=== PATIENT | female | born 1985 | race Caucasian/White ===

== ENCOUNTER 2016-05-24 18:54 | Emergency (ER) | payer BC, OTHER ==
[2016-05-24 19:01] VITALS: BP 108/71; PULSE 116; BMI 25.8
[2016-05-24] MEDS ORDERED: ACETAMINOPHEN 325 MG TABLET (FP) PO ONE (19:01)
[2016-05-24 19:56] LABS: BASOPHIL 0.3 % (0-2.0); MCH 27.1 pg (25.7-33.7); MCHC 33.9 g/dl (32.0-36.0); MEAN CELL VOLUME 79.9 fl (80-96); MEAN PLT VOLUME 12.9 fl (7.5-11.1); NEUTROPHILS 89.1 % (42.8-82.8); RDW 12.1 % (11.6-15.6); WHITE BLOOD COUNT 10.4 K/mm3 (4.0-10.0)
[2016-05-24 20:04] LABS: URINE APPEARANCE CLEAR; URINE BILIRUBIN NEGATIVE (NEGATIVE); URINE COLOR LTYELLOW; URINE GLUCOSE (UA) 3+ (NEGATIVE); URINE KETONE NEGATIVE (NEGATIVE); URINE LEUK ESTERASE NEGATIVE (NEGATIVE); URINE NITRITE NEGATIVE (NEGATIVE); URINE UROBILINOGEN NEGATIVE E.U./dl (0.2-1.0)
[2016-05-24 20:08] LABS: URINE BLOOD 2+ (NEGATIVE); URINE PROTEIN 2+ (NEGATIVE)
[2016-05-24 20:10] LABS: URINE RBC 40 /hpf (0-3); URINE WBC 4 /hpf (3-5)
[2016-05-24 20:20] LABS: ALBUMIN 2.9 g/dl (3.4-5.0); ANION GAP 12 (8-16); CALCIUM 8.7 mg/dL (8.5-10.1); CO2 25 mmol/L (21-32); GLUCOSE,RANDOM 291 mg/dL (74-106)
[2016-05-24 20:23] LABS: ALK PHOS 83 U/L (45-117); BILIRUBIN,TOTAL 0.3 mg/dL (0.2-1.0); COCKROFT - GAULT 102.8075; CREATININE 0.9 mg/dL (0.55-1.02); SGOT/AST 21 U/L (15-37); SGPT/ALT 14 U/L (12-78); TOT PROT 6.9 g/dl (6.4-8.2)
[2016-05-24 20:36] LABS: PLATELET COMMENT2 NO CLUMPING NOTED; PLATELET COUNT 105 K/MM3 (134-434); PLATELET ESTIMATE DECREASED (NORMAL)
[2016-05-24] MEDS ORDERED: SODIUM CHLORIDE 1,000 ML IV STA ×2 (20:45→22:36)
[2016-05-24] MEDS ORDERED: METOCLOPRAMIDE HCL INJECTION 10 MG/2 ML VIAL IVPB ONE (20:45)
[2016-05-24] MEDS ORDERED: METOCLOPRAMIDE HCL INJECTION 10 MG/2 ML VIAL ONE (20:47)
[2016-05-24] MEDS ORDERED: PANTOPRAZOLE SODIUM 40 MG in SODIUM CHLORIDE 100 ML IVPB ONE (22:36)
--- NOTE | 2016-05-24 22:41 | PDOC ---
History of Present Illness - General Chief Complaint: Cold Symptoms Stated Complaint: FEVER/VOMITING/BP PROBLEM Time Seen by Provider: 05/24/16 19:19 History Source: Patient Exam Limitations: No Limitations - History of Present Illness Initial Comments: 05/24/16 22:37 30yo Female patient presents to ED c/o fever (103), vomiting since Wednesday. Patient states prior to symptoms, she and significant other ate takeout and shortly developed symptoms afterward. Patient states she is currently being treated for UTI/Yeast infection. Associated H/A. Denies any other complaints at this time. Timing/Duration: getting worse Severity: mild Modifying Factors: worse with: cold therapy, eating, immobilization, medication , movement, rest, other Associated Symptoms: denies: denies symptoms, chest pain, cough, diaphoresis, fever/chills, headaches, loss of appetite, malaise, nausea/vomiting, rash, seizure, shortness of breath, syncope, weakness, other Past History - Travel Traveled outside of the country in the last 30 days: No Close contact w/someone who was outside of country & ill: No - Past Medical History Allergies/Adverse Reactions: Allergies Allergy/AdvReac Type Severity Reaction Status Date / Time No Known Allergies Allergy Verified 05/24/16 19:01 Home Medications: Ambulatory Orders Insulin (Novolog 70/30) [Novolog Mix 70/30 Vial] 0 ml SQ BID 09/08/15 Levofloxacin [Levaquin -] 500 mg PO DAILY #7 tablet 09/08/15 Famotidine [Pepcid -] 40 mg PO BID #14 tablet 05/25/16 Ondansetron [Zofran Odt -] 4 mg SL Q6H PRN #20 od.tablet 05/25/16 Diabetes: Yes (juvenile insulin dependent) - Psycho/Social/Smoking Cessation Hx Anxiety: No Suicidal Ideation: No Smoking History: Never smoked Have you smoked in the past 12 months: No Hx Alcohol Use: No Drug/Substance Use Hx: No Substance Use Type: None Review of Systems - Review of Systems Able to Perform ROS?: Yes Is the patient limited Turkish proficient: No Constitutional: No: Chills, Fever Respiratory: No: Cough, Shortness of Breath, Stridor, Wheezing Cardiac (ROS): No: Chest Pain, Lightheadedness, Palpitations, Syncope, Chest Tightness ABD/GI: Yes: Nausea, Poor Fluid Intake, Vomiting, Other (Generalized abdominal pain). No: Constipated, Diarrhea, Difficulty Swallowing, Poor Appetite, Rectal Bleeding, Abdominal cramping : No: Burning, Dysuria, Discharge, Frequency Musculoskeletal: No: Back Pain All Other Systems: Reviewed and Negative *Physical Exam - Vital Signs Last Vital Signs Temp Pulse Resp BP Pulse Ox 102.0 F H 116 H 20 108/71 99 05/24/16 18:58 05/24/16 18:58 05/24/16 18:58 05/24/16 18:58 05/24/16 18:58 - Physical Exam General Appearance: Yes: Nourished, Appropriately Dressed, Mild Distress. No: Apparent Distress, Moderate Distress, Severe Distress Neck: positive: Trachea midline, Normal Thyroid, Supple. negative: Lymphadenopathy (R), Lymphadenopathy (L) Respiratory/Chest: positive: Lungs Clear, Normal Breath Sounds. negative: Respiratory Distress, Accessory Muscle Use, Labored Respiration, Rapid RR, Stridor, Wheezing Cardiovascular: positive: Regular Rhythm, Regular Rate. negative: Edema, JVD, Murmur Gastrointestinal/Abdominal: positive: Normal Bowel Sounds, Tender, Soft, Increased Bowel Sounds, Tenderness (Generalized. No focal region of tenderness.) . negative: Distended, Guarding, Rebound Musculoskeletal: positive: Normal Inspection. negative: CVA Tenderness Extremity: positive: Normal Capillary Refill, Normal Inspection, Normal Range of Motion Integumentary: positive: Normal Color, Dry, Warm Neurologic: positive: solutions engineer II-XII NML intact, Fully Oriented, Alert, Normal Mood/ Affect, Normal Response, Motor Strength 5/5 ED Treatment Course - LABORATORY CBC & Chemistry Diagram: 05/24/16 19:30 05/24/16 19:30 - ADDITIONAL ORDERS Additional order review: Laboratory Results 05/24/16 05/24/16 19:41 19:30 Sodium 134 L Potassium 4.0 Chloride 97 L Carbon Dioxide 25 Anion Gap 12 BUN 13 D Creatinine 0.9 Creat Clearance w eGFR > 60 Random Glucose 291 H Calcium 8.7 Total Bilirubin 0.3 D AST 21 D ALT 14 D Alkaline Phosphatase 83 Total Protein 6.9 Albumin 2.9 L Lipase 68 L Urine Color Ltyellow Urine Appearance Clear Urine pH 6.0 Ur Specific [place] 1.031 Urine Protein 2+ H Urine Glucose (UA) 3+ H Urine Ketones Negative Urine Blood 2+ H Urine Nitrite Negative Urine Bilirubin Negative Urine Urobilinogen Negative Ur Leukocyte Esterase Negative Urine RBC 40 Urine WBC 4 Ur Epithelial Cells Rare Urine HCG, Qual Negative 05/24/16 19:30 RBC 4.38 MCV 79.9 L MCHC 33.9 RDW 12.1 MPV 12.9 H Neutrophils % 89.1 H Lymphocytes % 5.4 L D Monocytes % 5.2 Eosinophils % 0.0 Basophils % 0.3 - Medications Given in the ED: ED Medications Discontinued Medications Generic Name Dose Route Start Last Admin Trade Name Freq PRN Reason Stop Dose Admin Acetaminophen 650 mg 05/24/16 19:01 05/24/16 19:02 Tylenol - PO 05/24/16 19:02 650 mg NOW ONE Administration Sodium Chloride 1,000 mls @ 1,000 mls/hr 05/24/16 20:45 05/24/16 20:54 Normal Saline - IV 05/24/16 21:44 1,000 mls/hr ASDIR STA Administration Metoclopramide HCl 10 mg 05/24/16 20:45 05/24/16 20:55 Reglan Injection - IVPB 05/24/16 20:46 10 mg ONCE ONE Administration Medical Decision Making - Medical Decision Making 05/25/16 01:59 Re-evaluation: Patient in room eating potato chips, no acute distress and is requesting to be d/c'd *DC/Admit/Observation/Transfer Diagnosis at time of Disposition: Viral gastroenteritis - Discharge Dispostion Disposition: HOME Condition at time of disposition: Improved Admit: No - Prescriptions Prescriptions: Famotidine [Pepcid -] 40 mg PO BID #14 tablet Ondansetron [Zofran Odt -] 4 mg SL Q6H PRN #20 od.tablet PRN Reason: Nausea - Referrals Referrals: Dinah Woody [Primary Care Provider] - - Patient Instructions Printed Discharge Instructions: DI for Viral Gastroenteritis -- Adult Additional Instructions: FOLLOW UP WITH YOUR PRIMARY CARE PROVIDER. TAKE MEDICATIONS PRESCRIBED. AVOID ALCOHOL, SPICY FOODS X 2 WEEKS. RETURN IF SYMPTOMS WORSEN OR ANY CONCERNS FOR FURTHER EVALUATION. Print Language: SYRIAC
[2016-05-24] MEDS ORDERED: PANTOPRAZOLE SODIUM 100 ML IVPB ONE (22:50)
[2016-05-24] MEDS ORDERED: ACETAMINOPHEN 500 MG TABLET (FP) PO ONE (23:23)
[2016-05-24] MEDS ORDERED: ACETAMINOPHEN 325 MG TABLET (FP) ONE (23:27)
[2016-05-25] MEDS ORDERED: KETOROLAC TROMETHAMINE 30 MG/1 ML VIAL IVPUSH ONE (00:59)
[2016-05-25] MEDS ORDERED: KETOROLAC TROMETHAMINE 30 MG/1 ML VIAL ONE (01:10)
[2016-05-25 01:15] VITALS: TEMP 98.8
== END 2016-05-25 02:32 | disposition home or self-care (01) ==
LOC: JER 18:54
PROC: 3E033GC Introduction of Other Therapeutic Substance into Peripheral Vein, Percutaneous Approach (ICD-10-PCS; principal; 2016-05-24)
DX: A08.4 Viral intestinal infection, unspecified (principal); B97.89 Other viral agents as the cause of diseases classified elsewhere; E10.9 Type 1 diabetes mellitus without complications; Z79.4 Long term (current) use of insulin
CPT/HCPCS: 36415; 80053; 81003; 81015; 83690; 84703; 85025; 96374; 99283-25

== ENCOUNTER 2016-10-19 02:30 | Emergency (ER) | payer OTHER ==
[2016-10-19] MEDS ORDERED: SODIUM CHLORIDE 0.9% 1000 ML INFUS.BAG IV PRN (02:50)
[2016-10-19 02:52] VITALS: BMI 26.6
[2016-10-19] MEDS ORDERED: ACETAMINOPHEN 1000 MG/100 ML VIAL (NON FORMULARY) IVPB ONE ×2 (02:56→22:08)
[2016-10-19] MEDS ORDERED: ACETAMINOPHEN INJECTION 100 ML IVPB ONE (02:57)
--- NOTE | 2016-10-19 03:17 | PDOC ---
History of Present Illness - General Chief Complaint: Nausea/Vomiting Stated Complaint: VOMITING,FEVER,DIZZINESS Time Seen by Provider: 10/19/16 02:41 - History of Present Illness Initial Comments: 10/19/16 03:07 CHIEF COMPLAINT: lower abd pain, vomiting, fever HISTORY OF PRESENT ILLNESS: 31 yo F with hx of IDDM, HTN presents to ED with fever, abdominal pain, and vomiting since this afternoon. Patient reports that she has vomited 6 times and had a fever "of like 100F." Patient states she last took insulin this afternoon and her last blood sugar check was "around 200 " this afternoon. Patient states she does not remember her LMP as "it is irregular all the time." PAST MEDICAL HISTORY: as per HPI FAMILY HISTORY: Denies SOCIAL HISTORY: Denies tobacco, alcohol, illicit drug use. SURGICAL HISTORY: , R toe amputation s/p diabetic ulcer ALLERGIES: No known drug allergies REVIEW OF SYSTEMS General/Constitutional: Fever since this afternoon. Denies weakness, weight change. HEENT: Denies change in vision. Denies ear pain or discharge. Denies sore throat. Cardiovascular: Denies chest pain or shortness of breath. Respiratory: Denies cough, wheezing, or hemoptysis. Gastrointestinal: Vomiting, 6x today. Denies diarrhea or constipation. Denies rectal bleeding. Genitourinary: Denies dysuria, frequency, or change in urination. Musculoskeletal: Denies joint or muscle swelling or pain. Denies neck or back pain. Skin and breasts: Denies rash or easy bruising. Neurologic: Denies headache, vertigo, loss of consciousness, or loss of sensation. PHYSICAL EXAM General Appearance: Well-appearing, appropriately dressed. No apparent distress. HEENT: EOMI, PERRLA, normal ENT inspection, normal voice, TMs normal, pharynx normal. No conjunctival pallor. No photophobia, scleral icterus. Neck: Supple. Trachea midline. No tenderness, rigidity, carotid bruit, stridor , lymphadenopathy, or thyromegaly. Respiratory/Chest: Lungs CTAB. No shortness of breath, chest tenderness, respiratory distress, accessory muscle use. No crackles, rales, rhonchi, stridor , wheezing, dullness Cardiovascular: RRR. S1, S2. Gastrointestinal/Abdominal: Soft, protuberant abdomen. Tenderness to palpation to lower abdomen b/l. Normal bowel sounds. No organomegaly, pulsatile mass, guarding, hernia, hepatomegaly, splenomegaly. Musculoskeletal/Extremities: Normal inspection. FROM of all extremities, normal capillary refill. Pelvis Stable. No CVA tenderness. No tenderness to extremities, pedal edema, swelling, erythema or deformity. Integumentary: Appropriate color, dry, warm. No cyanosis, erythema, jaundice or rash Neurologic: bow tacker II-XII intact. Fully oriented, alert. Appropriate mood/affect. Motor strength 5/5. No appreciable EOM palsy, facial droop or sensory deficit. Past History - Past Medical History Allergies/Adverse Reactions: Allergies Allergy/AdvReac Type Severity Reaction Status Date / Time No Known Allergies Allergy Verified 05/24/16 19:01 Home Medications: Ambulatory Orders Insulin (Novolog 70/30) [Novolog Mix 70/30 Vial] 0 ml SQ BID 09/08/15 Cetirizine HCl [All Day Allergy] 10 mg PO DAILY 10/19/16 Gabapentin 300 mg PO TID 10/19/16 Insulin Lispro [Humalog] 8 unit SQ 10/19/16 Lisinopril [Zestril] 2.5 mg PO DAILY 10/19/16 Metformin HCl 500 mg PO HS 10/19/16 Metformin HCl [Glucophage] 1,000 mg PO AM 10/19/16 Montelukast Na [Singulair -] 10 mg PO DAILY 10/19/16 Naproxen [Naprosyn -] 500 mg PO PRN 10/19/16 Nitrofurantoin Monohyd/M-Cryst [Macrobid -] 100 mg PO BID #14 capsule 10/19/16 Diabetes: Yes (juvenile insulin dependent) - Psycho/Social/Smoking Cessation Hx Anxiety: No Suicidal Ideation: No Smoking History: Never smoked Have you smoked in the past 12 months: No Information on smoking cessation initiated: No Hx Alcohol Use: No Drug/Substance Use Hx: No Substance Use Type: None *Physical Exam - Vital Signs Last Vital Signs Temp Pulse Resp BP Pulse Ox 101.4 F H 122 H 19 151/94 97 10/19/16 02:49 10/19/16 02:49 10/19/16 02:49 10/19/16 02:49 10/19/16 02:49 ED Treatment Course - LABORATORY CBC & Chemistry Diagram: 10/19/16 03:12 10/19/16 03:12 - RADIOLOGY Radiology Studies Ordered: Category Date Time Status CHEST X-RAY PORTABLE* [RAD] Stat Radiology 10/19/16 02:50 Ordered Medical Decision Making - Medical Decision Making 10/19/16 03:17 31 yo F with hx of IDDM presents to ED with fever, lower abdominal pain, and vomiting since this afternoon. VS remarkable for temp 101.4, HR 122. Full sepsis workup ordered. -Tylenol IVPB Laboratory Tests 10/19/16 10/19/16 03:12 03:12 WBC 17.6 H D Sodium 135 L Potassium 5.2 H D BUN 35 H D Creatinine 1.3 H D Random Glucose 278 H -A&P CT r/o appy vs diverticulitis -1L IVF -2 units insulin SQ 10/19/16 06:16 Repeat VS stable. Patient finished drinking oral contrast at 545. Due for CT at 6:45 am. Laboratory Tests 10/19/16 05:30 Urine Glucose (UA) 3+ H Urine Blood 2+ H Urine RBC 9 Urine WBC 33 -Macrobid rx sent to pharm Case discussed in detail with oncoming emergency provider including history, physical exam and ancillary studies. In brief, this patient is being seen in the ED for a chief complaint of: abdominal pain, fever, vomiting I have completed the initial assessment interview note and have ordered the following labs: sepsis workup I have reviewed the following results: all Pending results: CT Please call the PCP: Dinah Woody Plan for disposition as follows: pending Oncoming NPBilly Castillo has assumed care for the patient and will complete the evaluation and treatment. *DC/Admit/Observation/Transfer Diagnosis at time of Disposition: UTI (urinary tract infection) Qualifiers: Urinary tract infection type: site unspecified Hematuria presence: with hematuria Qualified Code(s): N39.0 - Urinary tract infection, site not specified - Prescriptions Prescriptions: Nitrofurantoin Monohyd/M-Cryst [Macrobid -] 100 mg PO BID #14 capsule - Referrals Referrals: Dinah Woody [Primary Care Provider] -
[2016-10-19 03:26] LABS: EOSINOPHIL 7.8 % (0-4.5); MCH 27.5 pg (25.7-33.7); MCHC 33.6 g/dl (32.0-36.0); MEAN CELL VOLUME 81.9 fl (80-96); MEAN PLT VOLUME 12.5 fl (7.5-11.1); NEUTROPHILS 64.2 % (42.8-82.8); PLATELET COUNT 88 K/MM3 (134-434); WHITE BLOOD COUNT 17.6 K/mm3 (4.0-10.0)
[2016-10-19 03:31] LABS: VENOUS BLOOD GAS HCO3 27.1 meq/L (19-25); VENOUS PH 7.37 (7.32-7.42)
[2016-10-19] MEDS ORDERED: ONDANSETRON 4 MG/2 ML VIAL IVPUSH ONE (03:40)
[2016-10-19 03:51] LABS: INR 1.01 (0.82-1.09); PROTHROMBIN TIME (PATIENT) 11.1 SEC (9.98-11.88)
[2016-10-19] MEDS ORDERED: ONDANSETRON 4 MG/2 ML VIAL ONE (03:51)
[2016-10-19 03:54] LABS: ACTIVATED PTT 27.7 SECONDS (26.9-34.4)
[2016-10-19 04:03] LABS: ALBUMIN 4.6 g/dl (3.4-5.0); ANION GAP 6 (8-16); BILIRUBIN,TOTAL 0.4 mg/dL (0.2-1.0); CALCIUM 9.2 mg/dL (8.5-10.1); CO2 28 mmol/L (21-32); CREATININE 1.3 mg/dL (0.55-1.02); GLUCOSE,RANDOM 278 mg/dL (74-106); SGOT/AST 13 U/L (15-37); SGPT/ALT 14 U/L (12-78); TOT PROT 8.2 g/dl (6.4-8.2)
[2016-10-19 04:06] LABS: ALK PHOS 89 U/L (45-117)
[2016-10-19 04:07] LABS: CPK 81 IU/L (26-192); TROPONIN I < 0.02 ng/ml (0.00-0.05)
[2016-10-19 06:04] LABS: URINE APPEARANCE SLCLOUDY; URINE BILIRUBIN NEGATIVE (NEGATIVE); URINE BLOOD 2+ (NEGATIVE); URINE COLOR LTYELLOW; URINE GLUCOSE (UA) 3+ (NEGATIVE); URINE KETONE NEGATIVE (NEGATIVE); URINE LEUK ESTERASE TRACE (NEGATIVE); URINE NITRITE NEGATIVE (NEGATIVE); URINE PROTEIN NEGATIVE (NEGATIVE); URINE UROBILINOGEN NEGATIVE mg/dL (0.2-1.0)
[2016-10-19] MEDS ORDERED: INSULIN REGULAR HUMAN 100 UNITS/ML *VIAL SQ ONE (06:18)
[2016-10-19 06:32] LABS: URINE BACTERIA MANY /hpf (NONE SEEN); URINE HYALINE CAST 1 /lpf; URINE MUCUS RARE; URINE RBC 9 /hpf (0-3); URINE WBC 33 /hpf (3-5)
--- NOTE | 2016-10-19 08:50 | PDOC ---
*Physical Exam - Vital Signs Last Vital Signs Temp Pulse Resp BP Pulse Ox 98.6 F 97 H 17 103/63 98 10/19/16 06:11 10/19/16 06:11 10/19/16 06:11 10/19/16 06:11 10/19/16 06:11 ED Treatment Course - LABORATORY CBC & Chemistry Diagram: 10/19/16 03:12 10/19/16 03:12 - ADDITIONAL ORDERS Additional order review: Laboratory Results 10/19/16 10/19/16 10/19/16 05:30 03:34 03:20 INR PTT (Actin FS) VBG pH 7.37 POC VBG pCO2 48.7 POC VBG pO2 22.0 L Mixed VBG HCO3 27.1 H Sodium Potassium Chloride Carbon Dioxide Anion Gap BUN Creatinine Creat Clearance w eGFR Random Glucose Lactic Acid Calcium Total Bilirubin AST ALT Alkaline Phosphatase Creatine Kinase Troponin I Total Protein Albumin Lipase Serum , Qual Negative Urine Color Ltyellow Urine Appearance Slcloudy Urine pH 5.0 Urine Protein Negative Urine Glucose (UA) 3+ H Urine Ketones Negative Urine Blood 2+ H Urine Nitrite Negative Urine Bilirubin Negative Urine Urobilinogen Negative Ur Leukocyte Esterase Trace Urine RBC 9 Urine WBC 33 Ur Epithelial Cells Rare Urine Bacteria Many Hyaline Casts 1 Urine Mucus Rare Urine HCG, Qual Negative Acetone, Qual Blood Type Antibody Screen 10/19/16 10/19/16 10/19/16 03:12 03:12 03:12 INR PTT (Actin FS) VBG pH POC VBG pCO2 POC VBG pO2 Mixed VBG HCO3 Sodium Potassium Chloride Carbon Dioxide Anion Gap BUN Creatinine Creat Clearance w eGFR Random Glucose Lactic Acid 1.3 Calcium Total Bilirubin AST ALT Alkaline Phosphatase Creatine Kinase 81 Troponin I < 0.02 Total Protein Albumin Lipase Serum , Qual Urine Color Urine Appearance Urine pH Urine Protein Urine Glucose (UA) Urine Ketones Urine Blood Urine Nitrite Urine Bilirubin Urine Urobilinogen Ur Leukocyte Esterase Urine RBC Urine WBC Ur Epithelial Cells Urine Bacteria Hyaline Casts Urine Mucus Urine HCG, Qual Acetone, Qual Blood Type A POSITIVE Antibody Screen Negative 10/19/16 10/19/16 10/19/16 03:12 03:12 03:12 INR 1.01 PTT (Actin FS) 27.7 VBG pH POC VBG pCO2 POC VBG pO2 Mixed VBG HCO3 Sodium Potassium Chloride Carbon Dioxide Anion Gap BUN Creatinine Creat Clearance w eGFR Random Glucose Lactic Acid Calcium Total Bilirubin AST ALT Alkaline Phosphatase Creatine Kinase Troponin I Total Protein Albumin Lipase 172 Serum , Qual Urine Color Urine Appearance Urine pH Urine Protein Urine Glucose (UA) Urine Ketones Urine Blood Urine Nitrite Urine Bilirubin Urine Urobilinogen Ur Leukocyte Esterase Urine RBC Urine WBC Ur Epithelial Cells Urine Bacteria Hyaline Casts Urine Mucus Urine HCG, Qual Acetone, Qual Negative L Blood Type Antibody Screen 10/19/16 03:12 INR PTT (Actin FS) VBG pH POC VBG pCO2 POC VBG pO2 Mixed VBG HCO3 Sodium 135 L Potassium 5.2 H D Chloride 101 Carbon Dioxide 28 Anion Gap 6 L BUN 35 H D Creatinine 1.3 H D Creat Clearance w eGFR 47.17 Random Glucose 278 H Lactic Acid Calcium 9.2 Total Bilirubin 0.4 D AST 13 L D ALT 14 Alkaline Phosphatase 89 Creatine Kinase Troponin I Total Protein 8.2 Albumin 4.6 D Lipase Serum , Qual Urine Color Urine Appearance Urine pH Urine Protein Urine Glucose (UA) Urine Ketones Urine Blood Urine Nitrite Urine Bilirubin Urine Urobilinogen Ur Leukocyte Esterase Urine RBC Urine WBC Ur Epithelial Cells Urine Bacteria Hyaline Casts Urine Mucus Urine HCG, Qual Acetone, Qual Blood Type Antibody Screen 10/19/16 03:12 RBC 4.45 MCV 81.9 MCHC 33.6 RDW 13.0 MPV 12.5 H Neutrophils % 64.2 D Lymphocytes % 10.9 D Monocytes % 17.1 H D Eosinophils % 7.8 H D Basophils % 0.0 - Medications Given in the ED: ED Medications Discontinued Medications Generic Name Dose Route Start Last Admin Trade Name Freq PRN Reason Stop Dose Admin Acetaminophen 1,000 mg 10/19/16 02:56 10/19/16 03:22 Ofirmev Injection - IVPB 10/19/16 02:57 1,000 mg ONCE ONE Administration Insulin Human Regular 2 units 10/19/16 06:18 10/19/16 06:30 Novolin R Vial *For Ivpush Or Iv Drip Only* SQ 10/19/16 06:19 2 units ONCE ONE Administration Ondansetron HCl 8 mg 10/19/16 03:40 10/19/16 03:58 Zofran Injection IVPUSH 10/19/16 03:41 8 mg ONCE ONE Administration Medical Decision Making - Medical Decision Making 10/19/16 08:48 Pt received in sign out from SAL [place]. Pt with lower abd pain with n/v. Pt arrived febrile and had noted elevated leukcytes. Pt given ivf and had noted uti while in CT. CT of abdomen and pelvis shows no acute pathology. Patient will be discharged home with Macrobid. *DC/Admit/Observation/Transfer Diagnosis at time of Disposition: UTI (urinary tract infection) Qualifiers: Urinary tract infection type: site unspecified Hematuria presence: with hematuria Qualified Code(s): N39.0 - Urinary tract infection, site not specified - Discharge Dispostion Disposition: HOME Condition at time of disposition: Good - Prescriptions Prescriptions: Nitrofurantoin Monohyd/M-Cryst [Macrobid -] 100 mg PO BID #14 capsule - Referrals Referrals: Dinah Woody [Primary Care Provider] - - Patient Instructions Printed Discharge Instructions: DI for Urinary Tract Infection (UTI) Additional Instructions: CAT scan was negative for acute findings. You do have a urinary tract infection and a prescription was sent to start antibiotic today. Please drink plenty of fluids. Return to ED if symptoms worsen. - Post Discharge Activity
[2016-10-19 09:13] VITALS: BP 105/68; PULSE 88; TEMP 97.6
--- NOTE | 2016-10-19 22:11 | EKG ---
Test Reason : Blood Pressure : / mmHG Vent. Rate : 117 BPM Atrial Rate : 117 BPM P-R Int : 114 ms QRS Dur : 082 ms QT Int : 326 ms P-R-T Axes : 035 027 020 degrees QTc Int : 454 ms SINUS TACHYCARDIA OTHERWISE NORMAL ECG NO PREVIOUS ECGS AVAILABLE Confirmed by PATIENCE ALONSO MD ([id number]) on 10/19/2016 10:10:52 PM Referred By: Confirmed By:PATIENCE ALONSO MD
== END 2016-10-19 09:00 | disposition home or self-care (01) ==
LOC: JER 02:30
PROC: 3E013VG Introduction of Insulin into Subcutaneous Tissue, Percutaneous Approach (ICD-10-PCS; principal; 2016-10-19)
PROC: 3E033NZ Introduction of Analgesics, Hypnotics, Sedatives into Peripheral Vein, Percutaneous Approach (ICD-10-PCS; 2016-10-19)
PROC: 3E033GC Introduction of Other Therapeutic Substance into Peripheral Vein, Percutaneous Approach (ICD-10-PCS; 2016-10-19)
DX: N39.0 Urinary tract infection, site not specified (principal); B96.89 Other specified bacterial agents as the cause of diseases classified elsewhere; E10.9 Type 1 diabetes mellitus without complications; Z79.4 Long term (current) use of insulin
CPT/HCPCS: 71010-TC; 74176-TC; 80053; 81003; 81015; 82009; 82803; 83605; 83690; 84484; 84703; 85025; 85610; 85730; 86850; 86900; 86901; 87040; 87086; 87186; 93005; 93010; 96372-25; 96374; 96375; 99282-25

== ENCOUNTER 2016-10-19 15:55 | Inpatient (IN) | payer OTHER ==
--- NOTE | 2016-10-19 16:36 | PDOC ---
History of Present Illness - General History Source: Patient <Meche Cotter - Last Filed: 10/19/16 16:35> <Valeria Keane - Last Filed: 10/19/16 19:44> - History of Present Illness Initial Comments: 10/19/16 17:59 The patient is a 31 year old female, with a significant past medical history of diabetes (taking metformin, Humalog, and lantus), who returns to the emergency department for generalized weakness, increased left flank pain, persistent vomiting, and fatigue s/p discharge from the ED at 8AM this morning. The patient states she had a negative CT scan this morning and was discharged with an antibiotic for UTI, however, reports vomiting after taking her first dose of Abx today. The patient reports her last episode of emesis was 30 minutes prior to her ED arrival, nonbilious/nonbloody. The patient states her pain has been constant today, radiating from her left midback to her left flank and down to her left lower quadrant. She reports the IV Tylenol helped with her pain when she was given it around 3am this morning, however, reports the pain returned this morning and has been unable to keep the pain under control. She states her pain is 10/10 now. She also states she has not been able to eat since secondary to her nausea. She reportedly had a fever and chills yesterday, however, denies fever now. LBM: yesterday She denies chest pain, shortness of breath, headache and dizziness. She denies diarrhea and constipation. She denies dysuria, frequency, urgency and hematuria. Allergies: NKDA Social history: Denies toxic habits <Soumya Santana - Last Filed: 10/19/16 22:24> - General Chief Complaint: Pain, Acute Stated Complaint: ABD PAIN Time Seen by Provider: 10/19/16 16:34 Past History - Past Medical History Diabetes: Yes (juvenile insulin dependent) - Immunization History Immunization Up to Date: No - Psycho/Social/Smoking Cessation Hx Anxiety: No Suicidal Ideation: No Smoking History: Never smoked Have you smoked in the past 12 months: No Hx Alcohol Use: No Drug/Substance Use Hx: No Substance Use Type: None <David Cotterica - Last Filed: 10/19/16 16:35> <Valeria Keane - Last Filed: 10/19/16 19:44> <Soumya Santana - Last Filed: 10/19/16 22:24> - Past Medical History Allergies/Adverse Reactions: Allergies Allergy/AdvReac Type Severity Reaction Status Date / Time No Known Allergies Allergy Verified 10/19/16 16:04 Home Medications: Ambulatory Orders Cetirizine HCl [All Day Allergy] 10 mg PO DAILY 10/19/16 Gabapentin 300 mg PO TID 10/19/16 Insulin Glargine,Hum.rec.anlog [Lantus Solostar PEN (NF)] 30 units SQ HS Insulin Lispro [Humalog] 8 unit SQ TID 10/19/16 Lisinopril [Zestril] 2.5 mg PO DAILY 10/19/16 Metformin HCl 500 mg PO HS 10/19/16 Metformin HCl [Glucophage] 1,000 mg PO AM 10/19/16 Montelukast Na [Singulair -] 10 mg PO DAILY 10/19/16 Naproxen [Naprosyn -] 500 mg PO PRN 10/19/16 Nitrofurantoin Monohyd/M-Cryst [Macrobid -] 100 mg PO BID #14 capsule 10/19/16 Review of Systems - Review of Systems Able to Perform ROS?: Yes Comments:: 10/19/16 17:59 CONSTITUTIONAL: Absent: fever, chills, diaphoresis, generalized weakness, malaise, loss of appetite HEENT: Absent: rhinorrhea, nasal congestion, throat pain, throat swelling, difficulty swallowing, mouth swelling, ear pain, eye pain, visual Changes CARDIOVASCULAR: Absent: chest pain, syncope, palpitations, irregular heart rate, lightheadedness , peripheral edema RESPIRATORY: Absent: cough, shortness of breath, dyspnea with exertion, orthopnea, wheezing, stridor, hemoptysis GASTROINTESTINAL: (+) nausea and vomiting. Absent: abdominal distension, diarrhea, constipation, melena, hematochezia GENITOURINARY: (+) left flank with LLQ radiation. Absent: dysuria, frequency, urgency, hesitancy, hematuria, genital pain MUSCULOSKELETAL: Absent: myalgia, arthralgia, joint swelling SKIN: Absent: rash, itching, pallor HEMATOLOGIC/IMMUNOLOGIC: Absent: easy bleeding, easy bruising, lymphadenopathy, frequent infections ENDOCRINE: Absent: unexplained weight gain, unexplained weight loss, heat intolerance, cold intolerance NEUROLOGIC: Absent: headache, focal weakness or paresthesias, dizziness, unsteady gait, seizure, mental status changes, bladder or bowel incontinence PSYCHIATRIC: Absent: anxiety, depression, suicidal or homicidal ideation, hallucinations. <Soumya Santana - Last Filed: 10/19/16 22:24> *Physical Exam - Vital Signs Last Vital Signs Temp Pulse Resp BP Pulse Ox 98.4 F 100 H 18 92/64 99 10/19/16 16:04 10/19/16 16:04 10/19/16 16:04 10/19/16 16:04 10/19/16 16:04 <Meche Cotter - Last Filed: 10/19/16 16:35> - Vital Signs Last Vital Signs Temp Pulse Resp BP Pulse Ox 98.4 F 100 H 18 92/64 99 10/19/16 16:04 10/19/16 16:04 10/19/16 16:04 10/19/16 16:04 10/19/16 16:04 <Valeria Keane - Last Filed: 10/19/16 19:44> - Vital Signs Last Vital Signs Temp Pulse Resp BP Pulse Ox 98.4 F 100 H 18 92/64 99 10/19/16 16:04 10/19/16 16:04 10/19/16 16:04 10/19/16 16:04 10/19/16 16:04 - Physical Exam Comments: 10/19/16 18:01 GENERAL: (+) Pt in mild distress. uncomfortable appearing. Well developed, well nourished. Awake and alert. HEENT: Normocephalic, atraumatic. PERRLA, EOMI. No conjunctival pallor. Sclera are non- icteric. Moist mucous membranes. Oropharynx is clear. NECK: Supple. Full ROM. No JVD. Carotid pulses 2+ and symmetric, without bruits. No thyromegaly. No lymphadenopathy. CARDIOVASCULAR: Regular rate and rhythm. No murmurs, rubs, or gallops. Distal pulses are 2+ and symmetric. PULMONARY: No evidence of respiratory distress. Lungs clear to auscultation bilaterally. No wheezing, rales or rhonchi. ABDOMINAL: (+) left flank ttp, left CVA tenderness, and mild left lower quadrant tenderness to palpation without guarding or rebound. Soft. Non-distended. No organomegaly. Normoactive bowel sounds. MUSCULOSKELETAL (+) Left CVA ttp. Normal range of motion at all joints. No bony deformities or tenderness. EXTREMITIES: No cyanosis. No clubbing. No edema. No calf tenderness. SKIN: Warm and dry. Normal capillary refill. No rashes. No jaundice. NEUROLOGICAL: Alert, awake, appropriate. Cranial nerves 2-12 intact. Normoreflexic in the upper and lower extremities. Normal speech. Toes are down-going bilaterally. Gait is normal without ataxia. PSYCHIATRIC: Cooperative. Good eye contact. Appropriate mood and affect. <Soumya Santana - Last Filed: 10/19/16 22:24> ED Treatment Course - LABORATORY CBC & Chemistry Diagram: 10/19/16 17:00 10/19/16 17:00 - ADDITIONAL ORDERS Additional order review: Laboratory Results 10/19/16 10/19/16 17:00 17:00 Sodium 137 Potassium 5.3 H Chloride 102 Carbon Dioxide 27 Anion Gap 8 BUN 30 H Creatinine 1.5 H Creat Clearance w eGFR 39.99 Random Glucose 318 H* Lactic Acid 1.3 Calcium 8.7 Total Bilirubin 0.8 D AST 8 L D ALT 13 Alkaline Phosphatase 80 Total Protein 7.2 Albumin 3.7 10/19/16 17:00 RBC 3.73 MCV 82.6 MCHC 33.6 RDW 13.1 MPV 12.6 H Neutrophils % Y Lymphocytes % Y - Medications Given in the ED: ED Medications Discontinued Medications Generic Name Dose Route Start Last Admin Trade Name Freq PRN Reason Stop Dose Admin Sodium Chloride 1,000 mls @ 1,000 mls/hr 10/19/16 17:03 10/19/16 17:07 Normal Saline - IV 10/19/16 18:02 1,000 mls/hr ASDIR STA Administration Piperacillin Sod/Tazobactam 50 mls @ 100 mls/hr 10/19/16 17:51 10/19/16 18:06 Sod 3.375 gm/ Dextrose IVPB 10/19/16 18:20 100 mls/hr ONCE ONE Administration Protocol Ketorolac Tromethamine 30 mg 10/19/16 18:05 10/19/16 18:06 Toradol Injection - IVPUSH 10/19/16 18:06 30 mg ONCE ONE Administration <Valeria Keane - Last Filed: 10/19/16 19:44> - LABORATORY CBC & Chemistry Diagram: 10/19/16 17:00 10/19/16 17:00 - ADDITIONAL ORDERS Additional order review: Laboratory Results 10/19/16 10/19/16 17:00 17:00 Sodium 137 Potassium 5.3 H Chloride 102 Carbon Dioxide 27 Anion Gap 8 BUN 30 H Creatinine 1.5 H Creat Clearance w eGFR 39.99 Random Glucose 318 H* Lactic Acid 1.3 Calcium 8.7 Total Bilirubin 0.8 D AST 8 L D ALT 13 Alkaline Phosphatase 80 Total Protein 7.2 Albumin 3.7 10/19/16 17:00 RBC 3.73 MCV 82.6 MCHC 33.6 RDW 13.1 MPV 12.6 H Neutrophils % Y Lymphocytes % Y <Soumya Santana - Last Filed: 10/19/16 22:24> Medical Decision Making - Medical Decision Making 10/19/16 19:02 31-year-old insulin-dependent diabetic who was seen last evening for complaints of fever, dysuria, increased frequency, CVA tenderness and vomiting At the Time she has tenderness UTI and discharged on antibiotics. However, she has intractable vomiting and has not been able to take any by mouth's. Repeat labs showed that she has increasing leukocytosis, and increased creatinine ,glucose and requires IV fluids and IV antibiotics impression _ IDDM,intractable vomiting, pyelonephritis 10/19/16 19:03 <Valeria Keane - Last Filed: 10/19/16 19:44> *DC/Admit/Observation/Transfer <Meche Cotter - Last Filed: 10/19/16 16:35> - Discharge Dispostion Admit: Yes <Valeria Keane - Last Filed: 10/19/16 19:44> - Attestations Scribe Attestion: 10/19/16 18:02 Documentation prepared by Soumya Santana, acting as medical staff manager for Valeria Keane MD <Soumya Santana - Last Filed: 10/19/16 22:24> Diagnosis at time of Disposition: Pyelonephritis, Hyperglycemia, Hypovolemia dehydration, Insulin dependent diabetes mellitus Vomiting Qualifiers: Vomiting type: unspecified Vomiting Intractability: intractable Nausea presence : with nausea Qualified Code(s): R11.2 - Nausea with vomiting, unspecified - Referrals
[2016-10-19] MEDS ORDERED: SODIUM CHLORIDE 1,000 ML IV STA (17:03)
[2016-10-19 17:14] LABS: MCH 27.8 pg (25.7-33.7); MCHC 33.6 g/dl (32.0-36.0); MEAN CELL VOLUME 82.6 fl (80-96); MEAN PLT VOLUME 12.6 fl (7.5-11.1); PLATELET COUNT 93 K/MM3 (134-434); RDW 13.1 % (11.6-15.6); WHITE BLOOD COUNT 20.1 K/mm3 (4.0-10.0)
[2016-10-19 17:43] LABS: ALBUMIN 3.7 g/dl (3.4-5.0); ANION GAP 8 (8-16); BILIRUBIN,TOTAL 0.8 mg/dL (0.2-1.0); CALCIUM 8.7 mg/dL (8.5-10.1); CO2 27 mmol/L (21-32); CREATININE 1.5 mg/dL (0.55-1.02); SGOT/AST 8 U/L (15-37); SGPT/ALT 13 U/L (12-78); TOT PROT 7.2 g/dl (6.4-8.2)
[2016-10-19 17:44] LABS: ALK PHOS 80 U/L (45-117)
[2016-10-19 17:47] LABS: GLUCOSE,RANDOM 318 mg/dL (74-106)
[2016-10-19] MEDS ORDERED: PIPERACILLIN/TAZOB 3.375 GM 3.375 GM in DEXTROSE 5%-WATER - 50 ML IVPB ONE (17:51)
[2016-10-19] MEDS ORDERED: KETOROLAC TROMETHAMINE 30 MG/1 ML VIAL ONE (17:57)
[2016-10-19] MEDS ORDERED: PIPERACILLIN/TAZOB 3.375 GM 50 ML IVPB ONE (17:57)
[2016-10-19] MEDS ORDERED: KETOROLAC TROMETHAMINE 30 MG/1 ML VIAL IVPUSH ONE (18:05)
[2016-10-19 18:17] LABS: PLATELET ESTIMATE SLT DECREASED (NORMAL)
[2016-10-19 18:18] LABS: BASOPHIL (MANUAL) 1 % (0-2.0); PLATELET COMMENT2 FEW GIANT PLTS; TOTAL CELLS COUNTED 100
[2016-10-19 18:19] LABS: PLATELET COMMENT3 NO CLUMPING NOTED
--- NOTE | 2016-10-19 19:31 | PN ---
Teaching Attending Note Name of Resident: Tani Costa ATTENDING PHYSICIAN STATEMENT I saw and evaluated the patient. I reviewed the resident's note and discussed the case with the resident. I agree with the resident's findings and plan as documented. SUBJECTIVE: 31 yo F with pmhx of IDDM who presents with weakness, L. flank pain, and vomiting. States she was in ED this am for same reason and sent home with PO abxx, but could not hold down anything due to nausea and vomiting. OBJECTIVE: Physical: VS: Vital Signs Period Temp Pulse Resp BP Sys/Cat Pulse Ox Last 24 Hr 98.4 F 100 18 92/64 99 GEN: NAD, Resting in bed HEENT: NCAT, PERRL, Throat without erythema or exudates CARD: RRR S1, S2 RESP: CTAB ABD: BSx4, NTD to palpation, L. CVA tender to palpation EXT: - C/C/E CBCD WBC 20.1 K/mm3 (4.0-10.0) H 10/19/16 17:00 RBC 3.73 M/mm3 (3.60-5.2) 10/19/16 17:00 Hgb 10.4 GM/dL (10.7-15.3) L D 10/19/16 17:00 Hct 30.9 % (32.4-45.2) L D 10/19/16 17:00 MCV 82.6 fl (80-96) 10/19/16 17:00 MCHC 33.6 g/dl (32.0-36.0) 10/19/16 17:00 RDW 13.1 % (11.6-15.6) 10/19/16 17:00 Plt Count 93 K/MM3 (134-434) L 10/19/16 17:00 MPV 12.6 fl (7.5-11.1) H 10/19/16 17:00 CMP Sodium 137 mmol/L (136-145) 10/19/16 17:00 Potassium 5.3 mmol/L (3.5-5.1) H 10/19/16 17:00 Chloride 102 mmol/L (98-107) 10/19/16 17:00 Carbon Dioxide 27 mmol/L (21-32) 10/19/16 17:00 Anion Gap 8 (8-16) 10/19/16 17:00 BUN 30 mg/dL (7-18) H 10/19/16 17:00 Creatinine 1.5 mg/dL (0.55-1.02) H 10/19/16 17:00 Creat Clearance w eGFR 39.99 (>60) 10/19/16 17:00 Random Glucose 318 mg/dL (74-106) H* 10/19/16 17:00 Calcium 8.7 mg/dL (8.5-10.1) 10/19/16 17:00 Total Bilirubin 0.8 mg/dL (0.2-1.0) D 10/19/16 17:00 AST 8 U/L (15-37) L D 10/19/16 17:00 ALT 13 U/L (12-78) 10/19/16 17:00 Alkaline Phosphatase 80 U/L (45-117) 10/19/16 17:00 Total Protein 7.2 g/dl (6.4-8.2) 10/19/16 17:00 Albumin 3.7 g/dl (3.4-5.0) 10/19/16 17:00 CT ABD/PELVIS- NO acute pathology ASSESSMENT AND PLAN: 31 yo F with pmhx of DM who presents with left flank pain found to have pyelonephritits 1.) Sepsis due to Pyelonephritits - IVF - Ucx - Ceftriaxone - Repeat LA - Renal US 2.) IDDM - C/W RAISS - FS - Lantus - Diabetic Diet 3.) IKE - IVF - Most likely pre-renal - If not imrpovement chk. lytes 5.) Hyperkalemia - S/P Insulin, recheck - EKG 6.) Thrombocytopenia - Monitor 7.) Dvt Ppx - Low Risk - Ambulate Place in Med-Sx
[2016-10-19] MEDS ORDERED: ONDANSETRON 4 MG/2 ML VIAL IVPB ONE (19:46)
[2016-10-19] MEDS ORDERED: ONDANSETRON 4 MG/2 ML VIAL IVPB PRN (20:02)
[2016-10-19] MEDS ORDERED: SODIUM CHLORIDE 1,000 ML IV SCH (20:15)
[2016-10-19] MEDS ORDERED: INSULIN (NOVOLOG) ASPART 100 UNITS/ML 10ML VIAL SQ SCH (20:15)
[2016-10-19] MEDS ORDERED: ONDANSETRON 4 MG/2 ML VIAL ONE (20:17)
[2016-10-19] MEDS ORDERED: INSULIN SLIDING SCALE (NOVOLOG) 1 VIAL SQ SCH ×3 (20:30→22:00)
--- NOTE | 2016-10-19 20:56 | HP ---
CHIEF COMPLAINT: L flank pain HISTORY OF PRESENT ILLNESS: Pt is a 31yo F w/ PMHx of DM2, frequent UTIs, who presented with severe 10/10 L flank pain. She was initially discharged from the ER with Macrobid after presenting with chills, fever (Tmax 101.4), NBNB emesis. She had WBC count and bacteria on UA. At home, the patient continued to have emesis, was unable to take PO antibiotics. She had new complaint of severe L flank pain which brought her into the ER. She describes it as a pressure, which radiates into her side. Inhaling deeply causes similar pain. She denies dysuria, frequency, urgency. No hx of trauma to back. Denies renal colic pain. Denies severe abdominal pain. Had negative test in ER. No complaints of fever or chills. Pt has had multiple UTIs in the past, 3-4x a year, never been hospitalized. ER course was notable for: (1) Zosyn x1 (2) IVNS x1 bolus (3) Repeat UA Recent Travel: Denies PAST MEDICAL HISTORY: UTIs, DM2, Neuropathy, Allergies PAST SURGICAL HISTORY: , R toe amputation Social History: Smoking: Denies Alcohol: Denies Drugs: Denies Family History: No FHx of Kidney Disease Allergies No Known Allergies Allergy (Verified 10/19/16 16:04) REVIEW OF SYSTEMS CONSTITUTIONAL: Absent: fever, chills, diaphoresis, generalized weakness, malaise, loss of appetite, weight change Present: nausea HEENT: Absent: rhinorrhea, nasal congestion, throat pain, throat swelling, difficulty swallowing, mouth swelling, ear pain, eye pain, visual changes CARDIOVASCULAR: Absent: chest pain, syncope, palpitations, irregular heart rate, lightheadedness , peripheral edema RESPIRATORY: Absent: cough, shortness of breath, dyspnea with exertion, orthopnea, wheezing, stridor, hemoptysis GASTROINTESTINAL: Absent: abdominal pain, abdominal distension, diarrhea, constipation, melena, hematochezia GENITOURINARY: Absent: dysuria, frequency, urgency, hesitancy, hematuria, flank pain, genital pain MUSCULOSKELETAL: Absent: myalgia, arthralgia, joint swelling, back pain, neck pain Present: L flank pain SKIN: Absent: rash, itching, pallor HEMATOLOGIC/IMMUNOLOGIC: Absent: easy bleeding, easy bruising, lymphadenopathy, frequent infections ENDOCRINE: Absent: unexplained weight gain, unexplained weight loss, heat intolerance, cold intolerance NEUROLOGIC: Absent: headache, focal weakness or paresthesias, dizziness, unsteady gait, seizure, mental status changes, bladder or bowel incontinence PSYCHIATRIC: Absent: anxiety, depression, suicidal or homicidal ideation, hallucinations. PHYSICAL EXAMINATION GEN: AAOx3, NAD HEENT: PERRLA, EOMi, No Cervical LAD CV: S1, S2, RRR, No murmurs LUNG: CTABL ABD: Soft, NT, ND, hypoactive BS MSK: TTP in L flank, no edema, no erythema, R 1st toe amputation NEURO: CN 2-12 intact, 5/5 MSK, 2+ reflexes, No sensation deficits. Laboratory Last Values WBC 20.1 K/mm3 (4.0-10.0) H 10/19/16 17:00 RBC 3.73 M/mm3 (3.60-5.2) 10/19/16 17:00 Hgb 10.4 GM/dL (10.7-15.3) L D 10/19/16 17:00 Hct 30.9 % (32.4-45.2) L D 10/19/16 17:00 MCV 82.6 fl (80-96) 10/19/16 17:00 MCH 27.8 pg (25.7-33.7) 10/19/16 17:00 MCHC 33.6 g/dl (32.0-36.0) 10/19/16 17:00 RDW 13.1 % (11.6-15.6) 10/19/16 17:00 Plt Count 93 K/MM3 (134-434) L 10/19/16 17:00 MPV 12.6 fl (7.5-11.1) H 10/19/16 17:00 Total Counted 100 10/19/16 17:00 Neutrophils % Y 10/19/16 17:00 Neutrophils % (Manual) 80 % (42.8-82.8) 10/19/16 17:00 Band Neuts % (Manual) 6 % (0-10) 10/19/16 17:00 Lymphocytes % Y 10/19/16 17:00 Lymphocytes % (Manual) 7 % (8-40) L 10/19/16 17:00 Monocytes % (Manual) 6 % (3.8-10.2) 10/19/16 17:00 Basophils % (Manual) 1 % (0-2.0) 10/19/16 17:00 Other Cell Type 10/19/16 17:00 Platelet Estimate Slt decreased (NORMAL) 10/19/16 17:00 Platelet Comment Few large plts 10/19/16 17:00 Platelet Comment Few giant plts 10/19/16 17:00 Sodium 137 mmol/L (136-145) 10/19/16 17:00 Potassium 5.3 mmol/L (3.5-5.1) H 10/19/16 17:00 Chloride 102 mmol/L (98-107) 10/19/16 17:00 Carbon Dioxide 27 mmol/L (21-32) 10/19/16 17:00 Anion Gap 8 (8-16) 10/19/16 17:00 BUN 30 mg/dL (7-18) H 10/19/16 17:00 Creatinine 1.5 mg/dL (0.55-1.02) H 10/19/16 17:00 Creat Clearance w eGFR 39.99 (>60) 10/19/16 17:00 POC Glucometer [id number] UNITS (()) 10/19/16 20:44 Random Glucose 318 mg/dL (74-106) H* 10/19/16 17:00 Lactic Acid 1.3 mmol/L (0.4-2.0) 10/19/16 17:00 Calcium 8.7 mg/dL (8.5-10.1) 10/19/16 17:00 Total Bilirubin 0.8 mg/dL (0.2-1.0) D 10/19/16 17:00 AST 8 U/L (15-37) L D 10/19/16 17:00 ALT 13 U/L (12-78) 10/19/16 17:00 Alkaline Phosphatase 80 U/L (45-117) 10/19/16 17:00 Total Protein 7.2 g/dl (6.4-8.2) 10/19/16 17:00 Albumin 3.7 g/dl (3.4-5.0) 10/19/16 17:00 Urine Color Ltyellow 10/19/16 20:50 Urine Appearance Slcloudy 10/19/16 20:50 Urine pH 5.0 (5.0-8.0) 10/19/16 20:50 Urine Protein Negative (NEGATIVE) 10/19/16 20:50 Urine Glucose (UA) 3+ (NEGATIVE) H 10/19/16 20:50 Urine Ketones 1+ (NEGATIVE) H 10/19/16 20:50 Urine Blood 2+ (NEGATIVE) H 10/19/16 20:50 Urine Nitrite Negative (NEGATIVE) 10/19/16 20:50 Urine Bilirubin Negative (NEGATIVE) 10/19/16 20:50 Urine Urobilinogen Negative mg/dL (0.2-1.0) 10/19/16 20:50 Ur Leukocyte Esterase 1+ (NEGATIVE) H 10/19/16 20:50 Urine RBC 7 /hpf (0-3) 10/19/16 20:50 Urine WBC 106 /hpf (3-5) 10/19/16 20:50 Ur Epithelial Cells Rare /hpf (FEW) 10/19/16 20:50 Hyaline Casts 3 /lpf 10/19/16 20:50 Urine Mucus Rare 10/19/16 20:50 Urine HCG, Qual Negative 10/19/16 20:50 Home Medication List Medication Instructions Recorded Confirmed Type Cetirizine HCl [All Day Allergy] 10 mg PO DAILY 10/19/16 10/19/16 History Gabapentin 300 mg PO TID 10/19/16 10/19/16 History Insulin Glargine,Hum.rec.anlog 30 units SQ HS 10/19/16 10/19/16 History [Lantus Solostar PEN (NF)] Insulin Lispro [Humalog] 8 unit SQ TID 10/19/16 10/19/16 History Lisinopril [Zestril] 2.5 mg PO DAILY 10/19/16 10/19/16 History Metformin HCl 500 mg PO HS 10/19/16 10/19/16 History Metformin HCl [Glucophage] 1,000 mg PO AM 10/19/16 10/19/16 History Montelukast Na [Singulair -] 10 mg PO DAILY 10/19/16 10/19/16 History Naproxen [Naprosyn -] 500 mg PO PRN 10/19/16 10/19/16 History Active Medications Generic Name Dose Route Start Last Admin Trade Name Freq PRN Reason Stop Dose Admin Acetaminophen 650 mg 10/19/16 20:56 Tylenol - PO Q4H PRN FEVER OR PAIN Acetaminophen 1,000 mg 10/19/16 22:10 Ofirmev Injection - IVPB 10/19/16 22:11 ONCE ONE Gabapentin 300 mg 10/19/16 22:00 Neurontin - PO TID MONSERRAT Sodium Chloride 1,000 mls @ 75 mls/hr 10/19/16 20:48 10/19/16 20:57 Normal Saline - IV 75 mls/hr ASDIR MONSERRAT Administration Ceftriaxone Sodium 1 gm/ 50 mls @ 100 mls/hr 10/20/16 10:00 Sodium Chloride IVPB DAILY MONSERRAT Insulin Aspart 1 vial 10/19/16 20:30 10/19/16 21:05 Novolog Vial Sliding Scale - SQ 10 units Q4H MONSERRAT Administration Protocol Insulin Aspart 8 units 10/20/16 07:00 Novolog Vial SQ TIDAC MONSERRAT Insulin Detemir 30 units 10/19/16 22:00 Levemir Vial SQ HS [facility] Lisinopril 2.5 mg 10/20/16 10:00 Prinivil PO DAILY MONSERRAT Loratadine 10 mg 10/20/16 10:00 Claritin - PO DAILY MONSERRAT Montelukast Sodium 10 mg 10/20/16 22:00 Singulair - PO HS [facility] Ondansetron HCl 4 mg 10/19/16 20:02 Zofran Injection IVPB Q6H PRN NAUSEA Imaging: CT abd/pelvis - prelim read (no acute pathology, constipation) ASSESSMENT/PLAN: Pt is a 31yo F w/ PMHx of DM2, multiple UTIs who presented with L flank pain, fevers, high WBC, admitted for pyelonephritis # Sepsis 2/2 Pyelonephritis - leuk, tachy, source urine - Ceftriaxone 1g daily - IVNS @ 75cc/hr - Renal U/S - Blood + Urine Cx pending - Repeat Lactic Acid in the AM - Pain control w/ Tylenol 650mg Q4PRN - Zofran 4mg IV for Nausea - QTc on first EKG is 454 - CBC in AM # IKE vs CKD - B/L Cr is 0.9-1.0 - Likely pre-renal azotemia from vomiting - IVNS @ 75cc/hr - BMP in AM # HyperKalemia - f/u EKG - Continue insulin - BMP in AM # Diabetes Mellitus - insulin dependent - Continue Lantus + Humalog if patient can tolerate food - Continue SSI - Hold Metformin for IEK - Continue Lisinopril # Diabetic Neuropathy - Continue Gabapentin - Pt also takes home Naproxen for neuropathic pain, held due to IKE # Thrombocytopenia - likely chronic - No acute bleeds - Continue to monitor # Hx of Allergies - Continue Claritin and Singulair - No hx of Asthma # FEN - Fluids: IVF @ 75cc/hr - Electrolytes: Monitor potassium - Nutrition: Diabetic diet # Prophylaxis - DVT: B/L SCDs - GI: None indicated - Deconditioning: PT ordered, pt uses cane at home # Dispo - Admit to Med/Surg - F/u UCx and Renal U/S Case was discussed w/ Dr Langford and Dr Zoraida Lara MD - PGY1 Internal Medicine Visit type - Emergency Visit Emergency Visit: Yes ED Registration Date: 10/19/16 Care time: The patient presented to the Emergency Department on the above date and was hospitalized for further evaluation of their emergent condition. - New Patient This patient is new to me today: Yes Date on this admission: 10/20/16 - Critical Care Critical Care patient: No
[2016-10-19] MEDS: SODIUM CHLORIDE 1,000 ML IV SCH (20:57)
[2016-10-19 21:03] LABS: URINE APPEARANCE SLCLOUDY; URINE BILIRUBIN NEGATIVE (NEGATIVE); URINE BLOOD 2+ (NEGATIVE); URINE COLOR LTYELLOW; URINE GLUCOSE (UA) 3+ (NEGATIVE); URINE KETONE 1+ (NEGATIVE); URINE NITRITE NEGATIVE (NEGATIVE); URINE PROTEIN NEGATIVE (NEGATIVE); URINE UROBILINOGEN NEGATIVE mg/dL (0.2-1.0)
[2016-10-19 21:08] LABS: URINE HYALINE CAST 3 /lpf; URINE LEUK ESTERASE 1+ (NEGATIVE); URINE MUCUS RARE; URINE RBC 7 /hpf (0-3); URINE WBC 106 /hpf (3-5)
[2016-10-19] MEDS ORDERED: metFORMIN HCL 500 MG TABLET (FP) PO SCH (22:00)
[2016-10-19] MEDS ORDERED: ACETAMINOPHEN 1000 MG/100 ML VIAL (NON FORMULARY) IVPB ONE (22:10)
[2016-10-19] MEDS: INSULIN DETEMIR 100 UNITS/ML MDV SQ SCH (23:12)
[2016-10-19] MEDS: GABAPENTIN 300 MG CAPSULE (FP) PO SCH (23:12)
[2016-10-19 23:50] VITALS: BMI 28.0
[2016-10-20] MEDS: ACETAMINOPHEN 325 MG TABLET (FP) PO PRN ×5 (02:04→21:11)
[2016-10-20] MEDS: INSULIN SLIDING SCALE (NOVOLOG) 1 VIAL SQ SCH ×6 (02:05→21:10)
[2016-10-20] MEDS: GABAPENTIN 300 MG CAPSULE (FP) PO SCH ×3 (05:39→21:11)
[2016-10-20] MEDS: INSULIN (NOVOLOG) ASPART 100 UNITS/ML 10ML VIAL SQ SCH ×3 (06:26→17:18)
[2016-10-20] MEDS ORDERED: PATIENT'S OWN MEDICATION (NON-FORMULARY) (Metformin Hcl [Glucophage] 1,000 MG) PO SCH (07:00)
[2016-10-20 08:00] LABS: MCH 27.4 pg (25.7-33.7); MCHC 33.1 g/dl (32.0-36.0); MEAN CELL VOLUME 82.8 fl (80-96); RDW 12.7 % (11.6-15.6)
[2016-10-20 08:35] LABS: ANION GAP 9 (8-16); CALCIUM 7.7 mg/dL (8.5-10.1); CO2 25 mmol/L (21-32); CREATININE 1.2 mg/dL (0.55-1.02); GLUCOSE,RANDOM 234 mg/dL (74-106)
[2016-10-20 09:50] LABS: PLATELET COMMENT2 NO CLOTTING DETECTED; PLATELET COUNT 63 K/MM3 (134-434); PLATELET ESTIMATE DECREASED (NORMAL)
[2016-10-20] MEDS ORDERED: CEFTRIAXONE 1 GM in SODIUM CHLORIDE 50 ML IVPB SCH ×2 (10:00→11:15)
[2016-10-20] MEDS: LORATADINE 10 MG TABLET PO SCH (11:06)
[2016-10-20] MEDS: LISINOPRIL 5 MG TABLET (FP) PO SCH (11:06)
[2016-10-20] MEDS ORDERED: METOCLOPRAMIDE HCL 10 MG TABLET (FP) PO PRN (13:17)
[2016-10-20 13:59] LABS: PLATELET COUNT 58 K/MM3 (134-434)
[2016-10-20 14:09] LABS: MCH 27.2 pg (25.7-33.7); MCHC 33.1 g/dl (32.0-36.0); MEAN CELL VOLUME 82.1 fl (80-96); MEAN PLT VOLUME 12.8 fl (7.5-11.1); RDW 12.8 % (11.6-15.6); WHITE BLOOD COUNT 16.3 K/mm3 (4.0-10.0)
--- NOTE | 2016-10-20 14:14 | PN ---
Teaching Attending Note Name of Resident: Fidle Gordon ATTENDING PHYSICIAN STATEMENT I saw and evaluated the patient. I reviewed the resident's note and discussed the case with the resident. I agree with the resident's findings and plan as documented. SUBJECTIVE:continues to have L flank pain but improved. c/o generalized fatigue. mildly nauseated but no longer vomiting. denies CP, SOB, fever, chills , V/C/D. states she thinks her menses started as having some spotting and is due in the next few days OBJECTIVE: Last Vital Signs Temp Pulse Resp BP Pulse Ox 99.6 F 103 H 20 117/78 98 10/20/16 10:00 10/20/16 10:00 10/20/16 10:00 10/20/16 10:00 10/19/16 22:00 General NAD, lethargic CV S1 S2 tachy Lungs CTA B/L no wheezing/rales/rhonchi Abdomen L CVA tenderness and suprapubic tenderness. no rebound or guarding ASSESSMENT AND PLAN: 31 yo F wtih PMH DM presented to the ER with fever and L flank pain 1. Sepsis due to pyelonephritis- Tm101.2. Renal u/s negative for acute pathology but clinically displays signs of pylonephritis. increase ceftriaxone to 2g. day1. Ucx obtained yesterday on initial visit to ED. f/u that and blood culture. cont IVF. pain and nausea control 2. Acute normocytic anemia- likley dilutional component vs onset of menses. Upreg negative. repeat CBC to monitor Hgb. no indication for transfusion 3. IKE- liklely sepsis. IVF. avoid nephrotoxic agents. renal u/s negative. call PMD for baseline Cr 4. Hyperkalemia- resolved 5. DM- uncontrolled. A1c 8.7. pt reports this is improved from 3 months ago where it was >10. re-start insulin sliding scale which pt uses at home. hold oral hypoglycemics. cont lantus 6. DVT ppx- will start heparin if hgb remains stable
[2016-10-20] MEDS: CEFTRIAXONE 1 GM in SODIUM CHLORIDE 50 ML IVPB SCH ×2 (14:27→14:36)
[2016-10-20] MEDS: oxyCODONE HCL 5 MG TABLET PO PRN ×2 (14:30→21:11)
--- NOTE | 2016-10-20 15:32 | PN ---
Physical Exam: SUBJECTIVE: Patient seen and examined at bedside. Patient states that her pain is mildly improved today, 10/10 to 8/10. She also complains of dizziness and vomiting which has gotten better as well. She was able to tolerate eating a sandwich today. OBJECTIVE: Vital Signs Period Temp Pulse Resp BP Sys/Cat Pulse Ox Last 24 Hr 97.7 F-101.2 F 80-118 18-20 110-127/62-80 98-99 GENERAL: The patient is awake, alert, and fully oriented, in no acute distress. HEAD: Normal with no signs of trauma. EYES: extraocular movements intact, sclera anicteric, conjunctiva clear. No ptosis. NECK: Trachea midline, full range of motion, supple. LUNGS: Breath sounds equal, clear to auscultation bilaterally, no wheezes, no crackles, no accessory muscle use. HEART: Regular rate and rhythm, S1, S2 without murmur, rub or gallop. ABDOMEN: Soft, mild tenderness to palpation in the suprapubic area, nondistended , normoactive bowel sounds, no guarding, no rebound. Pain on palpation of left flank. EXTREMITIES: 2+ pulses, warm, well-perfused, no edema. NEUROLOGICAL: Cranial nerves II through X grossly intact. Normal speech, gait not observed. PSYCH: Normal mood, normal affect. SKIN: Warm, dry, normal turgor, no rashes or lesions noted Laboratory Results - last 24 hr 10/19/16 10/19/16 10/20/16 20:44 20:50 02:02 WBC RBC Hgb Hct MCV MCH MCHC RDW Plt Count MPV Platelet Estimate Platelet Comment Sodium Potassium Chloride Carbon Dioxide Anion Gap BUN Creatinine POC Glucometer [phone] Random Glucose Lactic Acid Calcium Urine Color Ltyellow Urine Appearance Slcloudy Urine pH 5.0 Ur Specific [place] 1.010 Urine Protein Negative Urine Glucose (UA) 3+ H Urine Ketones 1+ H Urine Blood 2+ H Urine Nitrite Negative Urine Bilirubin Negative Urine Urobilinogen Negative Ur Leukocyte Esterase 1+ H Urine RBC 7 Urine WBC 106 Ur Epithelial Cells Rare Hyaline Casts 3 Urine Mucus Rare Urine HCG, Qual Negative 10/20/16 10/20/16 10/20/16 06:00 06:00 06:00 WBC 16.0 H RBC 2.94 L D Hgb 8.1 L D Hct 24.3 L D MCV 82.8 MCH 27.4 MCHC 33.1 RDW 12.7 Plt Count 63 L D MPV 13.0 H Platelet Estimate Decreased Platelet Comment No clotting detected Sodium 139 Potassium 4.4 Chloride 105 Carbon Dioxide 25 Anion Gap 9 BUN 25 H Creatinine 1.2 H POC Glucometer Random Glucose 234 H D Lactic Acid 1.2 Calcium 7.7 L Urine Color Urine Appearance Urine pH Ur Specific [place] Urine Protein Urine Glucose (UA) Urine Ketones Urine Blood Urine Nitrite Urine Bilirubin Urine Urobilinogen Ur Leukocyte Esterase Urine RBC Urine WBC Ur Epithelial Cells Hyaline Casts Urine Mucus Urine HCG, Qual 10/20/16 10/20/16 10/20/16 06:09 11:38 13:40 WBC 16.3 H RBC 2.87 L Hgb 7.8 L Hct 23.6 L MCV 82.1 MCH 27.2 MCHC 33.1 RDW 12.8 Plt Count 58 L MPV 12.8 H Platelet Estimate Platelet Comment Sodium Potassium Chloride Carbon Dioxide Anion Gap BUN Creatinine POC Glucometer 274 285 Random Glucose Lactic Acid Calcium Urine Color Urine Appearance Urine pH Ur Specific [place] Urine Protein Urine Glucose (UA) Urine Ketones Urine Blood Urine Nitrite Urine Bilirubin Urine Urobilinogen Ur Leukocyte Esterase Urine RBC Urine WBC Ur Epithelial Cells Hyaline Casts Urine Mucus Urine HCG, Qual 10/20/16 14:34 WBC RBC Hgb Hct MCV MCH MCHC RDW Plt Count MPV Platelet Estimate Platelet Comment Sodium Potassium Chloride Carbon Dioxide Anion Gap BUN Creatinine POC Glucometer 194 Random Glucose Lactic Acid Calcium Urine Color Urine Appearance Urine pH Ur Specific [place] Urine Protein Urine Glucose (UA) Urine Ketones Urine Blood Urine Nitrite Urine Bilirubin Urine Urobilinogen Ur Leukocyte Esterase Urine RBC Urine WBC Ur Epithelial Cells Hyaline Casts Urine Mucus Urine HCG, Qual Active Medications Generic Name Dose Route Start Last Admin Trade Name Freq PRN Reason Stop Dose Admin Acetaminophen 325 mg 10/20/16 13:21 10/20/16 14:31 Tylenol - PO 325 mg Q6H PRN Administration FEVER OR PAIN Gabapentin 300 mg 10/19/16 22:00 10/20/16 14:26 Neurontin - PO 300 mg TID MONSERRAT Administration Sodium Chloride 1,000 mls @ 75 mls/hr 10/19/16 20:48 10/19/16 20:57 Normal Saline - IV 75 mls/hr ASDIR MONSERRAT Administration Ceftriaxone Sodium 2 gm/ 100 mls @ 200 mls/hr 10/21/16 10:00 Dextrose IVPB DAILY MONSERRAT Insulin Aspart 8 units 10/20/16 07:00 10/20/16 11:40 Novolog Vial SQ 8 units TIDAC MONSERRAT Administration Insulin Aspart 1 vial 10/20/16 02:00 10/20/16 14:36 Novolog Vial Sliding Scale - SQ 2 units Q4HPO MONSERRAT Administration Protocol Insulin Detemir 30 units 10/19/16 22:00 10/19/16 23:12 Levemir Vial SQ 30 units HS MONSERRAT Administration Lisinopril 2.5 mg 10/20/16 10:00 10/20/16 11:06 Prinivil PO 2.5 mg DAILY MONSERRAT Administration Loratadine 10 mg 10/20/16 10:00 10/20/16 11:06 Claritin - PO 10 mg DAILY MONSERRAT Administration Metoclopramide HCl 10 mg 10/20/16 13:17 Reglan - PO Q6H PRN NAUSEA AND/OR VOMITING Montelukast Sodium 10 mg 10/20/16 22:00 Singulair - PO HS MONSERRAT Oxycodone HCl 5 mg 10/20/16 13:20 10/20/16 14:30 Roxicodone - PO 5 mg Q6H PRN Administration PAIN ASSESSMENT/PLAN: Pt is a 31yo F w/ PMHx of DM2, multiple UTIs who presented with L flank pain, fevers, high WBC, admitted for pyelonephritis # Sepsis 2/2 Pyelonephritis - leuk, tachy, source urine - Ceftriaxone 1g daily today, changing to 2g daily starting tomorrow - IVNS @ 75cc/hr - Renal U/S unremarkable -CT abd pelvis shows prominent spleen, fecal retention - Blood + Urine Cx pending - Lactic acid 1.2 today - Pain control w/ percocet 5/325 Q6H - Zofran 4mg IV for Nausea Changed to reglan 10mg PO PRN nausea - CBC in AM #Anemia -admission Hb 10.4, today 8.1; repeat 7.8. -repeat this PM -transfuse as per protocol. -reached out to primary to establish baseline # IKE likely 2/2 sepsis vs vomiting - B/L Cr is 0.9-1.0 - Likely pre-renal azotemia from vomiting - IVNS @ 75cc/hr - Cr today is 1.2; will trend # HyperKalemia- resolved - f/u EKG - Continue insulin - BMP in AM # Diabetes Mellitus - insulin dependent - Continue Lantus + Humalog if patient can tolerate food - Continue ISS - Hold Metformin for IKE - Continue Lisinopril # Diabetic Neuropathy - Continue Gabapentin - Pt also takes home Naproxen for neuropathic pain, held due to IKE # Thrombocytopenia - likely chronic - No acute bleeds - Continue to monitor # Hx of Allergies - Continue Claritin and Singulair - No hx of Asthma # FEN - Fluids: IVF @ 75cc/hr - Electrolytes: Monitor potassium - Nutrition: Diabetic diet # Prophylaxis - DVT: B/L SCDs - GI: None indicated - Deconditioning: PT ordered, pt uses cane at home # Dispo - Admit to Med/Surg - F/u UCx and Renal U/S Problem List - Problems (1) Insulin dependent diabetes mellitus Code(s): E11.9 - TYPE 2 DIABETES MELLITUS WITHOUT COMPLICATIONS Z79.4 - DATA WAREHOUSE ANALYST (CURRENT) USE OF INSULIN (2) Pyelonephritis Code(s): N12 - TUBULO-INTERSTITIAL NEPHRITIS, NOT SPCF ACUTE OR CHRONIC (3) Vomiting Code(s): R11.10 - VOMITING, UNSPECIFIED Qualifiers: Vomiting type: unspecified Vomiting Intractability: intractable Nausea presence: with nausea Qualified Code(s): R11.2 - Nausea with vomiting , unspecified (4) UTI (urinary tract infection) Code(s): N39.0 - URINARY TRACT INFECTION, SITE NOT SPECIFIED Qualifiers: Urinary tract infection type: site unspecified Hematuria presence: with hematuria Qualified Code(s): N39.0 - Urinary tract infection, site not specified; R31.9 - Hematuria, unspecified Visit type - Emergency Visit Emergency Visit: Yes ED Registration Date: 10/19/16 Care time: The patient presented to the Emergency Department on the above date and was hospitalized for further evaluation of their emergent condition. - New Patient This patient is new to me today: Yes Date on this admission: 10/20/16 - Critical Care Critical Care patient: No
--- NOTE | 2016-10-20 17:43 | EKG ---
Test Reason : Blood Pressure : / mmHG Vent. Rate : 105 BPM Atrial Rate : 105 BPM P-R Int : 122 ms QRS Dur : 072 ms QT Int : 350 ms P-R-T Axes : 032 026 021 degrees QTc Int : 462 ms SINUS TACHYCARDIA WITH OCCASIONAL PREMATURE VENTRICULAR COMPLEXES OTHERWISE NORMAL ECG WHEN COMPARED WITH ECG OF 19-OCT-2016 03:18, PREMATURE VENTRICULAR COMPLEXES ARE NOW PRESENT CLINICAL CORRELATION IS RECOMMENDED Confirmed by ALLISON SARGENT MD ([id number] on 10/20/2016 5:42:48 PM Referred By: Confirmed By:ALLISON SARGENT MD
[2016-10-20] MEDS: SODIUM CHLORIDE 1,000 ML IV SCH (20:04)
[2016-10-20] MEDS: INSULIN DETEMIR 100 UNITS/ML MDV SQ SCH (21:09)
[2016-10-20] MEDS ORDERED: INSULIN (NOVOLOG) ASPART 100 UNITS/ML 10ML VIAL ONE (21:10)
[2016-10-20] MEDS: MONTELUKAST NA 10 MG TABLET PO SCH (21:11)
[2016-10-20 22:26] LABS: MCH 27.6 pg (25.7-33.7); MEAN CELL VOLUME 83.5 fl (80-96); MEAN PLT VOLUME 12.7 fl (7.5-11.1); PLATELET COUNT 60 K/MM3 (134-434)
[2016-10-21] MEDS ORDERED: DEXTROSE 50%-WATER 25 GM/50 ML DISP.SYRIN ONE (00:31)
[2016-10-21] MEDS ORDERED: INSULIN (NOVOLOG) ASPART 100 UNITS/ML 10ML VIAL ONE (06:40)
[2016-10-21] MEDS: INSULIN (NOVOLOG) ASPART 100 UNITS/ML 10ML VIAL SQ SCH ×3 (06:41→17:11)
[2016-10-21] MEDS: INSULIN SLIDING SCALE (NOVOLOG) 1 VIAL SQ SCH ×4 (06:41→21:06)
[2016-10-21] MEDS: GABAPENTIN 300 MG CAPSULE (FP) PO SCH ×3 (06:41→21:05)
[2016-10-21 09:02] LABS: MCH 29.4 pg (25.7-33.7); MCHC 32.7 g/dl (32.0-36.0); MEAN PLT VOLUME 8.6 fl (7.5-11.1); PLATELET COUNT 172 K/MM3 (134-434); RDW 14.4 % (11.6-15.6); WHITE BLOOD COUNT 11.6 K/mm3 (4.0-10.0)
[2016-10-21 09:46] LABS: ALBUMIN 2.7 g/dl (3.4-5.0); ALK PHOS 63 U/L (45-117); ANION GAP 7 (8-16); BILIRUBIN,TOTAL 0.4 mg/dL (0.2-1.0); CALCIUM 8.5 mg/dL (8.5-10.1); CO2 33 mmol/L (21-32); CREATININE 0.9 mg/dL (0.55-1.02); GLUCOSE,RANDOM 107 mg/dL (74-106); SGOT/AST 24 U/L (15-37); SGPT/ALT 22 U/L (12-78); TOT PROT 5.6 g/dl (6.4-8.2)
[2016-10-21] MEDS ORDERED: DEXTROSE 5%-WATER 100 ML IVPB ONE (09:51)
[2016-10-21] MEDS: LORATADINE 10 MG TABLET PO SCH (09:59)
[2016-10-21] MEDS: LISINOPRIL 5 MG TABLET (FP) PO SCH (09:59)
[2016-10-21] MEDS: CEFTRIAXONE 2 GM in DEXTROSE 5%-WATER 100 ML IVPB SCH (09:59)
[2016-10-21] MEDS: ACETAMINOPHEN 325 MG TABLET (FP) PO PRN (11:35)
[2016-10-21] MEDS: SODIUM CHLORIDE 1,000 ML IV STA ×2 (13:08→20:59)
[2016-10-21] MEDS ORDERED: LORATADINE 10 MG TABLET PO PRN (13:10)
[2016-10-21] MEDS ORDERED: ALBUTEROL SO4 0.083% IH SOL 2.5 MG/3 ML VIAL.NEB. NEB ONE (14:15)
--- NOTE | 2016-10-21 14:51 | PN ---
Physical Exam: SUBJECTIVE: Patient seen and examined at bedside. Patient states that her flank pain is improved. She continues to complain of dizziness and nausea, but had no vomiting episodes overnight. Patient continues to tolerate PO. She now complains of fullness in her ears. Both nurse and note lethargy over the past 2 days. Patient spiked fever to 101.4 overnight. OBJECTIVE: Vital Signs Period Temp Pulse Resp BP Sys/Cat Pulse Ox Last 24 Hr 99.9 F-101.6 F 95-111 18-19 94-139/64-90 96 GENERAL: The patient is awake, alert, and fully oriented, in no acute distress. Lethargic today. HEAD: Normal with no signs of trauma. EYES: extraocular movements intact, sclera anicteric, conjunctiva clear. No ptosis. ENT: Ears normal, nares patent, oropharynx clear without exudates, moist mucous membranes. NECK: Trachea midline, full range of motion, supple. LUNGS: Breath sounds equal, clear to auscultation bilaterally, no wheezes, no crackles, no accessory muscle use. HEART: Regular rate and rhythm, S1, S2 without murmur, rub or gallop. ABDOMEN: Soft, nontender, nondistended, normoactive bowel sounds, no guarding, no rebound. EXTREMITIES: 2+ pulses, warm, well-perfused, no edema. NEUROLOGICAL: Cranial nerves II through X grossly intact. Normal speech, gait not observed. PSYCH: Normal mood, normal affect. SKIN: Warm, dry, normal turgor, no rashes or lesions noted Laboratory Results - last 24 hr 10/20/16 10/20/16 10/20/16 14:34 17:17 21:04 WBC RBC Hgb Hct MCV MCH MCHC RDW Plt Count MPV Sodium Potassium Chloride Carbon Dioxide Anion Gap BUN Creatinine Creat Clearance w eGFR POC Glucometer 194 210 188 Random Glucose Calcium Total Bilirubin AST ALT Alkaline Phosphatase Total Protein Albumin 10/20/16 10/21/16 10/21/16 22:00 00:32 05:53 WBC 16.0 H RBC 3.02 L Hgb 8.4 L Hct 25.3 L MCV 83.5 MCH 27.6 MCHC 33.0 RDW 13.0 Plt Count 60 L MPV 12.7 H Sodium Potassium Chloride Carbon Dioxide Anion Gap BUN Creatinine Creat Clearance w eGFR POC Glucometer 213 202 Random Glucose Calcium Total Bilirubin AST ALT Alkaline Phosphatase Total Protein Albumin 10/21/16 10/21/16 10/21/16 08:00 08:00 11:11 WBC 11.6 H RBC 4.04 D Hgb 11.9 D Hct 36.4 D MCV 90.0 MCH 29.4 MCHC 32.7 RDW 14.4 D Plt Count 172 D MPV 8.6 D Sodium 139 Potassium 4.5 Chloride 99 Carbon Dioxide 33 H D Anion Gap 7 L BUN 20 H Creatinine 0.9 D Creat Clearance w eGFR > 60 POC Glucometer 257 Random Glucose 107 H D Calcium 8.5 Total Bilirubin 0.4 D AST 24 D ALT 22 D Alkaline Phosphatase 63 D Total Protein 5.6 L D Albumin 2.7 L D Active Medications Generic Name Dose Route Start Last Admin Trade Name Freq PRN Reason Stop Dose Admin Acetaminophen 325 mg 10/20/16 13:21 10/21/16 11:35 Tylenol - PO 325 mg Q6H PRN Administration FEVER OR PAIN Gabapentin 300 mg 10/19/16 22:00 10/21/16 14:13 Neurontin - PO 300 mg TID MONSERRAT Administration Sodium Chloride 1,000 mls @ 75 mls/hr 10/19/16 20:48 10/20/16 20:04 Normal Saline - IV 75 mls/hr ASDIR MONSERRAT Administration Ceftriaxone Sodium 2 gm/ 100 mls @ 200 mls/hr 10/21/16 10:00 10/21/16 09:59 Dextrose IVPB 200 mls/hr DAILY MONSERRAT Administration Insulin Aspart 8 units 10/20/16 07:00 10/21/16 11:36 Novolog Vial SQ 8 units TIDAC MONSERRAT Administration Insulin Aspart 1 vial 10/20/16 22:00 10/21/16 11:38 Novolog Vial Sliding Scale - SQ 6 units ACHS MONSERRAT Administration Protocol Insulin Detemir 30 units 10/19/16 22:00 10/20/16 21:09 Levemir Vial SQ 30 units HS MONSERRAT Administration Lisinopril 2.5 mg 10/20/16 10:00 10/21/16 09:59 Prinivil PO 2.5 mg DAILY MONSERRAT Administration Loratadine 10 mg 10/21/16 13:10 Claritin - PO HS PRN NASAL CONGESTION Metoclopramide HCl 10 mg 10/20/16 13:17 Reglan - PO Q6H PRN NAUSEA AND/OR VOMITING Montelukast Sodium 10 mg 10/20/16 22:00 10/20/16 21:11 Singulair - PO 10 mg HS MONSERRAT Administration Oxycodone HCl 5 mg 10/20/16 13:20 10/20/16 21:11 Roxicodone - PO 5 mg Q6H PRN Administration PAIN ASSESSMENT/PLAN: Pt is a 31yo F w/ PMHx of DM2, multiple UTIs who presented with L flank pain, fevers, high WBC, admitted for pyelonephritis # Sepsis 2/2 Pyelonephritis - Ceftriaxone 2g daily - fever to 101.4 overnight - IVNS @ 75cc/hr - Renal U/S unremarkable -CT abd pelvis shows prominent spleen, fecal retention - Blood culute negative to date -urine culture growing Raoultella orthinolytica sensitive to ceftriaxone - Lactic acid 1.2 today - Pain control w/ percocet 5/325 Q6H - reglan 10mg PO PRN nausea # dizziness, fullness in ears, lethargy likely 2/2 dehydration vs antihistamines -scheduled loratidine switched to QHS PRN -1L fluid bolus -monitor closely -otoscope examination negative #Anemia - resolved -Hb 8.4 yesterday. 11.9 today -continue to monitor -transfuse as per protocol. -reached out to primary to establish baseline # IKE likely 2/2 sepsis vs vomiting- resolved - B/L Cr is 0.9-1.0 - IVNS @ 75cc/hr - Cr today is .9 -monitor # HyperKalemia- resolved - Continue insulin -monitor # Diabetes Mellitus - insulin dependent - Continue Lantus + Humalog if patient can tolerate food - Continue ISS - Hold Metformin for IKE - Continue Lisinopril # Diabetic Neuropathy - Continue Gabapentin - Pt also takes home Naproxen for neuropathic pain, held due to IKE # Thrombocytopenia - resolved - No acute bleeds - Continue to monitor -platelets 172 today # Hx of Allergies - Continue Claritin and Singulair - No hx of Asthma # FEN - Fluids: IVF @ 75cc/hr - Monitor Electrolytes - Nutrition: Diabetic diet # Prophylaxis - DVT: B/L SCDs - GI: None indicated - Deconditioning: PT ordered, pt uses cane at home # Dispo - Admitted for management secondary to pyelonephritis; possible DC home tomorrow if patient remains stable. Problem List - Problems (1) Insulin dependent diabetes mellitus Code(s): E11.9 - TYPE 2 DIABETES MELLITUS WITHOUT COMPLICATIONS Z79.4 - INTERMEDIATE (CURRENT) USE OF INSULIN (2) Pyelonephritis Code(s): N12 - TUBULO-INTERSTITIAL NEPHRITIS, NOT SPCF ACUTE OR CHRONIC (3) Vomiting Code(s): R11.10 - VOMITING, UNSPECIFIED Qualifiers: Vomiting type: unspecified Vomiting Intractability: intractable Nausea presence: with nausea Qualified Code(s): R11.2 - Nausea with vomiting , unspecified (4) UTI (urinary tract infection) Code(s): N39.0 - URINARY TRACT INFECTION, SITE NOT SPECIFIED Qualifiers: Urinary tract infection type: site unspecified Hematuria presence: with hematuria Qualified Code(s): N39.0 - Urinary tract infection, site not specified; R31.9 - Hematuria, unspecified Visit type - Emergency Visit Emergency Visit: Yes ED Registration Date: 10/19/16 Care time: The patient presented to the Emergency Department on the above date and was hospitalized for further evaluation of their emergent condition. - New Patient This patient is new to me today: No - Critical Care Critical Care patient: No
--- NOTE | 2016-10-21 17:03 | PN ---
Teaching Attending Note Name of Resident: Fidel Gordon ATTENDING PHYSICIAN STATEMENT I saw and evaluated the patient. I reviewed the resident's note and discussed the case with the resident. I agree with the resident's findings and plan as documented. SUBJECTIVE:c/o generalized weakness and lethargy. has intermittent abdominal pains but improved since admission. has intermittent dizzyness and L ear fullness. no tinnitus or blurred vision. denies Cp, SOB, chills, N/V/C/D, dysuria or hematuria. tolerating diet OBJECTIVE: Last Vital Signs Temp Pulse Resp BP Pulse Ox 99.8 F H 112 H 18 121/75 96 10/21/16 15:37 10/21/16 15:37 10/20/16 20:56 10/21/16 15:37 10/20/16 20:07 General NAD, HEENT no frontal or maxillary sinus tenderness no pain on manipulation of the tragus or external auricle of L ear CV S1 S2 tachy Lungs CTA B/L no wheezing/rales/rhonchi Abdomen soft NT/ND no rebound or guarding ASSESSMENT AND PLAN: 31 yo F wtih PMH DM presented to the ER with fever and L flank pain 1. Sepsis due to pyelonephritis- Tm101.4. leukocytosis improving. will bolus 1L NS. UCx with pending organism. cont Ceftriaxons day 2. pain and nausea control 2. L ear fullness- . no sinus tenderness. no pain on ear manipulationwill re- assess with otoscope 2. Acute normocytic anemia- likley dilutional component vs onset of menses. Hgb has been stable. no signs of bleeding. no indication for transfusion 3. IKE- liklely sepsis. IVF. avoid nephrotoxic agents. renal u/s negative. call PMD for baseline Cr 4. Hyperkalemia- resolved 5. DM-A1c 8.7. improved here. cont diabetic diet. iss, levemir. 6. DVT ppx- will start heparin tomorrow if hgb remains stable, EAM, SCD
[2016-10-21] MEDS: INSULIN DETEMIR 100 UNITS/ML MDV SQ SCH (21:05)
[2016-10-21] MEDS: MONTELUKAST NA 10 MG TABLET PO SCH ×2 (21:06→21:09)
[2016-10-21] MEDS: SODIUM CHLORIDE 1,000 ML IV SCH (22:38)
[2016-10-22] MEDS ORDERED: ACETAMINOPHEN 325 MG TABLET (FP) PO ONE ×2 (01:06→21:41)
[2016-10-22] MEDS: INSULIN (NOVOLOG) ASPART 100 UNITS/ML 10ML VIAL SQ SCH ×3 (06:09→16:45)
[2016-10-22] MEDS: INSULIN SLIDING SCALE (NOVOLOG) 1 VIAL SQ SCH ×4 (06:10→21:57)
[2016-10-22] MEDS: GABAPENTIN 300 MG CAPSULE (FP) PO SCH ×3 (06:10→13:19)
[2016-10-22 07:25] LABS: MCH 27.9 pg (25.7-33.7); MCHC 33.6 g/dl (32.0-36.0); MEAN CELL VOLUME 83.1 fl (80-96); MEAN PLT VOLUME 13.6 fl (7.5-11.1); PLATELET COUNT 65 K/MM3 (134-434); WHITE BLOOD COUNT 8.2 K/mm3 (4.0-10.0)
[2016-10-22 07:54] LABS: ANION GAP 9 (8-16); CO2 25 mmol/L (21-32); GLUCOSE,RANDOM 242 mg/dL (74-106)
[2016-10-22 07:57] LABS: CREATININE 1.2 mg/dL (0.55-1.02)
[2016-10-22] MEDS ORDERED: DEXTROSE 5%-WATER 100 ML IVPB ONE (09:42)
[2016-10-22 09:54] LABS: FERRITIN 245.15 ng/ml (6.9-282.5)
[2016-10-22] MEDS: CEFTRIAXONE 2 GM in DEXTROSE 5%-WATER 100 ML IVPB SCH (10:45)
[2016-10-22] MEDS: LISINOPRIL 5 MG TABLET (FP) PO SCH (10:45)
[2016-10-22] MEDS ORDERED: ACETAMINOPHEN 1000 MG/100 ML VIAL (NON FORMULARY) IVPB ONE (12:40)
[2016-10-22 13:44] LABS: MCH 27.6 pg (25.7-33.7); MCHC 33.6 g/dl (32.0-36.0); MEAN CELL VOLUME 82.2 fl (80-96); MEAN PLT VOLUME 12.6 fl (7.5-11.1); PLATELET COUNT 68 K/MM3 (134-434); RDW 13.3 % (11.6-15.6); WHITE BLOOD COUNT 9.2 K/mm3 (4.0-10.0)
--- NOTE | 2016-10-22 15:00 | PN ---
Teaching Attending Note Name of Resident: Fidel Gordon ATTENDING PHYSICIAN STATEMENT I saw and evaluated the patient. I reviewed the resident's note and discussed the case with the resident. I agree with the resident's findings and plan as documented. SUBJECTIVE:continues to feel generalized weakness but overall improved. states flank pain has resolved. having intermittent vaginal bleeding part of her menses which she states has been irregular for some time and has appt with [facility] next week. never received blood transfusion in the past. denies CP, SOB, fever, chills, N/V/C/D OBJECTIVE: Last Vital Signs Temp Pulse Resp BP Pulse Ox 98.6 F 112 H 20 135/77 96 10/22/16 13:53 10/22/16 13:53 10/22/16 13:53 10/22/16 13:53 10/20/16 20:07 General NAD, CV S1 S2 tachy Lungs CTA B/L no wheezing/rales/rhonchi Abdomen soft NT/ND no rebound or guarding ASSESSMENT AND PLAN: 31 yo F wtih PMH DM presented to the ER with fever and L flank pain 1. Sepsis due to pyelonephritis- Tm103.3. clinically looks improved. leukocytosis resolved. Ucx with raoultella orthinolytica which is leonard- sensitive. will f/u renal u/x to r/o developing abscess. cont ceftriaxone day 3. will consider broader abx if continues to spike. pain and nausea control 2. L ear fullness- otoscope exam yesterday benign. cont to have will consider CT head and sinuses to further evaluate if continues to have fevers. 3. Acute normocytic anemia- likley dilutional component vs onset of menses. acute drop. on repeat is stable. will hold transfusion at this time. cont to trend Hgb Q8H. txn for Hgb <7. no indication for transfusion. iron studies pending 4. IKE- liklely sepsis. resolved. avoid nephrotoxic agents. 5. Hyperkalemia- resolved 6. DM-A1c 8.7. above goal. increase levemir to levemir 35units at night. monitor closely. cont diabetic diet. iss, levemir. 7. DVT ppx- EAM, SCD 8. case d/w pt and fiance at bedside. agreed with plan. verbalized understanding
--- NOTE | 2016-10-22 15:57 | PN ---
Physical Exam: SUBJECTIVE: Patient seen and examined at bedside. She seems less lethargic today , but still complains of intermittent headaches and a sensation of fullness in the ears. Patient's flank pain is mildly improved. Patient complaining of shortness of breath overnight requiring 2L NC oxygen. OBJECTIVE: Vital Signs Period Temp Pulse Resp BP Sys/Cat Pulse Ox Last 24 Hr 98.2 F-103.3 F 97-116 18-20 107-135/70-91 GENERAL: The patient is awake, alert, and fully oriented, in no acute distress. HEAD: Normal with no signs of trauma. EYES: extraocular movements intact, sclera anicteric, conjunctiva clear. No ptosis. NECK: Trachea midline, full range of motion, supple. LUNGS: Breath sounds equal, clear to auscultation bilaterally, no wheezes, no crackles, no accessory muscle use. HEART: Regular rate and rhythm, S1, S2 without murmur, rub or gallop. ABDOMEN: Soft, nontender, nondistended, normoactive bowel sounds, no guarding, no rebound. EXTREMITIES: 2+ pulses, warm, well-perfused, no edema. NEUROLOGICAL: Cranial nerves II through X grossly intact. Normal speech, gait not observed. Strength 5/5 in all 4 limbs. sensation intact. PSYCH: Normal mood, normal affect. SKIN: Warm, dry, normal turgor, no rashes or lesions noted Laboratory Results - last 24 hr 10/21/16 10/21/16 10/21/16 08:00 08:00 17:09 WBC 11.6 H RBC 4.04 D Hgb 11.9 D Hct 36.4 D MCV 90.0 MCH 29.4 MCHC 32.7 RDW 14.4 D Plt Count 172 D MPV 8.6 D Differential Comment Sodium 139 Potassium 4.5 Chloride 99 Carbon Dioxide 33 H D Anion Gap 7 L BUN 20 H Creatinine 0.9 D Creat Clearance w eGFR > 60 POC Glucometer 292 Random Glucose 107 H D Calcium 8.5 Ferritin Total Bilirubin 0.4 D AST 24 D ALT 22 D Alkaline Phosphatase 63 D Total Protein 5.6 L D Albumin 2.7 L D Vitamin B12 10/21/16 10/22/16 10/22/16 21:05 06:09 06:30 WBC 8.2 RBC 2.52 L D Hgb 7.0 L D Hct 21.0 L D MCV 83.1 MCH 27.9 MCHC 33.6 RDW 13.0 Plt Count 65 L D MPV 13.6 H D Differential Comment Sodium Potassium Chloride Carbon Dioxide Anion Gap BUN Creatinine Creat Clearance w eGFR POC Glucometer 223 263 Random Glucose Calcium Ferritin Total Bilirubin AST ALT Alkaline Phosphatase Total Protein Albumin Vitamin B12 10/22/16 10/22/16 10/22/16 06:30 06:30 11:24 WBC RBC Hgb Hct MCV MCH MCHC RDW Plt Count MPV Differential Comment Sodium 134 L Potassium 4.2 Chloride 100 Carbon Dioxide 25 D Anion Gap 9 BUN 25 H D Creatinine 1.2 H D Creat Clearance w eGFR POC Glucometer 143 Random Glucose 242 H D Calcium 8.0 L Ferritin 245.150 Total Bilirubin AST ALT Alkaline Phosphatase Total Protein Albumin Vitamin B12 431 10/22/16 13:30 WBC 9.2 RBC 2.58 L Hgb 7.1 L Hct 21.2 L MCV 82.2 MCH 27.6 MCHC 33.6 RDW 13.3 Plt Count 68 L MPV 12.6 H Differential Comment Sodium Potassium Chloride Carbon Dioxide Anion Gap BUN Creatinine Creat Clearance w eGFR POC Glucometer Random Glucose Calcium Ferritin Total Bilirubin AST ALT Alkaline Phosphatase Total Protein Albumin Vitamin B12 Active Medications Generic Name Dose Route Start Last Admin Trade Name Freq PRN Reason Stop Dose Admin Acetaminophen 325 mg 10/20/16 13:21 10/21/16 11:35 Tylenol - PO 325 mg Q6H PRN Administration FEVER OR PAIN Gabapentin 300 mg 10/19/16 22:00 10/22/16 13:19 Neurontin - PO Not Given TID [facility] Ceftriaxone Sodium 2 gm/ 100 mls @ 200 mls/hr 10/21/16 10:00 10/22/16 10:45 Dextrose IVPB 200 mls/hr DAILY [facility] Administration Insulin Aspart 8 units 10/20/16 07:00 10/22/16 11:29 Novolog Vial SQ Not Given TIDAC [facility] Insulin Aspart 1 vial 10/20/16 22:00 10/22/16 11:27 Novolog Vial Sliding Scale - SQ Not Given ACHS [facility] Protocol Insulin Detemir 35 units 10/22/16 22:00 Levemir Vial SQ HS [facility] Lisinopril 2.5 mg 10/20/16 10:00 10/22/16 10:45 Prinivil PO 2.5 mg DAILY [facility] Administration Loratadine 10 mg 10/21/16 13:10 Claritin - PO HS PRN NASAL CONGESTION Metoclopramide HCl 10 mg 10/20/16 13:17 Reglan - PO Q6H PRN NAUSEA AND/OR VOMITING Montelukast Sodium 10 mg 10/20/16 22:00 10/21/16 21:09 Singulair - PO Not Given HS [facility] Oxycodone HCl 5 mg 10/20/16 13:20 10/20/16 21:11 Roxicodone - PO 5 mg Q6H PRN Administration PAIN ASSESSMENT/PLAN: Pt is a 31yo F w/ PMHx of DM2, multiple UTIs who presented with L flank pain, fevers, high WBC, admitted for pyelonephritis # Sepsis 2/2 Pyelonephritis - Ceftriaxone 2g daily - fever to 103.3 overnight; blood and urine cultures redrawn - IVNS @ 75cc/hr - repeating renal ultrasound to rule out perinephric abscess, f/u results -CT abd pelvis shows prominent spleen, fecal retention - Blood culture negative to date -urine culture growing Raoultella orthinolytica sensitive to ceftriaxone - Pain control w/ percocet 5/325 Q6H - reglan 10mg PO PRN nausea # dizziness, fullness in ears, lethargy likely 2/2 dehydration vs antihistamines -d/c'd loratidine -monitor closely -otoscope examination negative -patient refusing neurontin; less lethargic off medications #Anemia -Hb 7.0 today, rpt 7.1. -Will repeat this PM. It is thought that the patient's dizziness and headaches are 2/2 to her sepsis -was notified by nurse that the lab results from yesterday's labs were from a different patient -continue to monitor -transfuse if patient's h&h falls below 7 -reached out to primary to establish baseline # IKE likely 2/2 sepsis vs vomiting- resolved - B/L Cr is 0.9-1.0 - IVNS @ 75cc/hr - Cr today is .9 -monitor # HyperKalemia- resolved - Continue insulin -monitor # Diabetes Mellitus - insulin dependent - Continue Lantus + Humalog if patient can tolerate food - Continue ISS - Hold Metformin for IKE - Continue Lisinopril # Diabetic Neuropathy - Continue Gabapentin - Pt also takes home Naproxen for neuropathic pain, held due to IKE # Thrombocytopenia - resolved - No acute bleeds - Continue to monitor -platelets 172 today # Hx of Allergies - Continue Claritin and Singulair - No hx of Asthma # FEN - Fluids: IVF @ 75cc/hr - Monitor Electrolytes - Nutrition: Diabetic diet # Prophylaxis - DVT: B/L SCDs - GI: None indicated - Deconditioning: PT ordered, pt uses cane at home # Dispo - Admitted for management secondary to pyelonephritis; possible DC home tomorrow if patient remains stable. Problem List - Problems (1) Insulin dependent diabetes mellitus Code(s): E11.9 - TYPE 2 DIABETES MELLITUS WITHOUT COMPLICATIONS Z79.4 - [facility] (CURRENT) USE OF INSULIN (2) Pyelonephritis Code(s): N12 - TUBULO-INTERSTITIAL NEPHRITIS, NOT SPCF ACUTE OR CHRONIC (3) Vomiting Code(s): R11.10 - VOMITING, UNSPECIFIED Qualifiers: Vomiting type: unspecified Vomiting Intractability: intractable Nausea presence: with nausea Qualified Code(s): R11.2 - Nausea with vomiting , unspecified (4) UTI (urinary tract infection) Code(s): N39.0 - URINARY TRACT INFECTION, SITE NOT SPECIFIED Qualifiers: Urinary tract infection type: site unspecified Hematuria presence: with hematuria Qualified Code(s): N39.0 - Urinary tract infection, site not specified; R31.9 - Hematuria, unspecified Visit type - Emergency Visit Emergency Visit: Yes ED Registration Date: 10/19/16 Care time: The patient presented to the Emergency Department on the above date and was hospitalized for further evaluation of their emergent condition. - New Patient This patient is new to me today: No - Critical Care Critical Care patient: No
[2016-10-22 20:28] LABS: MCH 28.4 pg (25.7-33.7); MEAN CELL VOLUME 83.5 fl (80-96); RDW 13.2 % (11.6-15.6); WHITE BLOOD COUNT 10.6 K/mm3 (4.0-10.0)
[2016-10-22] MEDS ORDERED: INSULIN (NOVOLOG) ASPART 100 UNITS/ML 10ML VIAL ONE (21:21)
[2016-10-22] MEDS: oxyCODONE HCL 5 MG TABLET PO PRN (21:53)
[2016-10-22] MEDS: MONTELUKAST NA 10 MG TABLET PO SCH (21:53)
[2016-10-22] MEDS: INSULIN DETEMIR 100 UNITS/ML MDV SQ SCH (21:59)
[2016-10-22 22:36] LABS: MEAN PLT VOLUME 12.8 fl (7.5-11.1); PLATELET COUNT 81 K/MM3 (134-434)
[2016-10-23] MEDS ORDERED: ALBUTEROL SO4 2.5/IPRATROPIUM 0.5 INH SOL 3 ML VIAL.NEB. NEB ONE (00:12)
--- NOTE | 2016-10-23 00:15 | HOSP ---
Subjective - Review of Symptoms Events since last encounter: Paged by RN. Patient satting in the 60's on RA. Patient put on 4L NC--satting 97. Patient still complaining of SOB. Physical Examination Vital Signs: Vital Signs Temperature 100.7 F H 10/22/16 22:00 Pulse Rate 102 H 10/22/16 18:00 Respiratory Rate 20 10/22/16 18:00 Blood Pressure 111/73 10/22/16 18:00 O2 Sat by Pulse Oximetry (%) 96 10/22/16 21:00 Constitutional: Yes: Well Nourished, Mild Distress Eyes: Yes: WNL, Conjunctiva Clear, EOM Intact HENT: Yes: WNL, Atraumatic, Normocephalic Neck: Yes: WNL, Supple, Trachea Midline Cardiovascular: Yes: WNL, Tachycardia (97) Respiratory: Yes: WNL, Other (Crackles at bilateral bases) Extremities: Yes: WNL, Other (No calf tenderness, negative j luis's sign) Neurological: Yes: WNL, Alert, Oriented Labs: CBC, BMP 10/22/16 19:50 10/22/16 06:30 Hospitalist Encounter Assessment: #Symptomatic Anemia, SOB and B/L crackles at bases -Hgb 6.5 -Stat CXR, sent to [facility] to read -[place] x1 -Dr. Kaur went to see the pt, rechecked saturation-- off O2 satting at 90% on RA. Patient back on 3L NC. B/L ausculation revealed basal crackles. no wheezes -Stat iv lasix 20 mg -Will wait for [facility] read of cxr -repeat cbc,bmp, ldh, reticulocyte count, d-dimer @ 0730 (transfusion finishes at 0600) -Put back on SCD's Visit type - Emergency Visit Emergency Visit: Yes ED Registration Date: 10/19/16 Care time: The patient presented to the Emergency Department on the above date and was hospitalized for further evaluation of their emergent condition. - New Patient This patient is new to me today: Yes Date on this admission: 10/23/16 - Critical Care Critical Care patient: No
[2016-10-23 00:34] LABS: MCH 28.2 pg (25.7-33.7); MEAN CELL VOLUME 83.1 fl (80-96); MEAN PLT VOLUME 13.2 fl (7.5-11.1); PLATELET COUNT 68 K/MM3 (134-434); RDW 13.4 % (11.6-15.6); WHITE BLOOD COUNT 8.4 K/mm3 (4.0-10.0)
[2016-10-23] MEDS ORDERED: FUROSEMIDE 40 MG/4 ML INJECTABLE VIAL IVPUSH ONE ×2 (03:18→05:30)
[2016-10-23] MEDS: GABAPENTIN 300 MG CAPSULE (FP) PO SCH ×3 (05:57→21:32)
[2016-10-23 06:06] LABS: SERUM IRON 8 ug/dL (27-159); TOTAL IRON BINDING CAPACITY 206 ug/dL (250-450); UIBC 198 ug/dL (131-425)
[2016-10-23] MEDS: INSULIN SLIDING SCALE (NOVOLOG) 1 VIAL SQ SCH ×4 (06:26→21:33)
[2016-10-23] MEDS: INSULIN (NOVOLOG) ASPART 100 UNITS/ML 10ML VIAL SQ SCH ×3 (06:26→16:55)
[2016-10-23] MEDS: oxyCODONE HCL 5 MG TABLET PO PRN ×2 (08:12→18:50)
[2016-10-23] MEDS: ACETAMINOPHEN 325 MG TABLET (FP) PO PRN ×2 (08:13→18:51)
[2016-10-23 09:16] LABS: MCH 27.6 pg (25.7-33.7); MCHC 33.9 g/dl (32.0-36.0); MEAN CELL VOLUME 81.4 fl (80-96); MEAN PLT VOLUME 11.9 fl (7.5-11.1); PLATELET COUNT 92 K/MM3 (134-434); RDW 13.3 % (11.6-15.6)
[2016-10-23 09:43] LABS: ANION GAP 9 (8-16); CALCIUM 8.6 mg/dL (8.5-10.1); CO2 27 mmol/L (21-32); GLUCOSE,RANDOM 108 mg/dL (74-106)
[2016-10-23 09:45] LABS: CREATININE 0.9 mg/dL (0.55-1.02); LDH 184 U/L (84-246)
[2016-10-23] MEDS ORDERED: DEXTROSE 5%-WATER 100 ML IVPB ONE (09:51)
[2016-10-23] MEDS: LISINOPRIL 5 MG TABLET (FP) PO SCH (09:52)
[2016-10-23] MEDS: CEFTRIAXONE 2 GM in DEXTROSE 5%-WATER 100 ML IVPB SCH (09:53)
[2016-10-23] MEDS ORDERED: FUROSEMIDE 40 MG/4 ML INJECTABLE VIAL IVPB ONE (10:00)
[2016-10-23] MEDS ORDERED: INSULIN (NOVOLOG) ASPART 100 UNITS/ML 10ML VIAL ONE ×2 (11:33→20:57)
--- NOTE | 2016-10-23 12:18 | PN ---
Teaching Attending Note Name of Resident: Fidel Gordon ATTENDING PHYSICIAN STATEMENT I saw and evaluated the patient. I reviewed the resident's note and discussed the case with the resident. I agree with the resident's findings and plan as documented. SUBJECTIVE:evalauted last night for dyspnea and desaturation to 60% per RN. on evaluation by night team was found to have saturations in the low 90%s on RA. CXR and CBC done at that time. Found to have congestive changes on CXR and anemic with Hgb 6.5. was transfused 1 unit PRBC and lasix was given. currently c/o dyspnea that resolved with supplemental oxygen. states she overall feels better but is tired due to not getting much sleep last night. states her menses has completely stopped at this time. denies CP, SOB, fever, chills, N/V/C/D. tolerating diet. OBJECTIVE: Last Vital Signs Temp Pulse Resp BP Pulse Ox 99.6 F 99 H 20 137/72 96 10/23/16 09:07 10/23/16 09:07 10/23/16 09:07 10/23/16 09:07 10/22/16 21:00 General NAD, CV S1 S2 RRR no murmur/rub/gallop Lungs Crackles B/L bases no wheezing Abdomen soft NT/ND no rebound or guarding extremities no pedal edema ASSESSMENT AND PLAN: 31 yo F wtih PMH DM presented to the ER with fever and L flank pain 1. Sepsis due to pyelonephritis- Tm100.7. repeat Ucx with growing organism. repeat Renal u/s negative for acute pathology, no signs of abscess. since clinically improving. resolved leukocytosis and 1 low grade fever will cont current managment. on ceftriaxone day 4. pain and nausea control 2, Acute Hypoxic respiratory distress- likely due to volume overload vs symptomatic anemia, however can not r/o PE. currently saturating 96% on 2L NC. CXR showing congestive changes and clinically have crackles. will give additional lasix 40mg IVP. was transfused 1 unit PRBC and clinically looks more comfortable. due to pt risk factors has intermediate risk of having PE as she is overweight, on OCP and mostly sedentary and has not been on heparin due to anemia. ddimer is elevated. will start with doppler of lower extremities at this time. will hold off on CTA as pt renal function has just improved and will want to avoid giving contrast if possible as well as since alternative diagnosis is available. will consider CTA if pt does not improve with diuresis. Echo pending. 3. Acute normocytic anemia- likley dilutional component vs onset of menses. iron studies showing anemia of chronic disease. menses has since resolved. s/p 1 unit PRBC with appropriate response. concern for etiology of bleeding. as pt is also pancytopenic, unclear of what previous workup is done. will attempt to get collateral information from PMD. will consult hematology. FOBT pending to r/ o GI cause. trend Hgb Q8H. transfuse as needed 4. IKE- liklely sepsis. resolved. avoid nephrotoxic agents. 5. Hyperkalemia- resolved 6. DM-A1c 8.7. improved. titrate insulin as needed. monitor closely. cont diabetic diet. iss, levemir. 7. DVT ppx- EAM, SCD
--- NOTE | 2016-10-23 16:30 | CONSULT ---
Consult - text type - Consultation Consultation Note: Patient is a 31yo F w/ PMHx of DM2, frequent UTIs, who presented with severe L flank pain. She was initially discharged from the ER with Macrobid after presenting with chills, fever (Tmax 101.4). At home, the patient continued to have emesis, was unable to take PO antibiotics. She had new severe L flank pain which brought her into the ER. She describes it as a pressure, which radiates into her side. She denies dysuria, frequency, urgency. No hx of trauma to back. Denies renal colic pain. Denies severe abdominal pain. PAST MEDICAL HISTORY: UTIs, DM2, Neuropathy, Allergies PAST SURGICAL HISTORY: , R toe amputation Social History: Smoking: Denies Alcohol: Denies Drugs: Denies Family History: No FHx of Kidney Disease Allergies No Known Allergies Allergy (Verified 10/19/16 16:04) Last Vital Signs Temp Pulse Resp BP Pulse Ox 98.4 F 95 H 20 113/78 96 10/23/16 14:28 10/23/16 14:28 10/23/16 14:28 10/23/16 14:28 10/22/16 21:00 PHYSICAL EXAMINATION GEN: AAOx3, NAD HEENT: PERRLA, EOMi, No Cervical LAD CV: S1, S2, RRR, No murmurs LUNG: CTABL ABD: Soft, NT, ND, hypoactive BS MSK: TTP in L flank, no edema, no erythema, R 1st toe amputation NEURO: nonfocal Abnormal Lab Results 10/22/16 10/22/16 10/22/16 06:30 06:30 19:50 WBC 10.6 H RBC 2.63 L Hgb 7.4 L Hct 21.9 L Plt Count 81 L MPV 12.8 H D-Dimer Random Glucose Iron 8 L TIBC 206 L Iron Saturation 4 L Transferrin 169 L Crossmatch 10/23/16 10/23/16 10/23/16 00:01 01:00 08:55 WBC RBC 2.31 L 3.07 L D Hgb 6.5 L* D 8.5 L D Hct 19.2 L 25.0 L D Plt Count 68 L 92 L D MPV 13.2 H 11.9 H D-Dimer Random Glucose Iron TIBC Iron Saturation Transferrin Crossmatch See Detail 10/23/16 10/23/16 08:55 08:55 WBC RBC Hgb Hct Plt Count MPV D-Dimer 2471 H Random Glucose 108 H D Iron TIBC Iron Saturation Transferrin Crossmatch Home Medication List Medication Instructions Recorded Confirmed Type Cetirizine HCl [All Day Allergy] 10 mg PO DAILY 10/19/16 10/19/16 History Gabapentin 300 mg PO TID 10/19/16 10/19/16 History Insulin Glargine,Hum.rec.anlog 30 units SQ HS 10/19/16 10/19/16 History [Lantus Solostar PEN (NF)] Insulin Lispro [Humalog] 8 unit SQ TID 10/19/16 10/19/16 History Lisinopril [Zestril] 2.5 mg PO DAILY 10/19/16 10/19/16 History Metformin HCl 500 mg PO HS 10/19/16 10/19/16 History Metformin HCl [Glucophage] 1,000 mg PO AM 10/19/16 10/19/16 History Montelukast Na [Singulair -] 10 mg PO DAILY 10/19/16 10/19/16 History Naproxen [Naprosyn -] 500 mg PO PRN 10/19/16 10/19/16 History Active Medications Generic Name Dose Route Start Last Admin Trade Name Tonya PRN Reason Stop Dose Admin Acetaminophen 325 mg 10/20/16 13:21 10/23/16 08:13 Tylenol - PO 325 mg Q6H PRN Administration FEVER OR PAIN Gabapentin 300 mg 10/19/16 22:00 10/23/16 14:28 Neurontin - PO Not Given TID [facility] Ceftriaxone Sodium 2 gm/ 100 mls @ 200 mls/hr 10/21/16 10:00 10/23/16 09:53 Dextrose IVPB 200 mls/hr DAILY [facility] Administration Insulin Aspart 8 units 10/20/16 07:00 10/23/16 11:34 Novolog Vial SQ 8 units TIDAC [facility] Administration Insulin Aspart 1 vial 10/20/16 22:00 10/23/16 11:32 Novolog Vial Sliding Scale - SQ Not Given ACHS [facility] Protocol Insulin Detemir 35 units 10/22/16 22:00 10/22/16 21:59 Levemir Vial SQ 35 units HS [facility] Administration Lisinopril 2.5 mg 10/20/16 10:00 10/23/16 09:52 Prinivil PO 2.5 mg DAILY [facility] Administration Metoclopramide HCl 10 mg 10/20/16 13:17 Reglan - PO Q6H PRN NAUSEA AND/OR VOMITING Montelukast Sodium 10 mg 10/20/16 22:00 10/22/16 21:53 Singulair - PO Not Given HS [facility] Oxycodone HCl 5 mg 10/20/16 13:20 10/23/16 08:12 Roxicodone - PO 5 mg Q6H PRN Administration PAIN Imaging: CT abd/pelvis - prelim read (no acute pathology, constipation) ASSESSMENT/PLAN: Pt is a 31yo F w/ PMHx of DM2, multiple UTIs who presented with L flank pain, fevers, high WBC, admitted for pyelonephritis Thrombocytopenia: chronic. ? ITP Worsening due to infection improving will check u/s liver/spleen to r/o liver disease Anemia --multifactorial anemia of chronic disease +/- iron deficiency B00--rzgoyt. LDH--nl folate pending check flow/TSH/fT4/Hemoglobin electrophoresis
--- NOTE | 2016-10-23 17:25 | PN ---
Physical Exam: SUBJECTIVE: Patient seen and examined. Patient's f/u CBC overnight showed Hb 6.5 , is s/p 1uPRBC, post transfusion cbc 8.5. Patient looks and feels better today ; she continues to complain of shortness of breath overnight. OBJECTIVE: Vital Signs Period Temp Pulse Resp BP Sys/Cat Pulse Ox Last 24 Hr 98.0 F-100.7 F 95-108 18-20 110-148/64-88 96 GENERAL: The patient is awake, alert, and fully oriented, in no acute distress. HEAD: Normal with no signs of trauma. EYES: extraocular movements intact, sclera anicteric, conjunctiva clear. No ptosis. NECK: Trachea midline, full range of motion, supple. LUNGS: Breath sounds equal, clear to auscultation bilaterally, no wheezes, no crackles, no accessory muscle use. HEART: Regular rate and rhythm, S1, S2 without murmur, rub or gallop. ABDOMEN: Soft, nontender, nondistended, normoactive bowel sounds, no guarding, no rebound. EXTREMITIES: 2+ pulses, warm, well-perfused, no edema. Right great toe amputation NEUROLOGICAL: Cranial nerves II through X grossly intact. Normal speech, gait not observed. PSYCH: Normal mood, normal affect. SKIN: Warm, dry, normal turgor, no rashes or lesions noted Laboratory Results - last 24 hr 10/22/16 10/22/16 10/22/16 06:30 06:30 19:50 WBC 10.6 H RBC 2.63 L Hgb 7.4 L Hct 21.9 L MCV 83.5 MCH 28.4 MCHC 34.0 RDW 13.2 Plt Count 81 L MPV 12.8 H Retic Count D-Dimer Sodium Potassium Chloride Carbon Dioxide Anion Gap BUN Creatinine POC Glucometer Random Glucose Calcium Iron 8 L TIBC 206 L Iron Saturation 4 L Transferrin 169 L LD Total Blood Type Antibody Screen Crossmatch 10/22/16 10/23/16 10/23/16 21:57 00:01 01:00 WBC 8.4 RBC 2.31 L Hgb 6.5 L* D Hct 19.2 L MCV 83.1 MCH 28.2 MCHC 34.0 RDW 13.4 Plt Count 68 L MPV 13.2 H Retic Count D-Dimer Sodium Potassium Chloride Carbon Dioxide Anion Gap BUN Creatinine POC Glucometer 254 Random Glucose Calcium Iron TIBC Iron Saturation Transferrin LD Total Blood Type A POSITIVE Antibody Screen Negative Crossmatch See Detail 10/23/16 10/23/16 10/23/16 06:24 08:55 08:55 WBC 10.0 RBC 3.07 L D Hgb 8.5 L D Hct 25.0 L D MCV 81.4 MCH 27.6 MCHC 33.9 RDW 13.3 Plt Count 92 L D MPV 11.9 H Retic Count 1.35 D-Dimer 2471 H Sodium Potassium Chloride Carbon Dioxide Anion Gap BUN Creatinine POC Glucometer 158 Random Glucose Calcium Iron TIBC Iron Saturation Transferrin LD Total Blood Type Antibody Screen Crossmatch 10/23/16 10/23/16 10/23/16 08:55 11:30 16:44 WBC RBC Hgb Hct MCV MCH MCHC RDW Plt Count MPV Retic Count D-Dimer Sodium 138 Potassium 3.5 Chloride 102 Carbon Dioxide 27 Anion Gap 9 BUN 16 D Creatinine 0.9 D POC Glucometer 100 97 Random Glucose 108 H D Calcium 8.6 Iron TIBC Iron Saturation Transferrin LD Total 184 Blood Type Antibody Screen Crossmatch Active Medications Generic Name Dose Route Start Last Admin Trade Name Freq PRN Reason Stop Dose Admin Acetaminophen 325 mg 10/20/16 13:21 10/23/16 08:13 Tylenol - PO 325 mg Q6H PRN Administration FEVER OR PAIN Gabapentin 300 mg 10/19/16 22:00 10/23/16 14:28 Neurontin - PO Not Given TID [facility] Ceftriaxone Sodium 2 gm/ 100 mls @ 200 mls/hr 10/21/16 10:00 10/23/16 09:53 Dextrose IVPB 200 mls/hr DAILY [facility] Administration Insulin Aspart 8 units 10/20/16 07:00 10/23/16 16:55 Novolog Vial SQ Not Given TIDAC [facility] Insulin Aspart 1 vial 10/20/16 22:00 10/23/16 16:55 Novolog Vial Sliding Scale - SQ Not Given ACHS [facility] Protocol Insulin Detemir 35 units 10/22/16 22:00 10/22/16 21:59 Levemir Vial SQ 35 units HS [facility] Administration Lisinopril 2.5 mg 10/20/16 10:00 10/23/16 09:52 Prinivil PO 2.5 mg DAILY [facility] Administration Metoclopramide HCl 10 mg 10/20/16 13:17 Reglan - PO Q6H PRN NAUSEA AND/OR VOMITING Montelukast Sodium 10 mg 10/20/16 22:00 10/22/16 21:53 Singulair - PO Not Given HS [facility] Oxycodone HCl 5 mg 10/20/16 13:20 10/23/16 08:12 Roxicodone - PO 5 mg Q6H PRN Administration PAIN ASSESSMENT/PLAN: Pt is a 31yo F w/ PMHx of DM2, multiple UTIs who presented with L flank pain, fevers, high WBC, admitted for pyelonephritis #Acute hypoxic respiratory failure 2/2 Fluid overload vs Pneumonia -cxr shows new congestive changes -alternating between desaturating on room air and saturating well on room air -Echo -incentive spirometry -nebs prn -Lasix 40mg IVPB # Sepsis 2/2 Pyelonephritis - Ceftriaxone 2g daily; day 4 - afebrile overnight - IVNS @ 75cc/hr - repeat renal ultrasound WNL - Blood culture negative to date -urine culture growing non-lactose fermenting GNB - Pain control w/ percocet 5/325 Q6H - reglan 10mg PO PRN nausea #Anemia -Hb 6.5 overnight -s/p 1u PRBC -repeat cbc 8.5 -continue to monitor -transfuse if patient's h&h falls below 7 -Hematology consult -reached out to primary to establish baseline; no response # Thrombocytopenia - No acute bleeds - Continue to monitor -platelets 94 today # dizziness, fullness in ears, lethargy likely 2/2 dehydration vs antihistamines -d/c'd loratidine -monitor closely -otoscope examination negative -patient refusing neurontin; less lethargic off medications # IKE likely 2/2 sepsis vs vomiting- resolved - B/L Cr is 0.9-1.0 - IVNS @ 75cc/hr - Cr today is .9 - monitor # HyperKalemia- resolved - Continue insulin -monitor # Diabetes Mellitus - insulin dependent - levemir 35u QHS - Novolog 8u TIDAC - Continue ISS - Hold Metformin for IKE - Continue Lisinopril # Diabetic Neuropathy - Continue Gabapentin - Pt also takes home Naproxen for neuropathic pain, held due to IKE # Hx of Allergies - Continue Claritin and Singulair - No hx of Asthma # FEN - Fluids: none - Monitor Electrolytes - Nutrition: Diabetic diet # Prophylaxis - DVT: B/L SCDs - GI: None indicated - Deconditioning: PT ordered, pt uses cane at home # Dispo - Admitted for management secondary to pyelonephritis and hematalogic abnormalities. Problem List - Problems (1) Insulin dependent diabetes mellitus Code(s): E11.9 - TYPE 2 DIABETES MELLITUS WITHOUT COMPLICATIONS Z79.4 - [facility]SING HOME (CURRENT) USE OF INSULIN (2) Pyelonephritis Code(s): N12 - TUBULO-INTERSTITIAL NEPHRITIS, NOT SPCF ACUTE OR CHRONIC (3) Vomiting Code(s): R11.10 - VOMITING, UNSPECIFIED Qualifiers: Vomiting type: unspecified Vomiting Intractability: intractable Nausea presence: with nausea Qualified Code(s): R11.2 - Nausea with vomiting , unspecified (4) UTI (urinary tract infection) Code(s): N39.0 - URINARY TRACT INFECTION, SITE NOT SPECIFIED Qualifiers: Urinary tract infection type: site unspecified Hematuria presence: with hematuria Qualified Code(s): N39.0 - Urinary tract infection, site not specified; R31.9 - Hematuria, unspecified Visit type - Emergency Visit Emergency Visit: Yes ED Registration Date: 10/19/16 Care time: The patient presented to the Emergency Department on the above date and was hospitalized for further evaluation of their emergent condition. - New Patient This patient is new to me today: No - Critical Care Critical Care patient: No
[2016-10-23 18:38] LABS: MCH 28.2 pg (25.7-33.7); MCHC 34.9 g/dl (32.0-36.0); MEAN CELL VOLUME 80.8 fl (80-96); RDW 13.8 % (11.6-15.6); WHITE BLOOD COUNT 10.4 K/mm3 (4.0-10.0)
[2016-10-23 19:21] LABS: PLATELET COUNT 114 K/MM3 (134-434)
[2016-10-23 19:22] LABS: PLATELET COMMENT2 NO CLOTTING DETECTED; PLATELET COMMENT3 FEW GIANT PLTS; PLATELET ESTIMATE SLT DECREASED (NORMAL)
[2016-10-23 19:41] LABS: MEAN PLT VOLUME 12.5 fl (7.5-11.1)
[2016-10-23] MEDS: INSULIN DETEMIR 100 UNITS/ML MDV SQ SCH (21:33)
[2016-10-23] MEDS: MONTELUKAST NA 10 MG TABLET PO SCH (21:33)
[2016-10-23] MEDS: ALBUTEROL SO4 0.083% IH SOL 2.5 MG/3 ML VIAL.NEB. NEB PRN (23:07)
[2016-10-24] MEDS: ACETAMINOPHEN 325 MG TABLET (FP) PO PRN ×2 (01:05→15:00)
[2016-10-24] MEDS: oxyCODONE HCL 5 MG TABLET PO PRN ×3 (01:06→21:45)
[2016-10-24] MEDS: GABAPENTIN 300 MG CAPSULE (FP) PO SCH ×3 (05:52→21:42)
[2016-10-24] MEDS: INSULIN SLIDING SCALE (NOVOLOG) 1 VIAL SQ SCH ×4 (06:12→21:42)
[2016-10-24] MEDS: INSULIN (NOVOLOG) ASPART 100 UNITS/ML 10ML VIAL SQ SCH ×3 (06:12→16:36)
[2016-10-24] MEDS: ALBUTEROL SO4 0.083% IH SOL 2.5 MG/3 ML VIAL.NEB. NEB PRN ×2 (07:25→11:15)
[2016-10-24 08:07] LABS: HEMATOCRIT 21.6 % (34.0-46.6)
--- NOTE | 2016-10-24 08:54 | PN ---
Progress Note (short form) - Note Progress Note: c/o SOb but improved. +orthopnea. some mild L flank and back pain. denies CP, SOB, fever, chills, N/V/C/D Current Medications Generic Name Dose Route Start Last Admin Trade Name Freq PRN Reason Stop Dose Admin Acetaminophen 325 mg 10/20/16 13:21 10/24/16 01:05 Tylenol - PO 325 mg Q6H PRN Administration FEVER OR PAIN Albuterol Sulfate 1 amp 10/23/16 22:19 10/24/16 07:25 Ventolin 0.083% Nebulizer Soln - NEB 1 amp Q6H PRN Administration SHORT OF BREATH/WHEEZING Gabapentin 300 mg 10/19/16 22:00 10/24/16 05:52 Neurontin - PO Not Given TID MONSERRAT Ceftriaxone Sodium 2 gm/ 100 mls @ 200 mls/hr 10/21/16 10:00 10/23/16 09:53 Dextrose IVPB 200 mls/hr DAILY MONSERRAT Administration Insulin Aspart 8 units 10/20/16 07:00 10/24/16 06:12 Novolog Vial SQ Not Given TIDAC MONSERRAT Insulin Aspart 1 vial 10/20/16 22:00 10/24/16 06:12 Novolog Vial Sliding Scale - SQ Not Given ACHS [facility] Protocol Insulin Detemir 35 units 10/22/16 22:00 10/23/16 21:33 Levemir Vial SQ 35 units HS MONSERRAT Administration Lisinopril 2.5 mg 10/20/16 10:00 10/23/16 09:52 Prinivil PO 2.5 mg DAILY MONSERRAT Administration Metoclopramide HCl 10 mg 10/20/16 13:17 Reglan - PO Q6H PRN NAUSEA AND/OR VOMITING Montelukast Sodium 10 mg 10/20/16 22:00 10/23/16 21:33 Singulair - PO Not Given HS MONSERRAT Oxycodone HCl 5 mg 10/20/16 13:20 10/24/16 01:06 Roxicodone - PO 5 mg Q6H PRN Administration PAIN Last Vital Signs Temp Pulse Resp BP Pulse Ox 98 F 84 18 115/54 92 L 10/24/16 06:06 10/24/16 06:06 10/24/16 06:06 10/24/16 06:06 10/23/16 20:33 General NAD, CV S1 S2 RRR no murmur/rub/gallop Lungs Crackles B/L bases no wheezing Abdomen soft NT/ND no rebound or guarding , no flank tenderness extremities no pedal edema CBCD WBC 9.5 K/mm3 (4.0-10.0) 10/24/16 06:00 RBC 2.84 M/mm3 (3.60-5.2) L 10/24/16 06:00 Hgb 7.9 GM/dL (10.7-15.3) L D 10/24/16 06:00 Hct 23.1 % (32.4-45.2) L 10/24/16 06:00 MCV 81.2 fl (80-96) 10/24/16 06:00 MCHC 34.3 g/dl (32.0-36.0) 10/24/16 06:00 RDW 13.6 % (11.6-15.6) 10/24/16 06:00 Plt Count 98 K/MM3 (134-434) L 10/24/16 06:00 MPV 12.4 fl (7.5-11.1) H 10/24/16 06:00 CMP Sodium 138 mmol/L (136-145) 10/24/16 07:35 Potassium 3.5 mmol/L (3.5-5.1) 10/24/16 07:35 Chloride 101 mmol/L (98-107) 10/24/16 07:35 Carbon Dioxide 28 mmol/L (21-32) 10/24/16 07:35 Anion Gap 9 (8-16) 10/24/16 07:35 BUN 18 mg/dL (7-18) 10/24/16 07:35 Creatinine 0.8 mg/dL (0.55-1.02) 10/24/16 07:35 Creat Clearance w eGFR > 60 (>60) 10/21/16 08:00 Calcium 8.1 mg/dL (8.5-10.1) L 10/24/16 07:35 Total Bilirubin 0.4 mg/dL (0.2-1.0) D 10/21/16 08:00 AST 24 U/L (15-37) D 10/21/16 08:00 ALT 22 U/L (12-78) D 10/21/16 08:00 Alkaline Phosphatase 63 U/L (45-117) D 10/21/16 08:00 Total Protein 5.6 g/dl (6.4-8.2) L D 10/21/16 08:00 Albumin 2.7 g/dl (3.4-5.0) L D 10/21/16 08:00 Microbiology 10/22/16 01:15 Urine Culture - Final Urine - Urine Clean Catch Klebsiella Pneumoniae - Esbl 10/22/16 01:20 Blood Culture - Preliminary Blood - Peripheral Venous NO GROWTH OBTAINED AFTER 48 HOURS, INCUBATION TO CONTINUE FOR 3 DAYS. 10/22/16 01:26 Blood Culture - Preliminary Blood - Peripheral Venous NO GROWTH OBTAINED AFTER 48 HOURS, INCUBATION TO CONTINUE FOR 3 DAYS. 10/19/16 17:00 Blood Culture - Preliminary Blood - Peripheral Venous NO GROWTH OBTAINED AFTER 96 HOURS, INCUBATION TO CONTINUE FOR 1 DAYS. 10/19/16 17:00 Blood Culture - Preliminary Blood - Peripheral Venous NO GROWTH OBTAINED AFTER 96 HOURS, INCUBATION TO CONTINUE FOR 1 DAYS. ASSESSMENT AND PLAN: 31 yo F wtih PMH DM presented to the ER with fever and L flank pain 1. Sepsis due to pyelonephritis-afebrile >24H. Repeat UCx now growing Klebsiella ESBL only resistent to unasyn. as pt is clinically improving. no leukocytosis and afebrile will switch to levaquin 750mg IV. will monitor on switched therapy. pain and nausea control 2, Acute Hypoxic respiratory distress- likely due to volume overload vs symptomatic anemia. currently saturating 98% on 2L NC. will give lasix 40mg IVP. LE doppplers negative for DVT. low concern for PE as clinically improving. Echo pending. 3. Acute normocytic anemia- likley dilutional component vs onset of menses. iron studies showing iron defeciency anemia and anemia of chronic disease, hgb electrophoresis pending. hematology consulted, workup per heme. cont to trend hgb BID. 1 unit PRBC this admission. transfuse as needed 4. thrombocytopenia- likley due to sepsis. now improving. as per pt she has hx of thrombocytopenia during a previous . spleen is slightly enlarged. 5. IKE- liklely sepsis. resolved. avoid nephrotoxic agents. 6. Hyperkalemia- resolved 7. DM-A1c 8.7. improved. will decrease levemir to 32units as requirements likely improving as infection is treated. cont diabetic diet. iss, levemir. 8. DVT ppx- EAM, SCD Visit type - Emergency Visit Emergency Visit: Yes ED Registration Date: 10/19/16 Care time: The patient presented to the Emergency Department on the above date and was hospitalized for further evaluation of their emergent condition. - New Patient This patient is new to me today: No - Critical Care Critical Care patient: No - Discharge Referral Referred to [facility] No
[2016-10-24 08:58] LABS: RDW 13.6 % (11.6-15.6)
[2016-10-24 09:01] LABS: MCH 27.8 pg (25.7-33.7); MCHC 34.3 g/dl (32.0-36.0); MEAN CELL VOLUME 81.2 fl (80-96); MEAN PLT VOLUME 12.4 fl (7.5-11.1); PLATELET COUNT 98 K/MM3 (134-434); WHITE BLOOD COUNT 9.5 K/mm3 (4.0-10.0)
[2016-10-24 09:19] LABS: ANION GAP 9 (8-16); CALCIUM 8.1 mg/dL (8.5-10.1); CO2 28 mmol/L (21-32); CREATININE 0.8 mg/dL (0.55-1.02); GLUCOSE,RANDOM 75 mg/dL (74-106)
[2016-10-24 09:26] LABS: FREE T4 1.32 ng/dl (0.76-1.46); THYROID STIMULATING HORMONE 2.54 uIU/ml (0.358-3.74)
[2016-10-24] MEDS ORDERED: DEXTROSE 5%-WATER 100 ML IVPB ONE (09:30)
[2016-10-24] MEDS: CEFTRIAXONE 2 GM in DEXTROSE 5%-WATER 100 ML IVPB SCH (10:21)
[2016-10-24] MEDS: LISINOPRIL 5 MG TABLET (FP) PO SCH (10:21)
[2016-10-24] MEDS ORDERED: FUROSEMIDE 40 MG/4 ML INJECTABLE VIAL IVPB ONE (12:10)
[2016-10-24] MEDS ORDERED: FUROSEMIDE 40 MG/4 ML INJECTABLE VIAL ONE (14:51)
[2016-10-24] MEDS: LEVOFLOXACIN 750 MG IVPB 150 ML IVPB SCH (15:01)
[2016-10-24 15:13] LABS: MCH 27.7 pg (25.7-33.7); MCHC 33.6 g/dl (32.0-36.0); MEAN CELL VOLUME 82.3 fl (80-96); MEAN PLT VOLUME 12.2 fl (7.5-11.1); PLATELET COUNT 125 K/MM3 (134-434); RDW 13.8 % (11.6-15.6); WHITE BLOOD COUNT 9.5 K/mm3 (4.0-10.0)
[2016-10-24] MEDS ORDERED: INSULIN (NOVOLOG) ASPART 100 UNITS/ML 10ML VIAL ONE (21:18)
[2016-10-24] MEDS: INSULIN DETEMIR 100 UNITS/ML MDV SQ SCH (21:41)
[2016-10-24] MEDS: MONTELUKAST NA 10 MG TABLET PO SCH (21:43)
[2016-10-25] MEDS: ALBUTEROL SO4 0.083% IH SOL 2.5 MG/3 ML VIAL.NEB. NEB PRN ×2 (00:35→11:44)
[2016-10-25] MEDS: oxyCODONE HCL 5 MG TABLET PO PRN ×3 (03:28→21:40)
[2016-10-25] MEDS: ACETAMINOPHEN 325 MG TABLET (FP) PO PRN ×2 (03:28→09:45)
[2016-10-25] MEDS: INSULIN SLIDING SCALE (NOVOLOG) 1 VIAL SQ SCH ×4 (06:40→21:44)
[2016-10-25] MEDS: GABAPENTIN 300 MG CAPSULE (FP) PO SCH ×3 (06:41→21:41)
[2016-10-25] MEDS: INSULIN (NOVOLOG) ASPART 100 UNITS/ML 10ML VIAL SQ SCH ×3 (06:41→17:03)
[2016-10-25 07:25] LABS: MCH 27.6 pg (25.7-33.7); MCHC 33.7 g/dl (32.0-36.0); MEAN CELL VOLUME 81.8 fl (80-96); MEAN PLT VOLUME 11.4 fl (7.5-11.1); PLATELET COUNT 155 K/MM3 (134-434); RDW 13.8 % (11.6-15.6); WHITE BLOOD COUNT 9.9 K/mm3 (4.0-10.0)
[2016-10-25 07:46] LABS: ANION GAP 10 (8-16); CALCIUM 8.5 mg/dL (8.5-10.1); CO2 30 mmol/L (21-32); CREATININE 0.9 mg/dL (0.55-1.02); GLUCOSE,RANDOM 100 mg/dL (74-106)
[2016-10-25] MEDS: LISINOPRIL 5 MG TABLET (FP) PO SCH (09:46)
[2016-10-25] MEDS: LEVOFLOXACIN 750 MG IVPB 150 ML IVPB SCH (09:49)
--- NOTE | 2016-10-25 09:56 | PN ---
Progress Note (short form) - Note Progress Note: reports dyspnea as improves. worse when laying down. continues to have L flank pain that improves with pain medication. denies CP, SOB, fever, chills, N/V/C/D Current Medications Generic Name Dose Route Start Last Admin Trade Name Freq PRN Reason Stop Dose Admin Acetaminophen 325 mg 10/20/16 13:21 10/25/16 09:45 Tylenol - PO 325 mg Q6H PRN Administration FEVER OR PAIN Albuterol Sulfate 1 amp 10/23/16 22:19 10/25/16 00:35 Ventolin 0.083% Nebulizer Soln - NEB 1 amp Q6H PRN Administration SHORT OF BREATH/WHEEZING Gabapentin 300 mg 10/19/16 22:00 10/25/16 06:41 Neurontin - PO 300 mg TID MONSERRAT Administration Levofloxacin 150 mls @ 100 mls/hr 10/24/16 14:30 10/25/16 09:49 Levaquin 750 Mg Premixed Ivpb - IVPB 100 mls/hr DAILY MONSERRAT Administration Insulin Aspart 8 units 10/20/16 07:00 10/25/16 06:41 Novolog Vial SQ 8 units TIDAC MONSERRAT Administration Insulin Aspart 1 vial 10/20/16 22:00 10/25/16 06:40 Novolog Vial Sliding Scale - SQ Not Given [facility] Protocol Insulin Detemir 32 units 10/24/16 08:54 10/24/16 21:41 Levemir Vial SQ 32 units HS MONSERRAT Administration Lisinopril 2.5 mg 10/20/16 10:00 10/25/16 09:46 Prinivil PO 2.5 mg DAILY MONSERRAT Administration Metoclopramide HCl 10 mg 10/20/16 13:17 Reglan - PO Q6H PRN NAUSEA AND/OR VOMITING Montelukast Sodium 10 mg 10/20/16 22:00 10/24/16 21:43 Singulair - PO 10 mg HS MONSERRAT Administration Oxycodone HCl 5 mg 10/20/16 13:20 10/25/16 09:47 Roxicodone - PO 5 mg Q6H PRN Administration PAIN Last Vital Signs Temp Pulse Resp BP Pulse Ox 97.9 F 82 20 111/69 96 10/25/16 08:35 10/25/16 08:35 10/25/16 08:52 10/25/16 08:35 10/25/16 08:52 General NAD, CV S1 S2 RRR no murmur/rub/gallop Lungs Crackles B/L bases no wheezing Abdomen soft NT/ND no rebound or guarding , +muscle spasm extremities no pedal edema CBCD WBC 9.9 K/mm3 (4.0-10.0) 10/25/16 06:00 RBC 2.90 M/mm3 (3.60-5.2) L 10/25/16 06:00 Hgb 8.0 GM/dL (10.7-15.3) L 10/25/16 06:00 Hct 23.7 % (32.4-45.2) L 10/25/16 06:00 MCV 81.8 fl (80-96) 10/25/16 06:00 MCHC 33.7 g/dl (32.0-36.0) 10/25/16 06:00 RDW 13.8 % (11.6-15.6) 10/25/16 06:00 Plt Count 155 K/MM3 (134-434) D 10/25/16 06:00 MPV 11.4 fl (7.5-11.1) H 10/25/16 06:00 CMP Sodium 138 mmol/L (136-145) 10/25/16 06:00 Potassium 3.7 mmol/L (3.5-5.1) 10/25/16 06:00 Chloride 98 mmol/L (98-107) 10/25/16 06:00 Carbon Dioxide 30 mmol/L (21-32) 10/25/16 06:00 Anion Gap 10 (8-16) 10/25/16 06:00 BUN 20 mg/dL (7-18) H 10/25/16 06:00 Creatinine 0.9 mg/dL (0.55-1.02) 10/25/16 06:00 Creat Clearance w eGFR > 60 (>60) 10/21/16 08:00 Calcium 8.5 mg/dL (8.5-10.1) 10/25/16 06:00 Total Bilirubin 0.4 mg/dL (0.2-1.0) D 10/21/16 08:00 AST 24 U/L (15-37) D 10/21/16 08:00 ALT 22 U/L (12-78) D 10/21/16 08:00 Alkaline Phosphatase 63 U/L (45-117) D 10/21/16 08:00 Total Protein 5.6 g/dl (6.4-8.2) L D 10/21/16 08:00 Albumin 2.7 g/dl (3.4-5.0) L D 10/21/16 08:00 ASSESSMENT AND PLAN: 31 yo F wtih PMH DM presented to the ER with fever and L flank pain 1. Sepsis due to pyelonephritis-afebrile >48H. Repeat UCx now growing Klebsiella ESBL only resistant to unasyn. on Levaquin day 2. day 6 of total abx therapy. will repeat Urine studies as remains symptomatic. will try muscle relaxer for flank pain as may be muscular in nature. pain and nausea control. spoke with ID who agrees with plan 2, Acute Hypoxic respiratory distress- likely due to volume overload vs symptomatic anemia. currently saturating 95% on RA. continues to have some crackles. will give lasix 40mg IVPB. LE doppplers negative for DVT. low concern for PE as clinically improving. Echo pending reading was done on wednesday. 3. Acute normocytic anemia- likely dilutional component vs onset of menses. iron studies showing iron defeciency anemia and anemia of chronic disease, hgb electrophoresis pending. hematology consulted, workup per heme. cont to trend hgb BID. start iron supplementation. col1 unit PRBC this admission. transfuse as needed 4. constipation- no BM >3 days. start miralax, stool softeners 5. thrombocytopenia- likley due to sepsis. now improving. as per pt she has hx of thrombocytopenia during a previous . spleen is slightly enlarged. 6. IKE- liklely sepsis. resolved. avoid nephrotoxic agents. 7. Hyperkalemia- resolved 8. DM-A1c 8.7. improved. cont levemir. cont diabetic diet. iss, levemir. 9. DVT ppx- EAM, SCD Visit type - Emergency Visit Emergency Visit: Yes ED Registration Date: 10/19/16 Care time: The patient presented to the Emergency Department on the above date and was hospitalized for further evaluation of their emergent condition. - New Patient This patient is new to me today: No - Critical Care Critical Care patient: No - Discharge Referral Referred to [facility] No
[2016-10-25] MEDS ORDERED: FUROSEMIDE 40 MG/4 ML INJECTABLE VIAL IVPB ONE (10:15)
[2016-10-25] MEDS ORDERED: SENNOSIDES 8.6MG TABLET (FP) PO PRN (10:32)
[2016-10-25] MEDS ORDERED: CYCLOBENZAPRINE HCL 10 MG TABLET (FP) PO PRN (10:32)
[2016-10-25] MEDS: POLYETHYLENE GLYCOL 3350 119 GM BTL PO SCH (11:39)
[2016-10-25 13:16] LABS: MCH 27.7 pg (25.7-33.7); MCHC 33.3 g/dl (32.0-36.0); MEAN CELL VOLUME 83.1 fl (80-96); MEAN PLT VOLUME 11.7 fl (7.5-11.1); PLATELET COUNT 195 K/MM3 (134-434); RDW 13.6 % (11.6-15.6); WHITE BLOOD COUNT 10.2 K/mm3 (4.0-10.0)
[2016-10-25 16:53] LABS: URINE APPEARANCE CLEAR; URINE BILIRUBIN NEGATIVE (NEGATIVE); URINE BLOOD 1+ (NEGATIVE); URINE COLOR LTYELLOW; URINE GLUCOSE (UA) NEGATIVE (NEGATIVE); URINE KETONE NEGATIVE (NEGATIVE); URINE LEUK ESTERASE TRACE (NEGATIVE); URINE NITRITE NEGATIVE (NEGATIVE); URINE PROTEIN NEGATIVE (NEGATIVE); URINE UROBILINOGEN NEGATIVE mg/dL (0.2-1.0)
[2016-10-25] MEDS: FERROUS SO4 325 MG TABLET (FP) PO SCH (17:02)
[2016-10-25 17:12] LABS: CALCIUM OXALATE CRYSTALS RARE /hpf (NONE SEEN); URINE BACTERIA FEW /hpf (NONE SEEN); URINE HYALINE CAST 4 /lpf; URINE RBC 3 /hpf (0-3); URINE WBC 17 /hpf (3-5); YEAST MODERATE
[2016-10-25] MEDS ORDERED: INSULIN (NOVOLOG) ASPART 100 UNITS/ML 10ML VIAL ONE (21:26)
[2016-10-25] MEDS: MONTELUKAST NA 10 MG TABLET PO SCH (21:40)
[2016-10-25] MEDS: INSULIN DETEMIR 100 UNITS/ML MDV SQ SCH (21:41)
[2016-10-25] MEDS ORDERED: DOCUSATE SODIUM 100 MG CAPSULE (FP) PO SCH (22:00)
[2016-10-26] MEDS: ALBUTEROL SO4 0.083% IH SOL 2.5 MG/3 ML VIAL.NEB. NEB PRN (00:19)
[2016-10-26] MEDS: GABAPENTIN 300 MG CAPSULE (FP) PO SCH ×2 (06:30→14:40)
[2016-10-26] MEDS: INSULIN SLIDING SCALE (NOVOLOG) 1 VIAL SQ SCH ×3 (06:31→17:18)
[2016-10-26] MEDS: INSULIN (NOVOLOG) ASPART 100 UNITS/ML 10ML VIAL SQ SCH ×3 (06:31→17:18)
[2016-10-26 08:10] LABS: ANION GAP 10 (8-16); CALCIUM 8.6 mg/dL (8.5-10.1); CO2 29 mmol/L (21-32); GLUCOSE,RANDOM 147 mg/dL (74-106)
[2016-10-26 08:11] LABS: CREATININE 0.9 mg/dL (0.55-1.02)
[2016-10-26 08:34] LABS: MCH 27.6 pg (25.7-33.7); MEAN CELL VOLUME 83.9 fl (80-96); PLATELET COUNT 216 K/MM3 (134-434); RDW 13.7 % (11.6-15.6); WHITE BLOOD COUNT 10.8 K/mm3 (4.0-10.0)
[2016-10-26] MEDS: LEVOFLOXACIN 750 MG IVPB 150 ML IVPB SCH (09:00)
[2016-10-26] MEDS: LISINOPRIL 5 MG TABLET (FP) PO SCH (09:00)
[2016-10-26] MEDS: POLYETHYLENE GLYCOL 3350 119 GM BTL PO SCH (09:00)
[2016-10-26] MEDS: FERROUS SO4 325 MG TABLET (FP) PO SCH ×2 (09:00→17:29)
[2016-10-26] MEDS ORDERED: Methylnaltrexone Bromide 12 MG/0.6 ML KIT SQ SCH (13:15)
[2016-10-26] MEDS ORDERED: FUROSEMIDE 40 MG/4 ML INJECTABLE VIAL IVPUSH ONE (13:30)
--- NOTE | 2016-10-26 13:30 | MSN ---
Progress Note (SOAP) - Subjective Chief Complaint: fever and L flank pain History of Present Illness: No overnight events. No new complaints. Pt has yet to have a bowel movement. - Current Medications Current Medications: Active Medications Acetaminophen (Tylenol -) 325 mg PO Q6H PRN PRN Reason: FEVER OR PAIN Last Admin: 10/25/16 09:45 Dose: 325 mg Albuterol Sulfate (Ventolin 0.083% Nebulizer Soln -) 1 amp NEB Q6H PRN PRN Reason: SHORT OF BREATH/WHEEZING Last Admin: 10/26/16 00:19 Dose: 1 amp Cyclobenzaprine HCl (Flexeril -) 5 mg PO TID PRN PRN Reason: BACK PAIN Last Admin: 10/25/16 11:13 Dose: 5 mg Docusate Sodium (Colace -) 300 mg PO HS [facility] Last Admin: 10/25/16 22:43 Dose: 300 mg Ferrous Sulfate (Feosol -) 325 mg PO BIDWM [facility] Last Admin: 10/26/16 09:00 Dose: 325 mg Furosemide (Lasix Injection -) 40 mg IVPUSH ONCE ONE Stop: 10/26/16 13:10 Gabapentin (Neurontin -) 300 mg PO TID [facility] Last Admin: 10/26/16 06:30 Dose: 300 mg Levofloxacin (Levaquin 750 Mg Premixed Ivpb -) 150 mls @ 100 mls/hr IVPB DAILY [facility] Last Admin: 10/26/16 09:00 Dose: 100 mls/hr Insulin Aspart (Novolog Vial) 8 units SQ TIDAC [facility] Last Admin: 10/26/16 11:49 Dose: 8 units Insulin Aspart (Novolog Vial Sliding Scale -) 1 vial SQ ACHS [facility] PRN Reason: Protocol Last Admin: 10/26/16 11:23 Dose: Not Given Insulin Detemir (Levemir Vial) 32 units SQ HS [facility] Last Admin: 10/25/16 21:41 Dose: 32 units Lisinopril (Prinivil) 2.5 mg PO DAILY [facility] Last Admin: 10/26/16 09:00 Dose: 2.5 mg Methylnaltrexone [place] (Relistor -) 12 mg SQ DAILY [facility] Metoclopramide HCl (Reglan -) 10 mg PO Q6H PRN PRN Reason: NAUSEA AND/OR VOMITING Montelukast Sodium (Singulair -) 10 mg PO HS [facility] Last Admin: 10/25/16 21:40 Dose: 10 mg Oxycodone HCl (Roxicodone -) 5 mg PO Q6H PRN PRN Reason: PAIN Last Admin: 10/25/16 21:40 Dose: 5 mg Polyethylene Glycol (Miralax (For Daily Use) -) 17 gm PO DAILY [facility] Last Admin: 10/26/16 09:00 Dose: 17 grams Senna (Senna -) 2 tab PO HS PRN PRN Reason: CONSTIPATION Last Admin: 10/25/16 21:41 Dose: 2 tab - Objective Vital Signs: Vital Signs Temperature 98.2 F 10/26/16 09:32 Pulse Rate 90 10/26/16 10:59 Respiratory Rate 18 10/26/16 09:32 Blood Pressure 94/56 10/26/16 09:32 O2 Sat by Pulse Oximetry (%) 100 10/26/16 10:59 Constitutional: Yes: Well Nourished, No Distress, Calm HENT: Yes: Atraumatic, Normocephalic Cardiovascular: Yes: WNL, Regular Rate and Rhythm Respiratory: Yes: Diminished Gastrointestinal: Yes: Soft, Tenderness (LUQ and L flank) Labs Lab Results: CBC, BMP 10/26/16 06:30 10/26/16 06:30 Assessment/Plan 31 y/o female with PMH of DM presented to ER with fever and L flank pain. #Sepsis due to pyelonephritis - repeat urine culture now growing ESBL Klebsiella - on Levaquin day 3; day 7 of total antibiotic therapy - cont. antibiotic therapy for an additional week #Acute hypoxic respiratory distress - likely due to fluid overload - cont. Lasix - pre & post #Acute normocytic anemia - improved - cont. to trend CBC #Constipation - no bowel movement in 4 days - likely due to Percocet - give Relistor #Thrombocytopenia - resolved #IKE - resolved #Hyperkalemia - resolved #DM - improved - cont. Levemir, diabetic diet, ISS
[2016-10-26 13:43] VITALS: BP 113/67; TEMP 98
[2016-10-26 14:05] VITALS: PULSE 108
[2016-10-26] MEDS: oxyCODONE HCL 5 MG TABLET PO PRN (14:40)
[2016-10-26] MEDS: ACETAMINOPHEN 325 MG TABLET (FP) PO PRN (14:40)
--- NOTE | 2016-10-26 15:38 | PN ---
Teaching Attending Note Name of Resident: Fidel Gordon ATTENDING PHYSICIAN STATEMENT I saw and evaluated the patient. I reviewed the resident's note and discussed the case with the resident. I agree with the resident's findings and plan as documented. SUBJECTIVE:states breathing has resolved. no more episodes of dyspnea, flank pain resolved with muscle relaxer. denies CP, SOB, fever, chills, cough, orthopnea, N/V/D OBJECTIVE: Last Vital Signs Temp Pulse Resp BP Pulse Ox 98.0 F 108 H 18 113/67 95 10/26/16 13:42 10/26/16 14:03 10/26/16 09:32 10/26/16 13:42 10/26/16 14:03 General NAD CV S1 S2 RRR no murmur/rub/gallop Lungs slightly decreased at the bases. no crackles or wheezing Abdomen +point tenderness L flank muscle tight. no rebound or guarding no suprapubic tenderness ASSESSMENT AND PLAN: 31 yo F wtih PMH DM presented to the ER with fever and L flank pain 1. Sepsis due to pyelonephritis-afebrile >72H. clinically improved prior to results of repeat UCx which is now growing klebsiella ESBL. switched ceftriaxone to Levaquin. spoke with ID who agrees carbapenem is not warranted at this time as symptomatically improved on ceftriaxone alone. will d/c on levaquin for additional 7 days to complete 2 weeks of antibiotic therapy. 2. L flank pain- likely more musculoskeletal than from pyelonephritis. improved with muscle relaxer. will d/c on few days of flexeril. will warn about side effects of lethargy 2, Acute Hypoxic respiratory distress- likely due to volume overload vs symptomatic anemia. currently saturating 95% on RA. pre and post done and did not desaturate on exertion. clinically appears euvolemix. 3. Acute normocytic anemia- likely dilutional component vs onset of menses. iron studies showing iron defeciency anemia and anemia of chronic disease, hgb electrophoresis pending. hematology consulted, workup per heme. hgb stable. start iron supplementation. 1 unit PRBC this admission. transfuse as needed 4. constipation- no BM >3 days. likely exacerbated by opiates. give relistor. cont miralax, stool softeners 5. thrombocytopenia- likley due to sepsis. now normalized. as per pt she has hx of thrombocytopenia during a previous . spleen is slightly enlarged. 6. IKE- liklely sepsis. resolved. avoid nephrotoxic agents. 7. Hyperkalemia- resolved 8. DM-A1c 8.7. improved. cont levemir. cont diabetic diet. iss, levemir. 9. DVT ppx- EAM, SCD 10. d/c planning home today. expressed need for medication compliance and follow up. needs to f/u with heme
--- NOTE | 2016-10-26 20:00 | PN ---
Progress Note (short form) - Note Progress Note: Patient seen and examined Denies any complaints Last Vital Signs Temp Pulse Resp BP Pulse Ox 98.0 F 108 H 18 113/67 95 10/26/16 13:42 10/26/16 14:03 10/26/16 09:32 10/26/16 13:42 10/26/16 14:03 Cor: RSR, No murmurs, No gallops Lungs: Clear to P&A Abd: Soft, Normal bowel sounds, No organomegaly Ext:No significant edema Skin: No rashes, Integument intact Abnormal Lab Results 10/23/16 10/25/16 10/26/16 01:00 15:30 06:30 WBC RBC Hgb Hct BUN 21 H Random Glucose 147 H D Urine Blood 1+ H Crossmatch See Detail 10/26/16 06:30 WBC 10.8 H RBC 3.12 L Hgb 8.6 L Hct 26.2 L BUN Random Glucose Urine Blood Crossmatch A/P Pt is a 31yo F w/ PMHx of DM2, multiple UTIs who presented with L flank pain, fevers, high WBC, admitted for pyelonephritis Thrombocytopenia: chronic. ? ITP Worsened due to infection improved Anemia --multifactorial anemia of chronic disease +/- iron deficiency. Low iron saturation-4%/nl ferritin Y16--wnreap. LDH--nl folate/TSH --nl
--- NOTE | 2016-10-27 06:56 | DS ---
Physical Exam: SUBJECTIVE: Patient seen and examined at bedside. She continues to improve daily. Afebrile overnight. Back and side pain relieved by flexeril; most likely muscular in origin. OBJECTIVE: Vital Signs Period Temp Pulse Resp BP Sys/Cat Pulse Ox Last 24 Hr 98.0 F-98.2 F 90-108 18-18 94-113/56-67 95-100 PHYSICAL EXAM GENERAL: The patient is awake, alert, and fully oriented, in no acute distress. HEAD: Normal with no signs of trauma. EYES: extraocular movements intact, sclera anicteric, conjunctiva clear. NECK: Trachea midline, full range of motion, supple. LUNGS: Breath sounds equal, clear to auscultation bilaterally, no wheezes, no crackles, no accessory muscle use. HEART: Regular rate and rhythm, S1, S2 without murmur, rub or gallop. ABDOMEN: Soft, nontender, nondistended, normoactive bowel sounds, no guarding, no rebound. EXTREMITIES: 2+ pulses, warm, well-perfused, no edema. NEUROLOGICAL: Cranial nerves II through X grossly intact. Normal speech, gait not observed. PSYCH: Normal mood, normal affect. SKIN: Warm, dry, normal turgor, no rashes or lesions noted. LABS Laboratory Results - last 24 hr 10/23/16 10/26/16 10/26/16 01:00 06:29 06:30 WBC RBC Hgb Hct MCV MCH MCHC RDW Plt Count MPV Sodium 140 Potassium 4.1 Chloride 101 Carbon Dioxide 29 Anion Gap 10 BUN 21 H Creatinine 0.9 POC Glucometer 214 Random Glucose 147 H D Calcium 8.6 Blood Type A POSITIVE Antibody Screen Negative Crossmatch See Detail 10/26/16 10/26/16 10/26/16 06:30 11:19 17:07 WBC 10.8 H RBC 3.12 L Hgb 8.6 L Hct 26.2 L MCV 83.9 MCH 27.6 MCHC 33.0 RDW 13.7 Plt Count 216 MPV 11.0 Sodium Potassium Chloride Carbon Dioxide Anion Gap BUN Creatinine POC Glucometer 136 120 Random Glucose Calcium Blood Type Antibody Screen Crossmatch HOSPITAL COURSE: Date of Admission:10/19/16 The patient is a 31yo F w/ PMHx of DM2 and frequent UTIs who presented complaining of severe, 10/10 L flank pain. She was initially discharged from the ER with Macrobid after presenting with chills, fever and NBNB emesis. She had WBC count and bacteria on UA. At home, the patient continued to have emesis and was unable to take PO antibiotics. She then developed severe L flank pain which propmted her to return to the ER. She described the pain as a pressure, which radiates into her side. The pain is exacerbated by inhaling deeply causes similar pain. She denied dysuria, urinary frequency or urgency, or renal colic pain. There was no history of trauma to her back. In the ED, she had a fever to 101.2, a WBC count of 20 and a heart rate of 103. A repeat UA had 106 WBC in it and a positive leukocyte esterase. A renal ultrasound was within normal limits. The patient was admitted for sepsis secondary to complicated UTI verses pyelonephritis. Urine and blood cultures were sent. She received one dose of zosyn and zofran in the ED, then was treated with reglan, ceftriaxone, IV hydration, percocet and flexeril for pain and her home insulin regimen. SHe began to improve, but continued to spike fevers. A repeat urine culture grew ESBL Klebsiella. Her antibiotics were changed to levaquin. Her hospital course was complicated by a symptomatic anemia and thrombocytopenia requiring 1 unit of PRBCs. Iron studies were sent before the transfusion. Dr. Bernard from hematology was consulted. The patient responded appropriately to the transfusion and her blood counts stabilized. Her hospital course was further complicated by shortness of breath and desaturations at rest, believed to be secondary to the patient's anemia versus fluid overload secondary to aggressive fluid hydration according to sepsis protocol. She was treated with lasix, supplemental oxygen and nebulizers. The patient clinically improved with treatment. Her anemia stabilized, she remained afebrile for over 48 hours. Her WBC trended down. Her back pain got better with flexeril, indicating that it was most likely muscular in origin. She was discharged home on Levaquin 750mg and Flexeril 5mg for pain. She was instructed to take the levaquin every day for 7 days, even if she felt better. She was instructed to only take her flexeril if she experienced pain and was given 2 days worth. She was cautioned against driving or operating heavy machinery while taking the flexeril, as they could make her tired. She was encouraged to follow up with her primary care doctor, Dr. Woody, within one week of going home. She was instructed to call her doctor or return to the ED if she experienced fever, chills or if any of her symptoms got worse. Date of Discharge: 10/27/16 Minutes to complete discharge: 30 Discharge Summary Reason For Visit: DIABETES MELLITUS,HYPERGLYCEMIA,PYELONEPHRITIS, Current Active Problems Hyperglycemia (Acute) Hypovolemia dehydration (Acute) Insulin dependent diabetes mellitus (Acute) Pyelonephritis (Acute) Vomiting (Acute) Condition: Improved - Instructions Diet, Activity, Other Instructions: You were admitted for an infection of the kidneys. You may resume all of your home meds when you get home. We have changed the dose of your long acting insulin, Levemir from 30 units to 32 units. Please take this new dose before bedtime. We are also sending you home on two new medications. One is an antibiotic and is called Levofloxacin. You should take 750mg of this medication every day for 7 days. Please take all of the pills we provide for you, even if you begin to feel better. The second new medication is called Flexeril and is a muscle relaxant. Please take these only if you have back or side pain. Take no more than 3 pills per day. Do not drive or operate heavy machinery when on these medications as they can make you very tired. You should follow up with you primary care provider, Dr. Woody, within one week of going home. If you experience fever, chills or if any of your symptoms get worse, please call your doctor or return to the ED. Referrals: Dinah Woody [Primary Care Provider] - Disposition: HOME - Home Medications Comprehensive Discharge Medication List: Ambulatory Orders Cetirizine HCl [All Day Allergy] 10 mg PO DAILY 10/19/16 Gabapentin 300 mg PO TID 10/19/16 Insulin Lispro [Humalog] 8 unit SQ TID 10/19/16 Lisinopril [Zestril] 2.5 mg PO DAILY 10/19/16 Metformin HCl 500 mg PO HS 10/19/16 Metformin HCl [Glucophage] 1,000 mg PO AM 10/19/16 Cyclobenzaprine HCl [Flexeril -] 5 mg PO TID PRN #6 tablet 10/26/16 Insulin Glargine,Hum.rec.anlog [Lantus Solostar PEN -] 32 units SQ HS #1 dis.syr 10/26/16 Levofloxacin [Levaquin] 750 mg PO DAILY #7 tab 10/26/16 Problem List - Problems (1) Insulin dependent diabetes mellitus Code(s): E11.9 - TYPE 2 DIABETES MELLITUS WITHOUT COMPLICATIONS Z79.4 - LONGTERM (CURRENT) USE OF INSULIN (2) Pyelonephritis Code(s): N12 - TUBULO-INTERSTITIAL NEPHRITIS, NOT SPCF ACUTE OR CHRONIC (3) Vomiting Code(s): R11.10 - VOMITING, UNSPECIFIED Qualifiers: Vomiting type: unspecified Vomiting Intractability: intractable Nausea presence: with nausea Qualified Code(s): R11.2 - Nausea with vomiting , unspecified (4) UTI (urinary tract infection) Code(s): N39.0 - URINARY TRACT INFECTION, SITE NOT SPECIFIED Qualifiers: Urinary tract infection type: site unspecified Hematuria presence: with hematuria Qualified Code(s): N39.0 - Urinary tract infection, site not specified; R31.9 - Hematuria, unspecified This patient is new to me today: No Emergency Visit: Yes ED Registration Date: 10/19/16 Care time: The patient presented to the Emergency Department on the above date and was hospitalized for further evaluation of their emergent condition. Critical Care patient: No - Discharge Referral Referred to [facility] No
--- NOTE | 2016-10-27 13:19 | PATH ---
Surgical Pathology Report Patient Name: ADRYAN BOX Med. Rec. #: [id number] /Age/Gender: 1985 (Age: 31) / F Account: [id number] Location: [address] [place] [address] Taken: 10/24/2016 Received: 10/26/2016 Reported: 10/27/2016 Physicians: Meghana Dasilva M.D. Specimen(s) Received PERIPHERAL BLOOD Clinical History Anemia, leukocytosis, r/o LPD Final Diagnosis FLOW CYTOMETRY PERFORMED AND INTERPRETED AT [facility], [place] ([id number]) SHOWED THE FOLLOWING: INTERPRETATION: No clonal lymphoid expansions detected. Phenotype: Lymphocytes include polyclonal B-cells, NK-cells and immunophenotypically normal CD4+ and CD8+ T-cells. No evidence of an atypical B-cell or T-cell population is detected. Cytomorphology: Smears from whole sample show no increase in myeloblasts or atypical lymphocytes. Electronically Signed Gordy Goddard M.D. Gross Description Received are 2 green top tubes of peripheral blood which are sent to [facility]. /10/26/2016 saudi10/26/2016
[2016-10-27 16:23] LABS: Hgb A2 2.4 % (0.7-3.1)
== END 2016-10-26 19:54 | disposition home or self-care (01) | DRG 720 ==
LOC: JER 15:55 → JERBED 19:23 → OBSVTOIN 19:45 → J6S 22:54
PROVIDERS: ADMIT Internal Medicine; ATTEND Internal Medicine
PROC: 30233N1 Transfusion of Nonautologous Red Blood Cells into Peripheral Vein, Percutaneous Approach (ICD-10-PCS; principal; 2016-10-23)
DX: A41.9 Sepsis, unspecified organism (principal); R11.2 Nausea with vomiting, unspecified; E86.0 Dehydration; E86.1 Hypovolemia; E10.69 Type 1 diabetes mellitus with other specified complication; E10.65 Type 1 diabetes mellitus with hyperglycemia; N17.9 Acute kidney failure, unspecified; E87.5 Hyperkalemia; D69.6 Thrombocytopenia, unspecified; N12 Tubulo-interstitial nephritis, not specified as acute or chronic; E10.40 Type 1 diabetes mellitus with diabetic neuropathy, unspecified; K59.09 Other constipation; B96.1 Klebsiella pneumoniae [K. pneumoniae] as the cause of diseases classified elsewhere; N39.0 Urinary tract infection, site not specified; R06.09 Other forms of dyspnea; D63.8 Anemia in other chronic diseases classified elsewhere; E10.22 Type 1 diabetes mellitus with diabetic chronic kidney disease; N18.9 Chronic kidney disease, unspecified; Z89.421 Acquired absence of other right toe(s); Z79.4 Long term (current) use of insulin
CPT/HCPCS: 36415; 36430; 36511; 71010-TC; 76775-TC; 80048; 80053; 81003; 81015; 82607; 82728; 82747; 83021; 83036; 83540; 83550; 83605; 83615; 84439; 84443; 84466; 84703; 85014; 85025; 85027; 85044; 85379; 85660; 86850; 86900; 86901; 86922; 87040; 87086; 87186; 88300-TC; 93005; 93010; 93306-TC; 93970-TC; 94640; 94761; 97116-GP; 97161-GP; 99285-25; G0378; P9038; P9058

== ENCOUNTER 2017-01-09 20:01 | Emergency (ER) | payer OTHER ==
[2017-01-09 20:17] VITALS: TEMP 98.5; BMI 26.3
--- NOTE | 2017-01-09 21:02 | PDOC ---
History of Present Illness - General Chief Complaint: Vomiting/Diarrhea Stated Complaint: FATIGUE Time Seen by Provider: 01/09/17 20:27 History Source: Patient Exam Limitations: No Limitations - History of Present Illness Initial Comments: 01/09/17 21:36 31-year-old female with a history of IDDM presents to the emergency department complaining of fever/99.9, diarrhea 2 days, sore throat 2 days but denies chills, nausea/vomiting, headache, dizziness, lightheadedness, facial pain, nasal congestion, neck pain/stiffness, back pains, chest pain, shortness of breath, abdominal pains, ext numbness or tingling sensation. Patient also states of a skin infection to her right second toe 2 days. Timing/Duration: other (x2d) Past History - Past Medical History Allergies/Adverse Reactions: Allergies Allergy/AdvReac Type Severity Reaction Status Date / Time No Known Allergies Allergy Verified 01/09/17 20:17 Home Medications: Ambulatory Orders Cetirizine HCl [All Day Allergy] 10 mg PO DAILY 10/19/16 Gabapentin 300 mg PO TID 10/19/16 Insulin Lispro [Humalog] 8 unit SQ TID 10/19/16 Lisinopril [Zestril] 2.5 mg PO DAILY 10/19/16 Metformin HCl 500 mg PO HS 10/19/16 Metformin HCl [Glucophage] 1,000 mg PO AM 10/19/16 Cyclobenzaprine HCl [Flexeril -] 5 mg PO TID PRN #6 tablet 10/26/16 Insulin Glargine,Hum.rec.anlog [Lantus Solostar PEN -] 32 units SQ HS #1 dis.syr 10/26/16 Levofloxacin [Levaquin] 750 mg PO DAILY #7 tab 10/26/16 Amoxicillin/Potassium Clav [Augmentin 875-125 Tablet] 1 each PO BID #14 tablet 01/10/17 COPD: No Diabetes: Yes (juvenile insulin dependent) Disorders: Yes (UTI's) HTN: Yes Hypercholesterolemia: Yes - Immunization History Immunization Up to Date: No - Suicide/Smoking/Psychosocial Hx Smoking History: Never smoked Have you smoked in the past 12 months: No Hx Alcohol Use: No Drug/Substance Use Hx: No Substance Use Type: None Review of Systems - Review of Systems Able to Perform ROS?: Yes Comments:: 01/09/17 21:38 CONSTITUTIONAL: +fever/"99.9" Absent: chills, diaphoresis, generalized weakness, malaise, loss of appetite HEENT: +throat pain Absent: rhinorrhea, nasal congestion, throat swelling, difficulty swallowing, mouth swelling, ear pain, eye pain, visual Changes CARDIOVASCULAR: Absent: chest pain, loss of consciousness, palpitations, irregular heart rate, peripheral edema RESPIRATORY: Absent: cough, shortness of breath, dyspnea with exertion, orthopnea, wheezing, stridor, hemoptysis GASTROINTESTINAL: Absent: abdominal pain, abdominal distension, nausea, vomiting, diarrhea, constipation, melena, hematochezia GENITOURINARY: Absent: dysuria, frequency, urgency, hesitancy, hematuria, flank pain, genital pain MUSCULOSKELETAL: Absent: myalgia, arthralgia, joint swelling SKIN: Absent: rash, itching, pallor HEMATOLOGIC/IMMUNOLOGIC: Absent: easy bleeding, easy bruising, lymphadenopathy, frequent infections Is the patient limited Thai proficient: No *Physical Exam - Vital Signs Last Vital Signs Temp Pulse Resp BP Pulse Ox 98.5 F 104 H 20 122/79 99 01/09/17 20:14 01/09/17 20:14 01/09/17 20:14 01/09/17 20:14 01/09/17 20:14 - Physical Exam Comments: 01/09/17 21:38 GENERAL: Well developed, well nourished. Awake and alert. No acute distress. HEENT: Normocephalic, atraumatic. PERRLA, EOMI. No conjunctival pallor. Sclera are non- icteric. Moist mucous membranes. Oropharynx is clear. NECK: Supple. Full ROM. No JVD. Carotid pulses 2+ and symmetric, without bruits. No thyromegaly. No lymphadenopathy. CARDIOVASCULAR: Regular rate and rhythm. No murmurs, rubs, or gallops. Distal pulses are 2+ and symmetric. PULMONARY: No evidence of respiratory distress. Lungs clear to auscultation bilaterally. No wheezing, rales or rhonchi. ABDOMINAL: Soft. Non-tender. Non-distended. No rebound or guarding. No organomegaly. Normoactive bowel sounds. MUSCULOSKELETAL Normal range of motion at all joints. No bony deformities or tenderness. No CVA tenderness. EXTREMITIES: No cyanosis. No clubbing. No edema. No calf tenderness. SKIN: Warm and dry. Normal capillary refill. No rashes. No jaundice. NEUROLOGICAL: Alert, awake, appropriate. Cranial nerves 2-12 intact. No deficits to light touch and temperature in face, upper extremities and lower extremities. No motor deficits in the in face, upper extremities and lower extremities. Normoreflexic in the upper and lower extremities. Normal speech. Toes are down- going bilaterally. Gait is normal without ataxia. PSYCHIATRIC: Cooperative. Good eye contact. Appropriate mood and affect. ED Treatment Course - LABORATORY CBC & Chemistry Diagram: 01/09/17 21:20 01/09/17 21:20 *DC/Admit/Observation/Transfer Diagnosis at time of Disposition: Insulin dependent diabetes mellitus, Blister, Pharyngitis - Discharge Dispostion Disposition: HOME Condition at time of disposition: Stable Admit: No - Prescriptions Prescriptions: Amoxicillin/Potassium Clav [Augmentin 875-125 Tablet] 1 each PO BID #14 tablet - Referrals Referrals: Dinah Woody [Primary Care Provider] - - Patient Instructions Additional Instructions: Return to the ER for severe/persistent/worsening symptoms MUST FOLLOW UP WITH YOUR PHYSICIAN - Post Discharge Activity
[2017-01-09] MEDS ORDERED: SODIUM CHLORIDE 1,000 ML IV STA ×2 (21:04→22:29)
[2017-01-09 21:34] LABS: BASOPHIL 0.3 % (0-2.0); EOSINOPHIL 4.4 % (0-4.5); MCH 26.8 pg (25.7-33.7); MCHC 32.7 g/dl (32.0-36.0); MEAN CELL VOLUME 82.1 fl (80-96); NEUTROPHILS 72.4 % (42.8-82.8); PLATELET COUNT 103 K/MM3 (134-434); RDW 14.4 % (11.6-15.6); WHITE BLOOD COUNT 13.5 K/mm3 (4.0-10.0)
[2017-01-09 22:06] LABS: ALBUMIN 3.6 g/dl (3.4-5.0); ANION GAP 8 (8-16); CALCIUM 8.3 mg/dL (8.5-10.1); CO2 22 mmol/L (21-32)
[2017-01-09 22:09] LABS: ALK PHOS 76 U/L (45-117); BILIRUBIN,TOTAL 0.3 mg/dL (0.2-1.0); CREATININE 1.3 mg/dL (0.55-1.02); SGOT/AST 6 U/L (15-37); SGPT/ALT 11 U/L (12-78); TOT PROT 7.6 g/dl (6.4-8.2)
--- NOTE | 2017-01-09 22:09 | PDOC ---
*Physical Exam - Vital Signs Last Vital Signs Temp Pulse Resp BP Pulse Ox 98.5 F 104 H 20 122/79 99 01/09/17 20:14 01/09/17 20:14 01/09/17 20:14 01/09/17 20:14 01/09/17 20:14 ED Treatment Course - LABORATORY CBC & Chemistry Diagram: 01/09/17 21:20 01/09/17 21:20 - ADDITIONAL ORDERS Additional order review: 01/09/17 21:20 Group A Strep Rapid Antigen - Final Throat 01/09/17 21:20 RBC 3.86 D MCV 82.1 MCHC 32.7 RDW 14.4 MPV 13.0 H D Neutrophils % 72.4 Lymphocytes % 16.2 D Monocytes % 6.7 Eosinophils % 4.4 Basophils % 0.3 D - Medications Given in the ED: ED Medications Discontinued Medications Generic Name Dose Route Start Last Admin Trade Name Freq PRN Reason Stop Dose Admin Sodium Chloride 1,000 mls @ 1,000 mls/hr 01/09/17 21:04 01/09/17 21:47 Normal Saline - IV 01/09/17 22:03 1,000 mls/hr ASDIR STA Administration Medical Decision Making - Medical Decision Making 01/09/17 22:08 Pt seen by the Advanced Practice Provider under my direct supervision Ancillary studies reviewed I agree with plan as outlined by the Advanced Practice Provider SHANICE Brown *DC/Admit/Observation/Transfer - Referrals Referrals: Dinah Woody [Primary Care Provider] - - Patient Instructions - Post Discharge Activity
[2017-01-09 22:12] LABS: GLUCOSE,RANDOM 307 mg/dL (74-106)
[2017-01-10] MEDS ORDERED: AMOX TR/POT CLAV 875MG/125MG TABLETS (FP) PO ONE (00:18)
[2017-01-10] MEDS ORDERED: METOCLOPRAMIDE HCL INJECTION 10 MG/2 ML VIAL IVPUSH ONE (00:18)
[2017-01-10] MEDS ORDERED: METOCLOPRAMIDE HCL INJECTION 10 MG/2 ML VIAL ONE (00:20)
[2017-01-10] MEDS ORDERED: AMOX TR/POT CLAV 875MG/125MG TABLETS (FP) ONE (00:20)
[2017-01-10 02:08] VITALS: BP 129/74; PULSE 82
== END 2017-01-10 02:08 | disposition home or self-care (01) ==
LOC: JER 20:01
PROC: 3E0337Z Introduction of Electrolytic and Water Balance Substance into Peripheral Vein, Percutaneous Approach (ICD-10-PCS; principal; 2017-01-09)
PROC: 3E033GC Introduction of Other Therapeutic Substance into Peripheral Vein, Percutaneous Approach (ICD-10-PCS; 2017-01-09)
DX: J02.9 Acute pharyngitis, unspecified (principal); E10.9 Type 1 diabetes mellitus without complications; Z79.4 Long term (current) use of insulin; Z79.84 Long term (current) use of oral hypoglycemic drugs; I10 Essential (primary) hypertension; E78.00 Pure hypercholesterolemia, unspecified; S90.424A Blister (nonthermal), right lesser toe(s), initial encounter; X58.XXXA Exposure to other specified factors, initial encounter; Y93.89 Activity, other specified; Y92.89 Other specified places as the place of occurrence of the external cause
CPT/HCPCS: 36415; 80053; 85025; 87070; 87205; 87430; 96360; 96361; 96374; 99283-25

== ENCOUNTER 2018-04-05 23:32 | Emergency (ER) | payer OTHER ==
[2018-04-05 23:45] VITALS: TEMP 98.5; BMI 28.2
--- NOTE | 2018-04-06 00:38 | PDOC ---
History of Present Illness - General Chief Complaint: Back Pain Stated Complaint: BACK PAIN HEADACE Time Seen by Provider: 04/06/18 00:33 History Source: Patient - History of Present Illness Initial Comments: 04/06/18 02:34 32-year-old NIDDM female complaining of generalized body aches, headache, chest discomfort and high blood sugar reading at home. denies fever/ chills, NVD , abdominal pain. Patient reports that she did not take a losartan dose yesterday. Past History - Past Medical History Allergies/Adverse Reactions: Allergies Allergy/AdvReac Type Severity Reaction Status Date / Time No Known Allergies Allergy Verified 04/05/18 23:45 Home Medications: Ambulatory Orders Cetirizine HCl [All Day Allergy] 10 mg PO DAILY 10/19/16 Gabapentin 300 mg PO TID 10/19/16 Insulin Lispro [Humalog] 8 unit SQ TID 10/19/16 Lisinopril [Zestril] 2.5 mg PO DAILY 10/19/16 Metformin HCl [Glucophage] 500 mg PO BID 10/19/16 Insulin Glargine,Hum.rec.anlog [Lantus Solostar PEN -] 42 units SQ HS 04/06/18 COPD: No Diabetes: Yes (juvenile insulin dependent) Disorders: Yes (UTI's) HTN: Yes Hypercholesterolemia: Yes - Immunization History Immunization Up to Date: No - Suicide/Smoking/Psychosocial Hx Smoking History: Never smoked Have you smoked in the past 12 months: No Information on smoking cessation initiated: No Hx Alcohol Use: No Drug/Substance Use Hx: No Substance Use Type: None Review of Systems - Review of Systems Able to Perform ROS?: Yes Is the patient limited Kazakh proficient: No Constitutional: Yes: Other (bodyache). No: Symptoms Reported, See HPI, Chills, Diaphoresis, Fever, Loss of Appetite, Malaise, Night Sweats, Weakness, Weight Stable, Unintentional Wgt. Loss, Unexplained wgt Loss Neurological: Yes: Headache. No: Symptoms reported, See HPI, Numbness, Paresthesia, Pre-Existing Deficit, Seizure, Tingling, Tremors, Weakness, Unsteady Gait, Ataxia, Dizziness, Other *Physical Exam - Vital Signs Last Vital Signs Temp Pulse Resp BP Pulse Ox 98.5 F 93 H 18 179/97 H 100 04/05/18 23:42 04/05/18 23:42 04/05/18 23:42 04/05/18 23:42 04/05/18 23:42 - Physical Exam General Appearance: Yes: Appropriately Dressed Respiratory/Chest: positive: Lungs Clear, Normal Breath Sounds Cardiovascular: positive: Regular Rate Gastrointestinal/Abdominal: positive: Normal Bowel Sounds, Soft Musculoskeletal: positive: Normal Inspection. negative: Vertebral Tenderness Extremity: positive: Normal Inspection, Normal Range of Motion Integumentary: positive: Normal Color, Dry, Warm Neurologic: positive: Fully Oriented, Alert, Normal Mood/Affect Moderate Sedation - Procedure Monitoring Vital Signs: Procedure Monitoring Vital Signs Temperature 98.5 F 04/05/18 23:42 Pulse Rate 93 H 04/05/18 23:42 Respiratory Rate 18 04/05/18 23:42 Blood Pressure 179/97 H 04/05/18 23:42 O2 Sat by Pulse Oximetry (%) 100 04/05/18 23:42 Heart Score/ECG Review - History History: Slightly suspicious - Electrocardiogram EKG: Normal - Age Age: </= 45 - Risk Factors Risk Factors Heart Score: Yes Hx Hypertension, Yes Hx Diabetes Based on the list above the patient has:: 1-2 risk factors - Troponin Troponin: </= normal limit - Score Heart Score - Total: 1 - ECG Intrepretation Rhythm: Regular Rhythm Comment:: 04/06/18 02:48 NSR: 90bpm ED Treatment Course - LABORATORY CBC & Chemistry Diagram: 04/06/18 01:20 04/06/18 01:20 Medical Decision Making - Medical Decision Making 04/06/18 05:32 patient reports feeling better will naveen serrano *DC/Admit/Observation/Transfer Diagnosis at time of Disposition: Hyperglycemia Headache Qualifiers: Headache type: tension-type Headache chronicity pattern: acute headache Intractability: not intractable Qualified Code(s): G44.209 - Tension-type headache, unspecified, not intractable - Referrals Referrals: Dinah Woody [Primary Care Provider] - - Patient Instructions - Post Discharge Activity
--- NOTE | 2018-04-06 00:45 | PDOC ---
*Physical Exam - Vital Signs Last Vital Signs Temp Pulse Resp BP Pulse Ox 98.5 F 93 H 18 179/97 H 100 04/05/18 23:42 04/05/18 23:42 04/05/18 23:42 04/05/18 23:42 04/05/18 23:42 ED Treatment Course - LABORATORY CBC & Chemistry Diagram: 04/06/18 01:20 04/06/18 01:20 Medical Decision Making - Medical Decision Making 04/06/18 00:44 Patient seen by the advanced practice provider under my direct supervision. Ancillary testing reviewed as necessary. I agree with plan as outlined by the advanced practice provider. *DC/Admit/Observation/Transfer Diagnosis at time of Disposition: Hyperglycemia Headache Qualifiers: Headache type: tension-type Headache chronicity pattern: acute headache Intractability: not intractable Qualified Code(s): G44.209 - Tension-type headache, unspecified, not intractable - Discharge Dispostion Disposition: HOME - Referrals Referrals: Dinah Woody [Primary Care Provider] - - Patient Instructions - Post Discharge Activity
[2018-04-06 01:28] LABS: URINE APPEARANCE CLEAR; URINE BILIRUBIN NEGATIVE (<2.0 mg/dL); URINE COLOR STRAW; URINE GLUCOSE (UA) 3+ (NEGATIVE); URINE KETONE NEGATIVE (NEGATIVE); URINE LEUK ESTERASE NEGATIVE (NEGATIVE); URINE NITRITE NEGATIVE (NEGATIVE); URINE PROTEIN NEGATIVE (NEGATIVE); URINE UROBILINOGEN NEGATIVE mg/dL (0.2-1.0)
[2018-04-06 01:41] LABS: VENOUS PC02 49.5 mmHg (38-52); VENOUS PH 7.33 (7.32-7.42); VENOUS PO2 34.9 mmHg (28-48)
[2018-04-06 01:53] LABS: INR 0.92 (0.83-1.09); PROTHROMBIN TIME (PATIENT) 10.8 SEC (9.7-13.0)
[2018-04-06 01:54] LABS: BASO % 0.5 % (0-2.0); EOS % 3.2 % (0-4.5); HEMATOCRIT 35.7 % (32.4-45.2); HEMOGLOBIN 12.3 GM/dL (10.7-15.3); MCH 28.6 pg (25.7-33.7); MCHC 34.6 g/dl (32.0-36.0); MEAN CELL VOLUME 82.6 fl (80-96); MONO % 6.1 % (3.8-10.2); NEUT % 58.2 % (42.8-82.8); RBC 4.32 M/mm3 (3.60-5.2); RDW 13.5 % (11.6-15.6); WHITE BLOOD COUNT 7.2 K/mm3 (4.0-10.0)
[2018-04-06] MEDS ORDERED: ACETAMINOPHEN 325 MG TABLET (FP) PO ONE (01:56)
[2018-04-06] MEDS ORDERED: ACETAMINOPHEN 325 MG TABLET (FP) ONE (02:12)
[2018-04-06 02:18] LABS: ALBUMIN 3.5 g/dl (3.4-5.0); ALK PHOS 96 U/L (45-117); ANION GAP 7 MMOL/L (8-16); BILIRUBIN,TOTAL 0.1 mg/dL (0.2-1); BLOOD UREA NITROGEN 22 mg/dL (7-18); CALCIUM 8.3 mg/dL (8.5-10.1); CHLORIDE 103 mmol/L (98-107); CO2 27 mmol/L (21-32); CREATININE 1.1 mg/dL (0.55-1.3); MAGNESIUM 2.2 mg/dL (1.8-2.4); POTASSIUM 4.3 mmol/L (3.5-5.1); SGOT/AST 16 U/L (15-37); SGPT/ALT 20 U/L (13-61); SODIUM 137 mmol/L (136-145); TOT PROT 7.3 g/dl (6.4-8.2)
[2018-04-06 02:20] LABS: GLUCOSE,RANDOM 417 mg/dL (74-106)
[2018-04-06] MEDS ORDERED: SODIUM CHLORIDE 0.9% 500 ML INFUS.BAG IV ONE (02:21)
[2018-04-06] MEDS ORDERED: LOSARTAN POTASSIUM 25 MG TABLET PO ONE (02:23)
[2018-04-06 02:46] LABS: PLATELET COUNT 79 K/MM3 (134-434)
[2018-04-06 02:47] LABS: MEAN PLT VOLUME 12.8 fl (7.5-11.1); PLATELET ESTIMATE DECREASED
[2018-04-06] MEDS ORDERED: KETOROLAC TROMETHAMINE 30 MG/1 ML VIAL IVPUSH ONE (03:12)
[2018-04-06] MEDS ORDERED: KETOROLAC TROMETHAMINE 30 MG/1 ML VIAL ONE (03:15)
[2018-04-06] MEDS ORDERED: SODIUM CHLORIDE 1,000 ML IV STA (03:29)
[2018-04-06] MEDS ORDERED: INSULIN REGULAR HUMAN 100 UNITS/ML *VIAL SQ ONE (03:48)
[2018-04-06] MEDS ORDERED: INSULIN REGULAR HUMAN 100 UNITS/ML *VIAL ONE (03:57)
[2018-04-06 06:18] VITALS: BP 119/84; PULSE 89
--- NOTE | 2018-04-07 02:35 | EKG ---
Test Reason : Blood Pressure : / mmHG Vent. Rate : 090 BPM Atrial Rate : 090 BPM P-R Int : 142 ms QRS Dur : 078 ms QT Int : 356 ms P-R-T Axes : 029 024 006 degrees QTc Int : 435 ms NORMAL SINUS RHYTHM POSSIBLE LEFT ATRIAL ENLARGEMENT SEPTAL INFARCT , AGE UNDETERMINED ABNORMAL ECG WHEN COMPARED WITH ECG OF 19-OCT-2016 20:55, PREMATURE VENTRICULAR COMPLEXES ARE NO LONGER PRESENT SEPTAL INFARCT IS NOW PRESENT Confirmed by CARLOS ARORA, VENKATESH ([id number]) on 04/07/2018 2:35:38 AM Referred By: Confirmed By:VENKATESH GONZALEZ MD
== END 2018-04-06 06:33 | disposition home or self-care (01) ==
LOC: JER 23:32
PROC: 3E0337Z Introduction of Electrolytic and Water Balance Substance into Peripheral Vein, Percutaneous Approach (ICD-10-PCS; principal; 2018-04-05)
PROC: 3E0333Z Introduction of Anti-inflammatory into Peripheral Vein, Percutaneous Approach (ICD-10-PCS; 2018-04-05)
PROC: 3E013VG Introduction of Insulin into Subcutaneous Tissue, Percutaneous Approach (ICD-10-PCS; 2018-04-05)
DX: E10.65 Type 1 diabetes mellitus with hyperglycemia (principal); Z79.4 Long term (current) use of insulin; G44.209 Tension-type headache, unspecified, not intractable
CPT/HCPCS: 36415; 80053; 81003; 82803; 82962; 83735; 84484; 84703; 85025; 85610; 93005; 93010; 96361; 96372; 96374; 99284-25; J7030

== ENCOUNTER 2023-03-31 18:12 | Inpatient (IN) | payer OTHER ==
[2023-03-31 19:15] VITALS: BMI 26.6
[2023-03-31] MEDS ORDERED: KETOROLAC TROMETHAMINE 15 MG/ML VIAL ONE (19:31)
[2023-03-31] MEDS: LACTATED RINGERS SOLUTION 1000 ML INFUS.BAG IV ONE (20:54)
[2023-03-31] MEDS: ACETAMINOPHEN 1000 MG/100 ML BAG IVPB ONE (20:54)
[2023-03-31] MEDS ORDERED: ACETAMINOPHEN INJECTION 100 ML IVPB ONE (20:56)
[2023-03-31 21:01] LABS: HEMATOCRIT 30.5 % (32.4-45.2); MCH 26.2 pg (25.7-33.7); MCHC 32.9 g/dl (32.0-36.0); MEAN CELL VOLUME 79.5 fl (80-96); MEAN PLT VOLUME 11.4 fl (7.5-11.1); PLATELET COUNT 143 10^3/uL (134-434); RBC 3.83 M/mm3 (3.60-5.2); RDW 15.6 % (11.6-15.6)
[2023-03-31 21:07] LABS: VENOUS BASE EXCESS -3.8 mmol/L (-2-2); VENOUS O2 SATURATION 58.2 % (70-80); VENOUS PCO2 45.2 mmHg (38-52); VENOUS PH 7.312 (7.310-7.410)
[2023-03-31 21:09] LABS: INR 1.35 (0.83-1.09); PROTHROMBIN TIME (PATIENT) 15.6 SEC (9.7-13.0)
[2023-03-31 21:12] LABS: ACTIVATED PTT 30.1 SECONDS (25.2-36.5)
[2023-03-31 21:23] LABS: CHLORIDE 94 mmol/L (98-107); SODIUM 128 mmol/L (136-145)
[2023-03-31 21:25] LABS: ALBUMIN 2.6 g/dl (3.4-5.0); BLOOD UREA NITROGEN 46.6 mg/dL (7-18); CALCIUM 8.4 mg/dL (8.5-10.1); CO2 22 mmol/L (21-32); GLUCOSE,RANDOM 239 mg/dL (74-106); MAGNESIUM 1.8 mg/dL (1.8-2.4)
[2023-03-31 21:28] LABS: CREATININE 3.3 mg/dL (0.55-1.3); SGOT/AST 13 U/L (15-37)
[2023-03-31 21:29] LABS: SGPT/ALT 9 U/L (13-61)
[2023-03-31 21:30] LABS: BILIRUBIN,TOTAL 0.4 mg/dL (0.2-1); TOT PROT 7.1 g/dl (6.4-8.2)
[2023-03-31 21:31] LABS: ALK PHOS 134 U/L (45-117)
[2023-03-31 21:37] LABS: ANION GAP 11 mmol/L (4-13); POTASSIUM 6.1 mmol/L (3.5-5.1)
[2023-03-31] MEDS: SODIUM CHLORIDE 0.9% 500 ML INFUS.BAG IV ONE ×3 (22:20→22:21)
[2023-03-31] MEDS: CALCIUM GLUCONATE 10% - 1,000 MG/10 ML VIAL IVPB ONE (22:20)
[2023-03-31] MEDS: INSULIN REGULAR HUMAN 100 UNITS/ML *VIAL IVPUSH ONE (22:20)
[2023-03-31] MEDS: PIPERACILLIN/TAZOB 4.5 GM 4.5 GM in DEXTROSE 5%-WATER 100 ML IVPB ONE (22:22)
[2023-03-31] MEDS ORDERED: CALCIUM GLUCONATE 10% - 1,000 MG/10 ML VIAL ONE (22:22)
[2023-03-31] MEDS ORDERED: PIPERACILLIN/TAZOB 4.5 GM 4.5 GM/100 ML BAG IVPB ONE (22:23)
[2023-03-31 22:38] LABS: EPI CELLS >36 /uL (0-25.1); HYALINE CASTS 1 /uL (0-3.1); PH,URINE 5.5 (5.0-8.0); URINE APPEARANCE TURBID; URINE BACTERIA >9,000 /uL (0-1359); URINE BILIRUBIN NEGATIVE (NEGATIVE); URINE COLOR YELLOW; URINE GLUCOSE (UA) NEGATIVE (NEGATIVE); URINE KETONE NEGATIVE (NEGATIVE); URINE LEUK ESTERASE 3+ (NEGATIVE); URINE NITRITE NEGATIVE (NEGATIVE); URINE PROTEIN 3+ (NEGATIVE); URINE UROBILINOGEN 0.2 mg/dL (0.2-1.0); URINE WBC 6948 /uL (0-25.8)
[2023-03-31 23:01] LABS: URINE RBC 531.9 /uL (0-23.9); YEAST NEGATIVE (NEGATIVE)
[2023-03-31 23:25] LABS: ANISOCYTOSIS 1+; MACROCYTOSIS 0
[2023-04-01 00:58] LABS: HCG,QUALITATIVE URINE Negative
[2023-04-01 01:03] LABS: CALCIUM 7.7 mg/dL (8.5-10.1)
[2023-04-01 01:04] LABS: BLOOD UREA NITROGEN 45.9 mg/dL (7-18)
[2023-04-01 01:07] LABS: CREATININE 3.2 mg/dL (0.55-1.3)
[2023-04-01 01:21] LABS: LACTIC ACID 2.2 mmol/L (0.4-2.0)
[2023-04-01] MEDS ORDERED: PIPERACILLIN/TAZOB 4.5 GM 4.5 GM in DEXTROSE 5%-WATER 100 ML IVPB SCH ×2 (03:00→04:00)
[2023-04-01] MEDS ORDERED: PIPERACILLIN/TAZOB 2.25 GM 2.25 GM in DEXTROSE 5%-WATER - 50 ML IVPB SCH (04:00)
[2023-04-01] MEDS: MEROPENEM 500 MG in DEXTROSE 5%-WATER 100 ML IVPB ONE (05:19)
[2023-04-01] MEDS ORDERED: MEROPENEM 500 MG VIAL (RESTRICTED TO ID) IVPB ONE (05:20)
[2023-04-01] MEDS: VANCOMYCIN PREMIX 1.5 GM 1,500 MG/300 ML BAG IVPB ONE (07:11)
[2023-04-01] MEDS: HEPARIN NA (PORCINE) 5,000 UNITS/ML 1ML VIAL SQ SCH (07:11)
[2023-04-01] MEDS: INSULIN ASPART SLIDING SCALE (NOVOLOG) 1 VIAL SQ SCH (07:12)
[2023-04-01] MEDS ORDERED: HEPARIN NA (PORCINE) 5,000 UNITS/ML 1ML VIAL ONE ×2 (07:25→23:57)
[2023-04-01 07:35] LABS: HEMATOCRIT 26.5 % (32.4-45.2); HEMOGLOBIN 8.5 GM/dL (10.7-15.3); MCH 25.9 pg (25.7-33.7); MEAN PLT VOLUME 12.4 fl (7.5-11.1); PLATELET COUNT 120 10^3/uL (134-434); RBC 3.27 M/mm3 (3.60-5.2); RDW 15.2 % (11.6-15.6); WHITE BLOOD COUNT 21.2 K/mm3 (4.0-10.0)
[2023-04-01 07:51] LABS: POTASSIUM 5.2 mmol/L (3.5-5.1)
[2023-04-01 07:55] LABS: ALBUMIN 2.1 g/dl (3.4-5.0); CALCIUM 7.7 mg/dL (8.5-10.1); MAGNESIUM 1.8 mg/dL (1.8-2.4)
[2023-04-01 07:59] LABS: CREATININE 3.2 mg/dL (0.55-1.3); PHOSPHOROUS 3.7 mg/dL (2.5-4.9)
[2023-04-01 08:00] LABS: BILIRUBIN,TOTAL 0.4 mg/dL (0.2-1)
[2023-04-01 08:01] LABS: IRON SERUM < 5 ug/dL (50-175); TOTAL IRON BINDING CAPACITY 200 ug/dL (250-450)
[2023-04-01 09:05] LABS: ANISOCYTOSIS 0; MACROCYTOSIS 0
[2023-04-01] MEDS ORDERED: SODIUM ZIRCONIUM CYCLOSILICATE (LOKELMA) 5 GM PACKET ONE (10:40)
[2023-04-01] MEDS: SODIUM CHLORIDE 1,000 ML IV SCH ×2 (10:50→17:00)
[2023-04-01] MEDS: SODIUM ZIRCONIUM CYCLOSILICATE (LOKELMA) 5 GM PACKET PO ONE (10:52)
[2023-04-01] MEDS: LACTATED RINGERS SOLUTION 1,000 ML/1,000 ML INFUS.BAG IV SCH (10:56)
[2023-04-01] MEDS: SODIUM ZIRCONIUM CYCLOSILICATE (LOKELMA) 5 GM PACKET PO SCH (11:00)
[2023-04-01] MEDS ORDERED: ACETAMINOPHEN INJECTION 100 ML IVPB ONE (14:29)
[2023-04-01] MEDS: ACETAMINOPHEN 1000 MG/100 ML BAG IVPB PRN (14:30)
[2023-04-01] MEDS ORDERED: INSULIN (NOVOLOG) ASPART 100 UNITS/ML 10ML VIAL ONE ×2 (15:09→18:46)
[2023-04-01] MEDS ORDERED: MEROPENEM 1 GM VIAL (RESTRICTED TO ID) IVPB ONE (16:41)
[2023-04-01] MEDS: SODIUM CHLORIDE 500 ML IV STA (17:05)
[2023-04-01] MEDS: MEROPENEM 1 GM in DEXTROSE 5%-WATER 100 ML IVPB SCH ×2 (17:10→17:31)
[2023-04-02] MEDS: MEROPENEM 1 GM in DEXTROSE 5%-WATER 100 ML IVPB SCH (06:25)
[2023-04-02] MEDS ORDERED: VANCOMYCIN HCL 1,500 MG in DEXTROSE 5%-WATER - 500 ML IVPB SCH (08:00)
[2023-04-02 08:47] LABS: BASO % 0.4 % (0-2.0); EOS % 0.6 % (0-4.5); HEMATOCRIT 22.2 % (32.4-45.2); HEMOGLOBIN 7.2 GM/dL (10.7-15.3); LYMPH % 8.9 % (8-40); MCH 25.8 pg (25.7-33.7); MCHC 32.5 g/dl (32.0-36.0); MEAN CELL VOLUME 79.5 fl (80-96); MEAN PLT VOLUME 11.1 fl (7.5-11.1); MONO % 6.1 % (3.8-10.2); PLATELET COUNT 121 10^3/uL (134-434); RBC 2.79 M/mm3 (3.60-5.2); RDW 15.4 % (11.6-15.6); WHITE BLOOD COUNT 13.1 K/mm3 (4.0-10.0)
[2023-04-02 09:42] LABS: ALBUMIN 1.7 g/dl (3.4-5.0); BILIRUBIN,TOTAL 0.3 mg/dL (0.2-1); BLOOD UREA NITROGEN 43.4 mg/dL (7-18); CALCIUM 7.9 mg/dL (8.5-10.1); CREATININE 2.4 mg/dL (0.55-1.3); MAGNESIUM 1.7 mg/dL (1.8-2.4); PHOSPHOROUS 2.4 mg/dL (2.5-4.9); POTASSIUM 3.8 mmol/L (3.5-5.1); TOT PROT 5.2 g/dl (6.4-8.2)
[2023-04-02] MEDS: MAGNESIUM SULFATE IN WATER 2 GM/50 ML IVPB IVPB ONE (10:03)
[2023-04-02] MEDS: NAPH,MB-DB/K PH,MBDB POWDER PACKET PO ONE (10:03)
[2023-04-02] MEDS: PANTOPRAZOLE SODIUM 40 MG VIAL IVPUSH SCH ×2 (11:54→12:07)
[2023-04-02 12:16] LABS: BASO % 0.5 % (0-2.0); EOS % 0.6 % (0-4.5); HEMATOCRIT 21.1 % (32.4-45.2); LYMPH % 13.5 % (8-40); MCH 26.9 pg (25.7-33.7); MCHC 33.4 g/dl (32.0-36.0); MEAN CELL VOLUME 80.4 fl (80-96); MEAN PLT VOLUME 11.5 fl (7.5-11.1); MONO % 8.3 % (3.8-10.2); NEUT % 77.1 % (42.8-82.8); PLATELET COUNT 81 10^3/uL (134-434); RBC 2.62 M/mm3 (3.60-5.2); RDW 15.5 % (11.6-15.6); WHITE BLOOD COUNT 10.6 K/mm3 (4.0-10.0)
[2023-04-02] MEDS: ACETAMINOPHEN 500 MG TABLET (FP) PO ONE (18:17)
[2023-04-03] MEDS: ACETAMINOPHEN 1000 MG/100 ML BAG IVPB PRN (09:45)
[2023-04-03] MEDS: PANTOPRAZOLE SODIUM 40 MG VIAL IVPUSH SCH (09:46)
[2023-04-03] MEDS: CEFTRIAXONE 2 GM in DEXTROSE 5%-WATER 100 ML IVPB SCH (17:56)
[2023-04-04 08:00] LABS: BASO % 0.7 % (0-2.0); EOS % 2.5 % (0-4.5); HEMATOCRIT 25.6 % (32.4-45.2); HEMOGLOBIN 8.4 GM/dL (10.7-15.3); LYMPH % 12.6 % (8-40); MCH 27.1 pg (25.7-33.7); MEAN CELL VOLUME 82.1 fl (80-96); MEAN PLT VOLUME 11.1 fl (7.5-11.1); MONO % 11.8 % (3.8-10.2); NEUT % 72.4 % (42.8-82.8); PLATELET COUNT 115 10^3/uL (134-434); RBC 3.12 M/mm3 (3.60-5.2); RDW 16.3 % (11.6-15.6); WHITE BLOOD COUNT 8.8 K/mm3 (4.0-10.0)
[2023-04-04 08:22] LABS: CHLORIDE 104 mmol/L (98-107); POTASSIUM 3.7 mmol/L (3.5-5.1); SODIUM 131 mmol/L (136-145)
[2023-04-04 08:27] LABS: ANION GAP 9 mmol/L (4-13); CALCIUM 7.6 mg/dL (8.5-10.1); CO2 18 mmol/L (21-32); GLUCOSE,RANDOM 262 mg/dL (74-106)
[2023-04-04 08:28] LABS: ALBUMIN 1.6 g/dl (3.4-5.0); BLOOD UREA NITROGEN 34.6 mg/dL (7-18)
[2023-04-04 08:30] LABS: CREATININE 1.9 mg/dL (0.55-1.3)
[2023-04-04 08:31] LABS: SGOT/AST 12 U/L (15-37)
[2023-04-04 08:32] LABS: BILIRUBIN,TOTAL 0.3 mg/dL (0.2-1); TOT PROT 5.5 g/dl (6.4-8.2)
[2023-04-04 08:33] LABS: ALK PHOS 130 U/L (45-117)
[2023-04-04 08:36] LABS: SGPT/ALT < 6 U/L (13-61)
[2023-04-04] MEDS: LIDOCAINE 4% PATCH TP SCH ×2 (10:14→14:02)
[2023-04-04] MEDS: LORATADINE 10 MG TABLET PO SCH (10:14)
[2023-04-04] MEDS: LISINOPRIL 5 MG TABLET PO SCH (13:48)
[2023-04-04] MEDS ORDERED: ACETAMINOPHEN 325 MG TABLET (FP) PO PRN (13:49)
[2023-04-04] MEDS: ACETAMINOPHEN 325 MG TABLET (FP) PO PRN (14:01)
[2023-04-04 15:21] LABS: EPI CELLS 28 /uL (0-25.1); HYALINE CASTS 0 /uL (0-3.1); URINE APPEARANCE CLEAR; URINE BACTERIA 15 /uL (0-1359); URINE BILIRUBIN NEGATIVE (NEGATIVE); URINE COLOR YELLOW; URINE GLUCOSE (UA) 2+ (NEGATIVE); URINE KETONE NEGATIVE (NEGATIVE); URINE LEUK ESTERASE TRACE (NEGATIVE); URINE NITRITE NEGATIVE (NEGATIVE); URINE PROTEIN 2+ (NEGATIVE); URINE RBC 44 /uL (0-23.9); URINE UROBILINOGEN 0.2 mg/dL (0.2-1.0); URINE WBC 63 /uL (0-25.8)
[2023-04-04 15:27] LABS: URINE UREA NITROGEN 192 mg/dL (350-1000)
[2023-04-04] MEDS ORDERED: INSULIN ASPART SLIDING SCALE (NOVOLOG) 1 VIAL SQ SCH (16:30)
[2023-04-04] MEDS: INSULIN (NOVOLOG) ASPART 100 UNITS/ML 10ML VIAL SQ SCH (16:54)
[2023-04-04] MEDS: INSULIN ASPART SLIDING SCALE (NOVOLOG) 1 VIAL SQ SCH (16:55)
[2023-04-04] MEDS: INSULIN (LEVEMIR) 100 UNITS/ML UNITS SQ SCH (21:50)
[2023-04-04] MEDS: LIDOCAINE PATCH REMOVAL MC SCH ×2 (22:00→22:01)
[2023-04-05] MEDS ORDERED: SODIUM CHLORIDE NASAL SPRAY 44 ML BOTTLE NS PRN (02:55)
[2023-04-05 06:29] LABS: HEMATOCRIT 24.4 % (32.4-45.2); HEMOGLOBIN 7.8 GM/dL (10.7-15.3); MCH 26.7 pg (25.7-33.7); MCHC 32.2 g/dl (32.0-36.0); MEAN PLT VOLUME 10.8 fl (7.5-11.1); PLATELET COUNT 119 10^3/uL (134-434); RBC 2.94 M/mm3 (3.60-5.2); RDW 16.2 % (11.6-15.6); WHITE BLOOD COUNT 9.4 K/mm3 (4.0-10.0)
[2023-04-05 06:49] LABS: CHLORIDE 112 mmol/L (98-107); POTASSIUM 3.7 mmol/L (3.5-5.1); SODIUM 139 mmol/L (136-145)
[2023-04-05 06:51] LABS: CALCIUM 7.6 mg/dL (8.5-10.1)
[2023-04-05 06:52] LABS: ALBUMIN 1.5 g/dl (3.4-5.0); ANION GAP 8 mmol/L (4-13); BLOOD UREA NITROGEN 27.4 mg/dL (7-18); CO2 19 mmol/L (21-32); GLUCOSE,RANDOM 137 mg/dL (74-106); MAGNESIUM 1.8 mg/dL (1.8-2.4)
[2023-04-05 06:55] LABS: CREATININE 1.5 mg/dL (0.55-1.3); SGOT/AST 10 U/L (15-37)
[2023-04-05 06:56] LABS: BILIRUBIN,TOTAL 0.2 mg/dL (0.2-1); TOT PROT 5.2 g/dl (6.4-8.2)
[2023-04-05 06:58] LABS: ALK PHOS 105 U/L (45-117)
[2023-04-05 07:10] LABS: SGPT/ALT < 6 U/L (13-61)
[2023-04-05 09:16] LABS: ANISOCYTOSIS 0; MACROCYTOSIS 0
[2023-04-06 08:32] LABS: BASO % 0.6 % (0-2.0); EOS % 2.7 % (0-4.5); HEMATOCRIT 25.4 % (32.4-45.2); HEMOGLOBIN 8.2 GM/dL (10.7-15.3); LYMPH % 11.2 % (8-40); MCH 26.7 pg (25.7-33.7); MCHC 32.2 g/dl (32.0-36.0); MEAN CELL VOLUME 82.8 fl (80-96); MEAN PLT VOLUME 10.6 fl (7.5-11.1); MONO % 8.8 % (3.8-10.2); NEUT % 76.7 % (42.8-82.8); PLATELET COUNT 165 10^3/uL (134-434); RBC 3.06 M/mm3 (3.60-5.2); RDW 16.2 % (11.6-15.6); WHITE BLOOD COUNT 10.5 K/mm3 (4.0-10.0)
[2023-04-06 08:49] LABS: CHLORIDE 115 mmol/L (98-107); POTASSIUM 3.7 mmol/L (3.5-5.1); SODIUM 143 mmol/L (136-145)
[2023-04-06 08:53] LABS: CALCIUM 7.8 mg/dL (8.5-10.1)
[2023-04-06 08:54] LABS: ALBUMIN 1.6 g/dl (3.4-5.0); ANION GAP 8 mmol/L (4-13); BLOOD UREA NITROGEN 22.4 mg/dL (7-18); CO2 20 mmol/L (21-32); GLUCOSE,RANDOM 59 mg/dL (74-106); MAGNESIUM 1.6 mg/dL (1.8-2.4)
[2023-04-06 08:57] LABS: CREATININE 1.3 mg/dL (0.55-1.3); SGOT/AST 11 U/L (15-37)
[2023-04-06 08:58] LABS: ALK PHOS 112 U/L (45-117)
[2023-04-06 08:59] LABS: BILIRUBIN,TOTAL 0.2 mg/dL (0.2-1); TOT PROT 5.7 g/dl (6.4-8.2)
[2023-04-06 09:04] LABS: SGPT/ALT < 6 U/L (13-61)
[2023-04-06] MEDS ORDERED: hydrALAZINE HCL 20 MG/ML VIAL IM PRN (17:31)
[2023-04-06] MEDS: METOPROLOL TARTRATE 25 MG TABLET (FP) PO ONE (17:42)
[2023-04-06 21:24] LABS: EPI CELLS 35 /uL (0-25.1); HYALINE CASTS 0 /uL (0-3.1); URINE APPEARANCE CLEAR; URINE BACTERIA 14 /uL (0-1359); URINE BILIRUBIN NEGATIVE (NEGATIVE); URINE COLOR YELLOW; URINE GLUCOSE (UA) TRACE (NEGATIVE); URINE KETONE NEGATIVE (NEGATIVE); URINE LEUK ESTERASE TRACE (NEGATIVE); URINE NITRITE NEGATIVE (NEGATIVE); URINE PROTEIN 3+ (NEGATIVE); URINE RBC 28 /uL (0-23.9); URINE UROBILINOGEN 0.2 mg/dL (0.2-1.0); URINE WBC 95 /uL (0-25.8)
[2023-04-06] MEDS: METOPROLOL TARTRATE 25 MG TABLET (FP) PO SCH (21:31)
[2023-04-06 23:24] LABS: YEAST MODERATE (NEGATIVE)
[2023-04-07 08:23] LABS: CHLORIDE 112 mmol/L (98-107); POTASSIUM 3.5 mmol/L (3.5-5.1); SODIUM 140 mmol/L (136-145)
[2023-04-07 08:24] LABS: BASO % 0.5 % (0-2.0); EOS % 2.5 % (0-4.5); HEMOGLOBIN 8.2 GM/dL (10.7-15.3); LYMPH % 12.9 % (8-40); MCH 26.8 pg (25.7-33.7); MCHC 32.8 g/dl (32.0-36.0); MEAN CELL VOLUME 81.8 fl (80-96); MEAN PLT VOLUME 10.1 fl (7.5-11.1); MONO % 6.8 % (3.8-10.2); NEUT % 77.3 % (42.8-82.8); PLATELET COUNT 217 10^3/uL (134-434); RBC 3.06 M/mm3 (3.60-5.2); RDW 16.5 % (11.6-15.6); WHITE BLOOD COUNT 13.4 K/mm3 (4.0-10.0)
[2023-04-07 08:26] LABS: INR 1.17 (0.83-1.09); PROTHROMBIN TIME (PATIENT) 13.5 SEC (9.7-13.0)
[2023-04-07 08:39] LABS: CALCIUM 7.3 mg/dL (8.5-10.1)
[2023-04-07 08:40] LABS: ALBUMIN 1.7 g/dl (3.4-5.0); ANION GAP 8 mmol/L (4-13); BLOOD UREA NITROGEN 18.3 mg/dL (7-18); CO2 20 mmol/L (21-32); GLUCOSE,RANDOM 53 mg/dL (74-106); MAGNESIUM 1.7 mg/dL (1.8-2.4)
[2023-04-07 08:42] LABS: CREATININE 1.3 mg/dL (0.55-1.3)
[2023-04-07 08:43] LABS: SGOT/AST 12 U/L (15-37); SGPT/ALT < 6 U/L (13-61); TOT PROT 5.7 g/dl (6.4-8.2)
[2023-04-07 08:44] LABS: ALK PHOS 108 U/L (45-117)
[2023-04-07 08:45] LABS: BILIRUBIN,TOTAL 1.1 mg/dL (0.2-1)
[2023-04-07] MEDS: PANTOPRAZOLE 40 MG TABLET PO SCH (21:34)
[2023-04-08 06:53] LABS: BASO % 0.4 % (0-2.0); EOS % 1.9 % (0-4.5); HEMATOCRIT 22.9 % (32.4-45.2); HEMOGLOBIN 7.5 GM/dL (10.7-15.3); LYMPH % 11.6 % (8-40); MCH 26.8 pg (25.7-33.7); MCHC 32.7 g/dl (32.0-36.0); MEAN CELL VOLUME 81.8 fl (80-96); MEAN PLT VOLUME 10.2 fl (7.5-11.1); MONO % 5.7 % (3.8-10.2); NEUT % 80.4 % (42.8-82.8); PLATELET COUNT 223 10^3/uL (134-434); RDW 16.3 % (11.6-15.6); WHITE BLOOD COUNT 14.6 K/mm3 (4.0-10.0)
[2023-04-08 07:05] LABS: CHLORIDE 112 mmol/L (98-107); POTASSIUM 3.6 mmol/L (3.5-5.1); SODIUM 141 mmol/L (136-145)
[2023-04-08 07:20] LABS: ALBUMIN 1.6 g/dl (3.4-5.0); BLOOD UREA NITROGEN 17.7 mg/dL (7-18); CALCIUM 7.6 mg/dL (8.5-10.1)
[2023-04-08 07:22] LABS: SGPT/ALT < 6 U/L (13-61)
[2023-04-08 07:24] LABS: ANION GAP 6 mmol/L (4-13); CO2 23 mmol/L (21-32); GLUCOSE,RANDOM 62 mg/dL (74-106); MAGNESIUM 1.7 mg/dL (1.8-2.4)
[2023-04-08 07:25] LABS: BILIRUBIN,TOTAL 0.5 mg/dL (0.2-1)
[2023-04-08 07:26] LABS: ALK PHOS 93 U/L (45-117); CREATININE 1.2 mg/dL (0.55-1.3); SGOT/AST 9 U/L (15-37)
[2023-04-08 07:28] LABS: TOT PROT 5.5 g/dl (6.4-8.2)
[2023-04-08] MEDS ORDERED: INSULIN (NOVOLOG) ASPART 100 UNITS/ML 10ML VIAL SQ SCH (07:38)
[2023-04-08] MEDS: INSULIN (LEVEMIR) 100 UNITS/ML UNITS SQ SCH (21:21)
[2023-04-09 08:49] LABS: BASO % 0.6 % (0-2.0); HEMATOCRIT 24.9 % (32.4-45.2); HEMOGLOBIN 8.1 GM/dL (10.7-15.3); LYMPH % 14.2 % (8-40); MCH 26.4 pg (25.7-33.7); MCHC 32.4 g/dl (32.0-36.0); MEAN CELL VOLUME 81.6 fl (80-96); MONO % 5.9 % (3.8-10.2); NEUT % 76.3 % (42.8-82.8); PLATELET COUNT 288 10^3/uL (134-434); RBC 3.06 M/mm3 (3.60-5.2); RDW 16.1 % (11.6-15.6); WHITE BLOOD COUNT 12.2 K/mm3 (4.0-10.0)
[2023-04-09 09:10] LABS: CHLORIDE 113 mmol/L (98-107); POTASSIUM 4.2 mmol/L (3.5-5.1); SODIUM 143 mmol/L (136-145)
[2023-04-09 09:12] LABS: CALCIUM 8.2 mg/dL (8.5-10.1)
[2023-04-09 09:14] LABS: ALBUMIN 1.8 g/dl (3.4-5.0); ANION GAP 5 mmol/L (4-13); BLOOD UREA NITROGEN 15.3 mg/dL (7-18); CO2 25 mmol/L (21-32); GLUCOSE,RANDOM 60 mg/dL (74-106); MAGNESIUM 1.3 mg/dL (1.8-2.4)
[2023-04-09 09:16] LABS: CREATININE 1.3 mg/dL (0.55-1.3); SGOT/AST 9 U/L (15-37)
[2023-04-09 09:18] LABS: BILIRUBIN,TOTAL 0.2 mg/dL (0.2-1); TOT PROT 6.4 g/dl (6.4-8.2)
[2023-04-09 09:20] LABS: ALK PHOS 103 U/L (45-117); SGPT/ALT < 6 U/L (13-61)
[2023-04-09] MEDS: FUROSEMIDE 40 MG/4 ML INJECTABLE VIAL IVPUSH ONE (09:29)
[2023-04-09] MEDS: POLYETHYLENE GLYCOL (HEALTHYLAX) 3350 17 GM PACKET PO SCH (09:31)
[2023-04-09] MEDS: CLARITHROMYCIN 500 MG TABLET (UD) PO SCH (10:45)
[2023-04-09] MEDS: MAGNESIUM SULF 50% (8.12 MEQ/2 ML-1 GM VIAL) IVPB ONE (15:24)
[2023-04-09] MEDS: MAGNESIUM SULFATE IN WATER 2 GM/50 ML IVPB IVPB ONE (17:17)
[2023-04-09 19:15] LABS: EPI CELLS 7 /uL (0-25.1); HYALINE CASTS 0 /uL (0-3.1); URINE APPEARANCE CLEAR; URINE BACTERIA 7 /uL (0-1359); URINE BILIRUBIN NEGATIVE (NEGATIVE); URINE COLOR YELLOW; URINE GLUCOSE (UA) NEGATIVE (NEGATIVE); URINE KETONE NEGATIVE (NEGATIVE); URINE LEUK ESTERASE NEGATIVE (NEGATIVE); URINE NITRITE NEGATIVE (NEGATIVE); URINE PROTEIN 2+ (NEGATIVE); URINE RBC 15 /uL (0-23.9); URINE UROBILINOGEN 0.2 mg/dL (0.2-1.0); URINE WBC 38 /uL (0-25.8)
[2023-04-09 19:20] LABS: CREATININE, URINE RANDOM < 13.0 mg/dL (30-150)
[2023-04-09] MEDS: SENNOSIDES/DOCUSATE COMBO (SENNA PLUS) TABLET (UD) PO SCH (21:19)
[2023-04-10 07:50] LABS: BASO % 0.4 % (0-2.0); EOS % 2.9 % (0-4.5); HEMATOCRIT 25.1 % (32.4-45.2); LYMPH % 17.3 % (8-40); MCH 26.4 pg (25.7-33.7); MCHC 31.9 g/dl (32.0-36.0); MEAN CELL VOLUME 82.7 fl (80-96); MEAN PLT VOLUME 10.2 fl (7.5-11.1); MONO % 5.7 % (3.8-10.2); NEUT % 73.7 % (42.8-82.8); PLATELET COUNT 307 10^3/uL (134-434); RBC 3.03 M/mm3 (3.60-5.2); RDW 15.9 % (11.6-15.6); WHITE BLOOD COUNT 13.5 K/mm3 (4.0-10.0)
[2023-04-10 07:55] LABS: CHLORIDE 106 mmol/L (98-107); POTASSIUM 4.1 mmol/L (3.5-5.1); SODIUM 138 mmol/L (136-145)
[2023-04-10 08:03] LABS: ANION GAP 9 mmol/L (4-13); BILIRUBIN,TOTAL 0.2 mg/dL (0.2-1); BLOOD UREA NITROGEN 18.1 mg/dL (7-18); CALCIUM 8.1 mg/dL (8.5-10.1); CO2 23 mmol/L (21-32); CREATININE 1.5 mg/dL (0.55-1.3); GLUCOSE,RANDOM 60 mg/dL (74-106); MAGNESIUM 2.3 mg/dL (1.8-2.4); SGPT/ALT < 6 U/L (13-61); TOT PROT 6.5 g/dl (6.4-8.2)
[2023-04-10 08:04] LABS: ALK PHOS 97 U/L (45-117)
[2023-04-10 08:06] LABS: SGOT/AST 15 U/L (15-37)
[2023-04-10 10:14] VITALS: BP 150/90; PULSE 85; RESP 18; TEMP 97.8
[2023-04-10] MEDS: METOPROLOL TARTRATE 25 MG TABLET (FP) PO SCH (10:20)
== END 2023-04-10 14:01 | disposition home or self-care (01) | DRG 720 ==
LOC: JER 18:12 → JERBED 04-01 01:24 → J4S 04-02 05:20
PROVIDERS: ADMIT Internal Medicine; ATTEND Nurse Practitioner
PROC: 0DB78ZX Excision of Stomach, Pylorus, Via Natural or Artificial Opening Endoscopic, Diagnostic (ICD-10-PCS; 2023-04-07)
PROC: 0DB98ZX Excision of Duodenum, Via Natural or Artificial Opening Endoscopic, Diagnostic (ICD-10-PCS; principal; 2023-04-07 11:45)
DX: A41.9 Sepsis, unspecified organism (principal); E87.1 Hypo-osmolality and hyponatremia; E87.5 Hyperkalemia; N17.9 Acute kidney failure, unspecified; E11.65 Type 2 diabetes mellitus with hyperglycemia; E87.20 Acidosis, unspecified; R65.20 Severe sepsis without septic shock; D62 Acute posthemorrhagic anemia; N39.0 Urinary tract infection, site not specified; N13.30 Unspecified hydronephrosis; N12 Tubulo-interstitial nephritis, not specified as acute or chronic; K31.7 Polyp of stomach and duodenum; K26.9 Duodenal ulcer, unspecified as acute or chronic, without hemorrhage or perforation; D69.6 Thrombocytopenia, unspecified; B96.81 Helicobacter pylori [H. pylori] as the cause of diseases classified elsewhere; E11.43 Type 2 diabetes mellitus with diabetic autonomic (poly)neuropathy; I10 Essential (primary) hypertension; K31.84 Gastroparesis; Z79.4 Long term (current) use of insulin; E78.5 Hyperlipidemia, unspecified
CPT/HCPCS: 0241U-QW; 36415; 36430; 70450-TC; 71045-TC-FY; 72125-TC; 74176-TC; 76705-TC; 76775-TC; 80048; 80053; 81003; 82010; 82272; 82570; 82728; 82803; 82962; 82977; 83036; 83540; 83550; 83605; 83690; 83735; 83935; 84100; 84156; 84300; 84484; 84540; 84703; 85025; 85045; 85610; 85730; 86850; 86900; 86901; 86922; 87040; 87086; 87186; 87338; 93005; 93010; 93306-TC; 97116-GP; 97162-GP; 99285-25; J0131; J1644; P9058

== ENCOUNTER 2023-09-19 23:38 | Emergency (ER) | payer OTHER ==
[2023-09-19 23:48] VITALS: BP 128/83; PULSE 90; RESP 18; TEMP 98.5; BMI 26.6
[2023-09-20] MEDS ORDERED: METOCLOPRAMIDE HCL INJECTION 10 MG/2 ML VIAL ONE (00:31)
[2023-09-20] MEDS: METOCLOPRAMIDE HCL INJECTION 10 MG/2 ML VIAL IVPUSH ONE (00:36)
[2023-09-20] MEDS: LACTATED RINGERS SOLUTION 1000 ML INFUS.BAG IV ONE (00:41)
[2023-09-20 00:42] LABS: BASO % 0.7 % (0-2.0); EOS % 0.9 % (0-4.5); HEMATOCRIT 38.6 % (32.4-45.2); LYMPH % 21.3 % (8-40); MCH 27.7 pg (25.7-33.7); MCHC 33.6 g/dl (32.0-36.0); MEAN CELL VOLUME 82.4 fl (80-96); MEAN PLT VOLUME 11.2 fl (7.5-11.1); MONO % 4.9 % (3.8-10.2); NEUT % 72.2 % (42.8-82.8); PLATELET COUNT 177 10^3/uL (134-434); RBC 4.68 M/mm3 (3.60-5.2); RDW 12.7 % (11.6-15.6); WHITE BLOOD COUNT 10.7 K/mm3 (4.0-10.0)
[2023-09-20 00:51] LABS: POTASSIUM 4.2 mmol/L (3.5-5.1)
[2023-09-20 00:53] LABS: CALCIUM 9.3 mg/dL (8.5-10.1)
[2023-09-20 00:54] LABS: ALBUMIN 3.2 g/dl (3.4-5.0); BLOOD UREA NITROGEN 48.1 mg/dL (7-18); MAGNESIUM 2.4 mg/dL (1.8-2.4)
[2023-09-20 00:57] LABS: CREATININE 2.6 mg/dL (0.55-1.3); PHOSPHOROUS 4.1 mg/dL (2.5-4.9)
[2023-09-20 00:58] LABS: BILIRUBIN,TOTAL 0.4 mg/dL (0.2-1); TOT PROT 7.1 g/dl (6.4-8.2)
== END 2023-09-20 03:02 | disposition home or self-care (01) ==
LOC: JER 23:38
PROC: 3E033GC Introduction of Other Therapeutic Substance into Peripheral Vein, Percutaneous Approach (ICD-10-PCS; principal; 2023-09-20)
DX: R11.2 Nausea with vomiting, unspecified (principal); R10.13 Epigastric pain
CPT/HCPCS: 36415; 80053; 83690; 83735; 84100; 84703; 85025; 93005; 93010; 99284-25